=== PATIENT | male | born 1970 | race Caucasian/White ===

== ENCOUNTER 2020-07-10 07:58 | Outpatient (REF) | payer OTHER, SELFPAY ==
--- NOTE | 2020-07-10 08:26 | XR_ITS ---
EXAMINATION: XR CALCANEUS, LEFT CLINICAL INFORMATION: Heel pain COMPARISON: None TECHNIQUE: Lateral and axial views of the left calcaneus were obtained. FINDINGS: No visible acute fracture or dislocation. Subtalar articulation grossly appears maintained. Mild dorsal spurring of the navicular. IMPRESSION: No evidence of acute fracture.
== END 2020-07-10 07:59 | disposition home or self-care (01) ==
LOC: HO.XRAY 07:58
PROVIDERS: PCP Internal Medicine; Visit Provider Internal Medicine
DX: M79.672 Pain in left foot (principal)
CPT/HCPCS: 73650

== ENCOUNTER 2021-06-13 15:04 | Outpatient (REF) | payer OTHER, SELFPAY ==
[2021-06-13 15:30] LABS: Hematocrit 43.4 % (42-52); Hemoglobin 14.9 g/dl (14.0-18.0); Mean Corpuscular HGB Conc 34.3 g/dl (31.0-36.0); Mean Corpuscular Hemoglobin 31.3 pg (27.0-33.0); Mean Corpuscular Volume 91.2 fL (80-98); Mean Platelet Volume 11.3 fL (9.4-12.4); Platelet Count 224 X10*3/uL (160-400); Red Blood Count 4.76 X10*6/uL (4.60-5.80); Red Cell Distribution Width 12.5 % (11.0-16.0); White Blood Count 8.1 X10*3/uL (4.8-10.8)
[2021-06-13 15:56] LABS: Alanine Aminotransferase 41 U/L (0-40); Albumin Level 4.3 g/dL (3.5-5.0); Alkaline Phosphatase 87 U/L (39-117); Anion Gap 12 (12-20); Aspartate Amino Transferase 33 U/L (5-37); Bilirubin Direct 0.2 mg/dL (0.0-0.5); Bilirubin Total 0.6 mg/dL (0.0-1.0); Blood Urea Nitrogen 13 mg/dL (9-16); Calcium 9.6 mg/dL (8.4-10.2); Carbon Dioxide 26 mmol/L (22-29); Chloride 106 mmol/L (96-108); Estimated Glomerular Filt Rate > 60; Glucose Random 125 mg/dL (60-115); Lipase 27 U/L (8-78); Potassium 4.1 mmol/L (3.3-5.1); Sodium 140 mmol/L (135-145); Total Protein 6.9 g/dL (6.5-8.0)
== END 2021-06-13 15:05 | disposition home or self-care (01) ==
LOC: HO.LAB 15:04
PROVIDERS: PCP Internal Medicine; Visit Provider Physician Assistant
DX: I10 Essential (primary) hypertension (principal); K52.9 Noninfective gastroenteritis and colitis, unspecified
CPT/HCPCS: 36415; 80048; 80076; 83690; 85027

== ENCOUNTER 2021-06-25 06:00 | Outpatient (REF) | payer OTHER, SELFPAY ==
--- NOTE | ~2021-06-25 | CT_ITS ---
EXAMINATION: CT ABDOMEN AND PELVIS WITH CONTRAST CLINICAL INFORMATION: None infected gastroenteritis and colitis COMPARISON: Previous CT November 2013 TECHNIQUE: Multidetector volumetric images were obtained from the superior aspect of the liver through the pubic symphysis following administration 85 mL of Omnipaque 350 intravenous contrast. Sagittal and coronal reformatted images were obtained on the technologist's workstation. Oral contrast: Yes This CT examination was performed using dose optimization techniques as appropriate, variously including the following: *Automated exposure control *Adjustment of mA and/or kV according to patient size (this includes techniques or standardized protocols for targeted exams where dose is matched to indication/reason for exam; i.e. extremities or head) *Use of iterative reconstruction technique DLP: 516 mGy-cm FINDINGS: LUNG BASES: The visualized lung bases are unremarkable. LIVER, GALLBLADDER, AND BILIARY TREE: There is mild fatty infiltration of the liver. The liver is otherwise normal. No focal hepatic lesion or biliary ductal dilatation is present. The gallbladder is unremarkable with no evidence of radiopaque gallstones, gallbladder wall thickening, or obvious pericholecystic inflammatory changes. PANCREAS: Unremarkable. SPLEEN: Unremarkable. ADRENAL GLANDS: Unremarkable. KIDNEYS AND URETERS: The kidneys are normal in size, shape, and attenuation. No hydronephrosis, hydroureter, or calculi seen. No perinephric stranding. BLADDER: Unremarkable. GASTROINTESTINAL TRACT: There is question of mild bowel wall thickening of the left colon and sigmoid colon/mild colitis. There is diverticulosis of the colon. No evidence of diverticulitis is seen. Small and large bowel is otherwise unremarkable. The appendix is normal. There is a small gastric diverticulum arising from the posterior proximal stomach. Stomach is otherwise unremarkable. The appendix is unremarkable. ABDOMINAL WALL: There are small inguinal hernias containing fat. LYMPH NODES: Normal. VASCULAR: Unremarkable. PELVIC VISCERA: Unremarkable. OSSEOUS STRUCTURES: There are mild degenerative changes of the spine. There is new increased sclerosis of the left pubic symphysis. There are small millimeter in size of sclerotic densities in the bilateral pelvis that are stable. CT/CT abdomen pelvis w con IMPRESSION: Question mild colitis of the distal colon. Diverticulosis of the colon. No evidence of diverticulitis. Small gastric diverticulum. Normal small bowel. Mild fatty infiltration of the liver. New sclerotic lesion in the left pubic symphysis. Follow-up bone scan recommended. Findings will be communicated by the [facility] work flow rn faculty.
[2021-06-25] MEDS: iohexoL 350 MG/ML 100 ML INFUS..BTL IV (08:47)
[2021-06-25] MEDS: Barium Sulfate Oral (Berry) 450 ML ORAL.SUSP 900 ML PO (08:49)
== END 2021-06-25 06:01 | disposition home or self-care (01) ==
LOC: HO.CT 06:00
PROVIDERS: PCP Internal Medicine; Visit Provider Physician Assistant
DX: K52.9 Noninfective gastroenteritis and colitis, unspecified (principal)
CPT/HCPCS: 74177; Q9967

== ENCOUNTER 2021-07-29 13:00 | Outpatient (REF) | payer OTHER, SELFPAY ==
[2021-07-29 15:40] LABS: Appearance Urine CLEAR; Color Urine YELLOW; Glucose Urine UA NEG (NEG); Leukocyte Esterase Urine NEG (NEG); Nitrite Urine NEG (NEG); Specific Gravity - Urine >= 1.030 (1.005-1.025); Urine Blood NEG (NEG); Urine Ketones NEG (NEG); Urine Protein NEG (NEG-TRACE)
== END 2021-07-29 13:01 | disposition home or self-care (01) ==
LOC: HO.LAB 13:00
PROVIDERS: PCP Internal Medicine; Referring Provider Internal Medicine; Visit Provider Nurse Practitioner
DX: K29.70 Gastritis, unspecified, without bleeding (principal); B96.81 Helicobacter pylori [H. pylori] as the cause of diseases classified elsewhere; R19.7 Diarrhea, unspecified; R22.1 Localized swelling, mass and lump, neck; R39.198 Other difficulties with micturition; Z80.0 Family history of malignant neoplasm of digestive organs
CPT/HCPCS: 36415; 81003; 86003

== ENCOUNTER → 2021-08-14 10:53 | Outpatient (REF) | payer OTHER, SELFPAY ==
--- NOTE | ~2021-08-14 | NM_ITS ---
EXAMINATION: NM BONE SCAN OF THE WHOLE BODY CLINICAL INFORMATION: Disorder of bone, new sclerotic lesion in the left pubic region. Left shoulder pain (rotator cuff), left knee and ankle pain intermittently. COMPARISON: No previous bone scan is available for comparison. No recent radiographs are available for comparison. The diagnostic CT scan of the abdomen and pelvis, dated 06/25/2021, is available for comparison. TECHNIQUE: Multiple gamma scintillation camera images of the whole body were performed 3 hours following the intravenous administration of 33 mCi Tc-99m MDP. FINDINGS: In the head, a small anterior midline maxillary focus of increased activity is present, probably related to dental disease. In the thoracic cage and upper extremities, there is mildly increased activity acromioclavicular and sternoclavicular joints bilaterally and in multiple periarticular foci in both hands and wrists, all likely arthritic. Some residual radiopharmaceutical at the injection site in the right antecubital fossa is noted. In the spine, no significant abnormalities are present. There is a minimal thoracolumbar scoliosis just barely perceptible with lower lumbar convexity to the left. In the pelvis, there is very minimally increased activity in the left side of the symphysis pubis. This corresponds to a sclerotic focus at this site on the 06/25/2021 CT scan. In the lower extremities, there is a mild diffuse increase in activity in the knees, slightly more intense on the left and predominantly in the patellar and medial compartments. There is minimally increased activity in the ankles bilaterally and the proximal feet. No other definite bony abnormalities are noted. The urinary bladder and faint visualization of both kidneys are noted. The CT scan dated 06/25/2021 shows a sclerotic focus in the left side of the symphysis pubis which was not present on a prior 11/17/2013 CT scan. NM/NM bone scan whole body IMPRESSION: Minimal abnormality in the left side of the symphysis pubis is nonspecific. The mild intensity suggests this is not due to metastatic disease, although the latter cannot be entirely ruled out. No other abnormality suspicious for metastatic disease are present at any site. Mild nonspecific abnormalities are noted as described above and these are all likely arthritic or traumatic in etiology. None of these abnormalities is strongly suspicious for metastatic disease.
== END ==
LOC: HO.NUCMED 10:53
PROVIDERS: Visit Provider Physician Assistant
DX: M89.9 Disorder of bone, unspecified (principal); Q78.2 Osteopetrosis
CPT/HCPCS: 78306; A9503

== ENCOUNTER 2022-03-24 08:48 | Outpatient (REF) | payer OTHER, SELFPAY ==
--- NOTE | ~2022-03-24 | XR_ITS ---
EXAMINATION: XR CERVICAL SPINE CLINICAL INFORMATION: Paresthesia of the skin. COMPARISON: None TECHNIQUE: 3 views of the cervical spine were obtained. FINDINGS: There is mild straightening of cervical lordosis. The vertebral heights and alignment are normal. There is loss of C4-C5, C5-C6 disc height with mild ventral and posterior spondylosis. No visible acute fracture, dislocation or subluxation seen. The prevertebral soft tissues are normal. XR/XR cervical spine 3V IMPRESSION: Degenerative disc changes C4-C5 and C5-C6 disc levels with mild ventral spondylosis. No visible acute fracture, dislocation or lytic process seen.
[2022-03-24 09:07] LABS: MANUAL DIFF FLAG NO
[2022-03-24 09:31] LABS: Basophils Absolute Auto 0.1 X10*3/uL (0.0-0.2); Basophils Percent Auto 0.6 % (0-2); Eosinophils Absolute Auto 0.2 X10*3/uL (0.0-0.4); Eosinophils Percent Auto 2.7 % (0-4); Hematocrit 42.3 % (42.0-52.0); Hemoglobin 14.7 g/dl (14.0-18.0); Imm Gran Abs Auto 0.04 X10*3/uL (0.00-0.03); Imm Gran Pct Auto 0.5 % (0.0-0.4); Lymphocytes Absolute Auto 2.3 X10*3/uL (1.2-4.9); Lymphocytes Percent Auto 29.8 % (20-40); Mean Corpuscular HGB Conc 34.8 g/dl (31.0-36.0); Mean Corpuscular Hemoglobin 32.2 pg (27.0-33.0); Mean Corpuscular Volume 92.6 fL (80.0-98.0); Mean Platelet Volume 11.4 fL (9.4-12.4); Monocytes Absolute Auto 0.5 X10*3/uL (0.1-1.2); Monocytes Percent Auto 6.6 % (2-11); Neutrophils Absolute Auto 4.7 x10*3/uL (2.0-8.3); Neutrophils Percent Auto 59.8 % (45-73); Platelet Count 197 X10*3/uL (160-400); Red Blood Count 4.57 X10*6/uL (4.60-5.80); Red Cell Distribution Width 12.2 % (11.0-16.0); White Blood Count 7.8 X10*3/uL (4.8-10.8)
[2022-03-24 10:14] LABS: Alanine Aminotransferase 39 U/L (0-40); Alkaline Phosphatase 82 U/L (39-117); Anion Gap 11 (12-20); Aspartate Amino Transferase 29 U/L (5-37); Blood Urea Nitrogen 14 mg/dL (9-16); Calcium 8.7 mg/dL (8.4-10.2); Carbon Dioxide 26 mmol/L (22-29); Chloride 107 mmol/L (96-108); Cholesterol 159 mg/dL; Estimated Glomerular Filt Rate > 60; Glucose Fasting 98 mg/dL (60-99); HDL Cholesterol 49 mg/dL; LDL Cholesterol Calculated 89 mg/dl; Potassium 4.2 mmol/L (3.3-5.1); Sodium 140 mmol/L (135-145); Total Protein 6.2 g/dL (6.5-8.0); Triglycerides 107 mg/dL
[2022-03-24 10:42] LABS: Prostate Specific Antigen Scr 0.34 ng/mL (<0.05-4.0); TSH reflex Free T4 0.62 uIU/mL (0.32-4.0); Vitamin D 25-OH Total 29.6 ng/mL (>30)
[2022-03-24 11:09] LABS: Appearance Urine CLEAR; Color Urine YELLOW; Glucose Urine UA NEG (NEG); Leukocyte Esterase Urine NEG (NEG); Nitrite Urine NEG (NEG); PH 6.5 (5.0-8.0); Specific Gravity - Urine 1.015 (1.005-1.025); Urine Blood NEG (NEG); Urine Ketones NEG (NEG); Urine Protein NEG (NEG-TRACE)
== END 2022-03-24 08:49 | disposition home or self-care (01) ==
LOC: HO.XRAY 08:48
PROVIDERS: PCP Internal Medicine; Visit Provider Internal Medicine
DX: Z00.00 Encounter for general adult medical examination without abnormal findings (principal); Z12.5 Encounter for screening for malignant neoplasm of prostate; E78.00 Pure hypercholesterolemia, unspecified; E55.9 Vitamin D deficiency, unspecified; R20.2 Paresthesia of skin
CPT/HCPCS: 36415; 72040; 80053; 80061; 81003; 82306; 84153; 84443; 85025

== ENCOUNTER 2022-05-05 11:58 | Outpatient (REF) | payer OTHER, SELFPAY ==
--- NOTE | ~2022-05-05 | XR_ITS ---
EXAMINATION: XR SHOULDER, LEFT CLINICAL INFORMATION: Pain COMPARISON: Previous x-ray October 2012 TECHNIQUE: AP external rotation, Grashey, scapular Y, and axillary views of the left shoulder. FINDINGS: Bone alignment is normal. No fracture or dislocation is seen. The glenohumeral joint is normal. There is arthritis at the acromioclavicular joint. Soft tissues are unremarkable. XR/XR shoulder LT min 2V IMPRESSION: Arthritis at the acromioclavicular joint.
== END 2022-05-05 11:59 | disposition home or self-care (01) ==
LOC: HO.HOSX 11:58
PROVIDERS: Visit Provider Orthopaedic Surgery
DX: M25.512 Pain in left shoulder (principal)
CPT/HCPCS: 73030

== ENCOUNTER 2022-05-26 18:06 | Outpatient (REF) | payer OTHER, SELFPAY ==
--- NOTE | ~2022-05-26 | MR_ITS ---
EXAMINATION: MR CERVICAL SPINE WITHOUT CONTRAST CLINICAL INFORMATION: 52-year-old with self-reported left-sided arm and finger numbness and tingling. COMPARISON: None. TECHNIQUE: MRI of the cervical spine was obtained using routine sequences without contrast. FINDINGS: Alignment: There is mild lordotic reversal centered at the C4-C5 level. Trace retrolisthesis noted at C6-C7. Craniocervical Junction/C1-C2 Articulations: Intact and aligned. Small effusions are noted at both atlantooccipital joints, which are nonspecific. Minor degenerative changes noted at the anterior atlantodental joint. Visualized Intracranial Structures: Within normal limits. Vertebral Bodies: Normal height. Disc Spaces and Endplates: Moderate disc space height loss at C3-C4 and severe disc space height loss at C4-C5 and C5-C6 with moderate to severe disc space height loss at C6-C7 and mild degrees of anterior marginal spondylosis between C4-C5 and C6-C7 inclusive. Schmorl's nodes noted at the C4-C5, C5-C6 and C6-C7. Multilevel intradiscal degenerative signal changes at these levels. Bone Marrow: Type I and type III degenerative marrow signal changes along the endplates at C4-C5. No suspicious marrow replacing process. C2-C3: Small central disc protrusion with a mild flattening of the central dural sac without cord impingement or canal stenosis. Mild uncinate process spurring on the left with minor bilateral facet arthrosis and mild left-sided neural foraminal stenosis. C3-C4: Broad-based central to left paramedian disc osteophyte complex noted with [id number] flattening of the dural sac asymmetric to the left without cord impingement or significant central canal stenosis. There is uncovertebral spurring, left more than right and minor facet arthrosis, with moderate to severe right and severe left-sided neural foraminal stenosis. C4-C5: Broad-based central to left paramedian disc osteophyte complex with moderate flattening of the ventral dural sac asymmetric to the left without spinal cord impingement or significant central canal stenosis. Slight ventral cord deformity noted on the left with a minimal degree of left-sided spinal cord volume loss noted consistent with a mild degree of spondylitic myelomalacia. There is uncovertebral spurring left more than right, with minor facet arthropathy, with severe left-sided and moderate to severe right-sided neural foraminal stenosis and left lateral recess stenosis. C5-C6: Broad-based disc osteophyte complex asymmetric to the left with flattening of the ventral dural sac left more than right without cord impingement or significant central canal stenosis. There is uncovertebral spurring left more than right with severe bilateral neural foraminal stenosis and left lateral recess stenosis. C6-C7: Broad-based disc protrusion asymmetric to the left with [id number] flattening of the ventral dural sac without cord impingement. Mild central canal stenosis is noted, with ligamentum flavum thickening at this level. There is uncovertebral spurring bilaterally and minor facet arthropathy with severe bilateral neural foraminal stenosis, left more than right. C7-T1: No disc herniation or canal stenosis. [id number] facet arthropathy noted bilaterally without significant canal stenosis. Mild left-sided neural foraminal stenosis is noted. Small central disc protrusion noted at T2-T3 without cord impingement. Spinal Cord: The cervical and visualized upper thoracic spinal cord is normal in signal intensity throughout, without focal lesion, edema or syrinx. Extracranial Soft Tissues: There are numerous nonenlarged bilateral upper cervical lymph nodes, which are nonspecific findings. Correlate for any history of infectious or inflammatory etiology. Normal signal voids are seen within the visualized major neck vessels. MR/MR cervical spine wo con IMPRESSION: 1. Mild lordotic reversal centered at C4-C5 with slight retrolisthesis at C6-C7, with multilevel DDD and spondylosis as described above. 2. Multilevel posterior disc osteophyte complex is asymmetric to the left between C3-C4 and C5-C6 inclusive and disc protrusions at C2-C3, C6-C7 and T2-T3 as discussed above with mild canal stenosis at C6-C7. No spinal cord impingement. Mild spondylitic myelomalacia on the left suspected at C5-C6. 3. Multilevel DJD as discussed above with extensive multilevel bilateral bony neural foraminal stenosis, left more than right and left lateral recess stenosis most apparent at C4-C5 and C5-C6 and to a lesser degree at C3-C4 and C6-C7. 4. Numerous nonenlarged upper cervical lymph nodes noted bilaterally. Correlate clinically for any possible infectious or inflammatory etiology.
--- NOTE | ~2022-05-26 | MR_ITS ---
EXAMINATION: MRI SHOULDER WITHOUT CONTRAST, LEFT CLINICAL INFORMATION: Left shoulder pain and weakness. COMPARISON: Left shoulder radiographs dated 05/05/2022 and MRI dated 12/01/2011. TECHNIQUE: Multisequence MR imaging of the left shoulder was obtained without contrast on a high-field strength scanner. FINDINGS: ROTATOR CUFF: Mild supraspinatus tendinosis is redemonstrated. No measurable rotator cuff tendon tear. No muscle atrophy or fatty infiltration. BICEPS: Intact. CORACOACROMIAL ARCH: The undersurface of the acromion is curved with tiny subacromial spurs. Moderate acromioclavicular arthritis, slightly progressed. Fluid and edema within the subacromial subdeltoid bursa, slightly more prominent when compared to the prior examination and consistent with bursitis. LABRUM/CAPSULE: Increasing attenuation and irregularity of the anterior and anteroinferior labrum consistent with irregular fraying. GLENOHUMERAL JOINT/MARROW: Small glenohumeral joint effusion. MR/MR shoulder LT wo con IMPRESSION: 1. Mild supraspinatus tendinosis is unchanged. No measurable rotator cuff tendon tear. 2. Moderate acromioclavicular osteoarthritis, slightly progressed. Tiny subacromial spurs. 3. Subacromial-subdeltoid bursitis, slightly more prominent when compared to the prior MRI. 4. Increasing irregular fraying through the anterior and anteroinferior labrum. Small glenohumeral joint effusion.
== END 2022-05-26 18:07 | disposition home or self-care (01) ==
LOC: HO.MRI 18:06
PROVIDERS: Visit Provider Orthopaedic Surgery
DX: M67.912 Unspecified disorder of synovium and tendon, left shoulder (principal); R94.138 Abnormal results of other function studies of peripheral nervous system
CPT/HCPCS: 72141; 73221

== ENCOUNTER 2022-07-18 10:52 | Outpatient (REF) | payer OTHER, SELFPAY ==
--- NOTE | ~2022-07-18 | XR_ITS ---
EXAMINATION: XR CHEST CLINICAL INFORMATION: Signs and symptoms of Circulatory abnormality COMPARISON: None TECHNIQUE: 2 views of the chest were obtained. FINDINGS: No significant abnormality is noted involving the heart, lungs, mediastinum, bony thorax or soft tissues. XR/XR chest 2V IMPRESSION: Unremarkable chest examination.
== END 2022-07-18 10:53 | disposition home or self-care (01) ==
LOC: HO.XRAY 10:52
PROVIDERS: PCP Internal Medicine; Visit Provider Internal Medicine
DX: R09.89 Other specified symptoms and signs involving the circulatory and respiratory systems (principal)
CPT/HCPCS: 71046

== ENCOUNTER 2023-02-11 07:57 | Outpatient (REF) | payer OTHER, SELFPAY ==
--- NOTE | ~2023-02-11 | XR_ITS ---
EXAMINATION: XR SHOULDER, LEFT CLINICAL INFORMATION: Left shoulder pain COMPARISON: 05/05/2022 TECHNIQUE: AP external rotation, Grashey, scapular Y, and axillary views of the left shoulder. FINDINGS: The bones and soft tissues are normal. No fracture. Glenohumeral and acromioclavicular alignment is anatomic with normal joint space. No abnormal soft tissue calcifications. XR/XR shoulder LT min 2V IMPRESSION: Normal left shoulder.
[2023-02-11 08:20] LABS: MANUAL DIFF FLAG NO
[2023-02-11 08:43] LABS: Basophils Absolute Auto 0.1 X10*3/uL (0.0-0.2); Basophils Percent Auto 0.9 % (0-2); Eosinophils Absolute Auto 0.2 X10*3/uL (0.0-0.4); Eosinophils Percent Auto 2.9 % (0-4); Hematocrit 47.1 % (42.0-52.0); Hemoglobin 16.1 g/dl (14.0-18.0); Imm Gran Abs Auto 0.04 X10*3/uL (0.00-0.03); Imm Gran Pct Auto 0.5 % (0.0-0.4); Lymphocytes Absolute Auto 2.5 X10*3/uL (1.2-4.9); Lymphocytes Percent Auto 30.6 % (20-40); Mean Corpuscular HGB Conc 34.2 g/dl (31.0-36.0); Mean Corpuscular Hemoglobin 31.9 pg (27.0-33.0); Mean Corpuscular Volume 93.5 fL (80.0-98.0); Mean Platelet Volume 11.1 fL (9.4-12.4); Monocytes Absolute Auto 0.6 X10*3/uL (0.1-1.2); Monocytes Percent Auto 7.6 % (2-11); Neutrophils Absolute Auto 4.7 x10*3/uL (2.0-8.3); Neutrophils Percent Auto 57.5 % (45-73); Platelet Count 249 X10*3/uL (160-400); Red Blood Count 5.04 X10*6/uL (4.60-5.80); Red Cell Distribution Width 12.7 % (11.0-16.0); White Blood Count 8.2 X10*3/uL (4.8-10.8)
[2023-02-11 09:45] LABS: Alanine Aminotransferase 44 U/L (0-40); Albumin Level 4.3 g/dL (3.5-5.0); Alkaline Phosphatase 84 U/L (39-117); Anion Gap 11 (12-20); Aspartate Amino Transferase 30 U/L (5-37); Bilirubin Total 1.1 mg/dL (0.0-1.0); Blood Urea Nitrogen 19 mg/dL (9-16); Calcium 9.3 mg/dL (8.4-10.2); Carbon Dioxide 28 mmol/L (22-29); Chloride 107 mmol/L (96-108); Cholesterol 202 mg/dL; Estimated Glomerular Filt Rate > 60; Glucose Fasting 105 mg/dL (60-99); HDL Cholesterol 50 mg/dL; LDL Cholesterol Calculated 130 mg/dl; Sodium 141 mmol/L (135-145); Total Protein 6.6 g/dL (6.5-8.0); Triglycerides 110 mg/dL
[2023-02-11 09:52] LABS: Prostate Specific Antigen Scr 0.35 ng/mL (<0.05-4.0); TSH reflex Free T4 1.36 uIU/mL (0.32-4.0); Vitamin D 25-OH Total 40.7 ng/mL (>30)
[2023-02-11 10:09] LABS: Appearance Urine Clear; Color Urine Yellow; Glucose Urine UA Negative (Negative); Leukocyte Esterase Urine Negative (Negative); Nitrite Urine Negative (Negative); PH 5.5 (5.0-9.0); Specific Gravity - Urine 1.025 (1.005-1.025); Urine Blood Negative (Negative); Urine Ketones Negative (Negative); Urine Protein Negative (Neg-Trace)
== END 2023-02-11 07:58 | disposition home or self-care (01) ==
LOC: HO.XRAY 07:57
PROVIDERS: PCP Internal Medicine; Visit Provider Internal Medicine
DX: Z00.00 Encounter for general adult medical examination without abnormal findings (principal); Z12.5 Encounter for screening for malignant neoplasm of prostate; I10 Essential (primary) hypertension; E55.9 Vitamin D deficiency, unspecified; E78.00 Pure hypercholesterolemia, unspecified; R30.0 Dysuria; M12.812 Other specific arthropathies, not elsewhere classified, left shoulder
CPT/HCPCS: 36415; 73030; 80053; 80061; 81003; 82306; 84153; 84443; 85025

== ENCOUNTER 2023-04-21 10:41 | Emergency (ER) | payer OTHER, SELFPAY ==
[2023-04-21 10:57] VITALS: BP 148/99; PULSE 84; RESP 16; TEMP 36.6; O2SAT 97; BMI 28.9
--- NOTE | 2023-04-21 12:58 | ED_ITS ---
HPI - Neuro Symptoms/Deficit General Chief Complaint: Stroke Stated Complaint: numbness on face Time Seen by Provider: 04/21/23 11:02 Source: patient Mode of arrival: ambulatory Limitations: no limitations History of Present Illness HPI Narrative: 53-year-old female presents with right-sided facial weakness. Symptoms started within the last 24 hours. The symptoms are moderate to severe. There is no clear relieving or exacerbating features. Patient notes discomfort in the right eye. He has no significant difficulty with tearing or discharge. Denies any headache, trauma. Patient reports recent viral respiratory infection. Patient has no history of stroke, TIA, cardiovascular disease. Related Data Previous Rx's Medication Instructions Recorded cyclobenzaprine 5 mg tablet 5 mg PO BID PRN muscle spasm #30 01/20/23 tabs lisinopril 5 mg tablet 5 mg PO DAILY 90 days #90 tabs 01/20/23 ibuprofen 800 mg tablet 800 mg PO TID PRN for fever #90 02/24/23 tabs prednisone 20 mg tablet 60 mg PO DAILY 7 days #21 tabs 04/21/23 valacyclovir 1 gram tablet 1,000 mg PO Q8H 7 days #21 tabs 04/21/23 (Valtrex) Allergies Allergy/AdvReac Type Severity Reaction Status Date / Time hydrocodone AdvReac Intermediate nausea,dizz Verified 01/20/23 09:06 iness Review of Systems Review of Systems: CONSTITUTIONAL: Denies weight loss, fever and chills. HEENT: Denies changes in vision and hearing. RESPIRATORY: Denies SOB and cough. CV: Denies palpitations no CP. GI: Denies abdominal pain, nausea, vomiting and diarrhea. : Denies dysuria and urinary frequency. MSK: Denies myalgia and joint pain. SKIN: Denies rash and pruritus. NEUROLOGICAL: Denies headache and syncope. PSYCHIATRIC: Denies recent changes in mood. Denies anxiety and depression. All other ROS are negative unless in HPI PMFSH Past Medical History Medical History Achilles tendinitis Allergic rhinitis Benign essential hypertension Cervical disc disease Occipital headache Overweight (BMI 25.0-29.9) Rotator cuff arthropathy of left shoulder Surgical History History of colonoscopy Family History Family History Father CVD (cardiovascular disease) Mother Diabetes Brain tumor Social History Social History Housing: House Alcohol intake: current Alcohol intake frequency: holidays/special occasions only Patient Tobacco Use Status: Former Tobacco user e-Cigarette/Vaping Use: Never Used Second Hand Smoke Exposure: Yes Advance Directives: No Advance Directives Information Provided: No service: No Current occupational status: employed Cognitive needs: No Hearing needs: No Vision needs: Yes Physical Exam Vital Signs: Vital Signs: Last Vital Signs Temp 98 F 04/21/23 10:57 Pulse 84 04/21/23 10:57 Resp 16 04/21/23 10:57 BP 148/99 H 04/21/23 10:57 Pulse Ox 97 04/21/23 10:57 O2 Del Method Room Air 04/21/23 10:57 BMI result Body Mass Index 28.9 GEN: Well developed, no acute distress, alert, oriented HEENT: Normocephalic, atraumatic, normal external ears, nose appears normal, no oropharyngeal edema or exudates Eyes: Normal to appearance Neck: Supple, no lymphadenopathy Respiratory: Talks in complete sentences, no respiratory distress, clear to auscultation bilaterally Cardiovascular: Regular rate and rhythm, no murmurs rubs or gallops Abdomen: Soft, nontender, nondistended, no guarding, no rebound Back: No CVA tenderness Extremities: No clubbing cyanosis or edema Neurologic: Right-sided facial droop, involves the forehead with difficulty furrowing his brow, closing eye Skin: No rash Course Course Course Narrative: Patient is being diagnosed with Franklin's palsy. Examination is very consistent with this. Patient will start prednisone and Valtrex. Will follow up with his primary care provider. He will return for any worsening or progression of symptoms. Medical Decision Making Medical Decision Making MDM Narrative: 53-year-old male presents with right-sided facial droop. Symptoms started within the last 24 hours. They are more symptoms are moderate. Examination is consistent with Franklin's palsy including the forehead. At this point, I will treat the patient for Franklin's palsy with Valtrex and prednisone. He will be inst ructed to return for any worsening or concerning symptoms. Differential Diagnosis Differential Diagnoses: The differential diagnosis associated with the presentation includes (Franklin's palsy, stroke, peripheral neuropathy) Tests considered The following testing was considered but not selected: Routine laboratory analysis, CT scan of the head. This not appear to be indicated based on the diagnosis of Franklin's palsy. Prescription Management I considered prescription management with: Antiviral Discharge Plan Discharge Clinical Impression: Franklin's palsy Patient Disposition: Home, Self-Care Instructions: Franklin Palsy (ED) Prescriptions: New valacyclovir [Valtrex] 1 gram tablet 1,000 mg PO Q8H 7 Days Qty: 21 0RF prednisone 20 mg tablet 60 mg PO DAILY 7 Days Qty: 21 0RF No Action ibuprofen 800 mg tablet 800 mg PO TID PRN (Reason: for fever) Qty: 90 0RF lisinopril 5 mg tablet 5 mg PO DAILY 90 Days Qty: 90 1RF cyclobenzaprine 5 mg tablet 5 mg PO BID PRN (Reason: muscle spasm) Qty: 30 2RF Referrals: Valeriy Ayon MD [Primary Care Provider] - 1 week Interventions: ED Discharge Assessment Last Done: 04/21/23 11:22 Discharge Date/Time: 04/21/23 11:22
== END 2023-04-21 11:22 | disposition home or self-care (01) ==
PROVIDERS: Emergency Provider Emergency Medicine; PCP Internal Medicine
DX: G51.0 Bell's palsy (principal)
CPT/HCPCS: 99282; 99283

== ENCOUNTER 2023-04-30 08:36 | Outpatient (AMB) | payer OTHER, SELFPAY ==
[2023-04-30 08:37] VITALS: BP 112/80; PULSE 86; O2SAT 96; BMI 29.9
--- NOTE | 2023-04-30 08:37 | A.OFFPC_ITS ---
Vital Signs 04/30/23 08:37 Height 5 ft 8 in Weight 196 lb 8 oz BMI 29.9 BP 112/80 Blood Pressure Location Lt brachial Position Sitting Pulse 86 Pulse Source Pulse Oximeter Pulse Oximetry (%) 96 Oxygen Delivery Method Room Air Intake Visit Reasons: bells palsy Recreation Therapist Required: No Accompanied by: Self / Same As Patient Allergies hydrocodone Adverse Reaction (Intermediate, Verified 04/30/23 09:01) nausea,dizziness Medication List - Last Reconciled 04/30/23 by Valeriy Ayon MD cyclobenzaprine 5 mg PO BID PRN ibuprofen 800 mg PO TID PRN lisinopril 5 mg PO DAILY 90 days Tobacco use date assessed: 04/30/23 Dental Screening Dental Screen Date: 04/30/23 Did you have a dental visit in the last 12 months?: No Did you have a dental problem in the last 6 months where you did not have access to dental care?: No Was dental information given to patient?: Patient has dentist HPI bells palsy HPI Details Patient comes in today for his F follow up visit He went to the ER last week for sudden onset of right-sided facial weakness and numbness Was on a vacation cruise with his family prior to the onset of his symptoms and recalls that he was not feeling too well at the start of the cruise (headaches, ear pain, hives) 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 and started on Valtrex and Prednisone x 1 week, which he just finished a couple of days ago States that he is still experiencing recurrent headaches and still has not noticed any significant improvement of his right facial numbness and weakness Has noticed that he is not able to close his right eye completely when he is sleeping and in wondering if wearing an eye patch can help He denies any fever or sore throat; still has some mild nasal congestion at times Denies any chest pains, no SOB No nausea/vomiting, no abdominal pain No change in bowel habits noted Adds that he has not been able to sleep at night for the past few weeks now and would like to get something temporarily to help him get some sleep PFSH Medical History Achilles tendinitis Allergic rhinitis Benign essential hypertension Cervical disc disease Occipital headache Overweight (BMI 25.0-29.9) Rotator cuff arthropathy of left shoulder Surgical History History of colonoscopy Family History Father CVD (cardiovascular disease) Mother Diabetes Brain tumor Social History Housing: House Alcohol intake: current Alcohol intake frequency: holidays/special occasions only Patient Tobacco Use Status: Former Tobacco user e-Cigarette/Vaping Use: Never Used Second Hand Smoke Exposure: Yes service: No Current occupational status: employed Cognitive needs: No Hearing needs: No Vision needs: Yes Questionnaire PHQ-9 Over the last 2 weeks, how often have you been bothered by any of the following problems? 1. Little interest or pleasure in doing things: not at all 2. Feeling down, depressed, or hopeless: not at all 3. Trouble falling or staying asleep, or sleeping too much: not at all 4. Feeling tired or having little energy: not at all 5. Poor appetite or overeating: not at all 6. Feeling bad about yourself - or that you are a failure or have let yourself or your family down: not at all 7. Trouble concentrating on things, such as reading the newspaper or watching television: not at all 8. Moving or speaking so slowly that other people could have noticed. Or the opposite - being so fidgety or restless that you have been moving around a lot more than usual: not at all 9. Thoughts that you would be better off or of hurting yourself in some way: not at all Total score: 0 Depression Screening Interpretation: Negative 75213 - PHQ-9 Billing: Yes Source: Developed by Drs. Solo Bach, Payton Lundy, Ryan Vallejo and colleagues, with an educational norris from [employer]. Thrive Questionnaire Date Thrive assessed: 04/30/23 I am a: Patient What is your living situation today?: I have a steady place to live Within the past 12 months, did the food you bought not last and you didn't have the money to get more?: Never true Within the past 12 months, did you worry whether your food would run out before you got money to buy more?: Never true Do you have trouble paying for medicines?: No Do you have trouble getting transportation to medical appointments?: No Do you have trouble paying your heating and electricity bill?: No Do you have trouble taking care of your child, family member or friend?: No Do you have trouble with day-to-day activities such as bathing, preparing meals, shopping, managing finances, etc.?: No Are you currently unemployed and looking for a job?: No Are you interested in more education?: No Please select the resources that you would like help with: None Currently or been in a relationship where the following occur: no concerns reported AUDIT C Alcohol Use Questionnaire (AUDIT-C) 1. How often do you have a drink containing alcohol?: Monthly or less 2. How many drinks containing alcohol do you have on a typical day when you are drinking?: 1 or 2 3. How often do you have six or more drinks on one occasion?: Never Total Score: 1 Score Reviewed/Action Taken: Yes DYLAN-7 AMB Questionnaire DYLAN-7 Date DYLAN - 7 assessed: 04/30/23 Feeling nervous, anxious, or on edge: 0 = Not at all Not being able to stop or control worryin = Not at all Worrying too much about different things: 0 = Not at all Trouble relaxin = Not at all Being so restless that it is hard to sit still: 0 = Not at all Becoming easily annoyed or irritable: 0 = Not at all Feeling afraid as if something awful might happen: 0 = Not at all Total DYLAN-7 score (0-4 normal; 5-9 mild; 10-14 moderate; 15-21 severe): 0 Source: Developed by Drs. Solo Bach, Payton Lundy, Ryan Vallejo and colleagues, with an educational norris from [employer]. Review of Systems Const Denies chills, Reports difficulty sleeping, Reports fatigue, Denies fever(s) and Reports headache(s) (recurrent) Eyes Denies blurry vision ENT Denies dysphagia, Denies dry mouth, Reports otalgia (in the right ear at times, mild), Denies facial pain, Reports headache(s) (recurrent), Reports nasal congestion (mild, on and off), Denies odynophagia, Denies sinus pain and Denies sore throat Card Denies chest pain, Denies palpitations and Denies dyspnea Resp Denies cough and Denies dyspnea GI Denies abdominal pain, Denies constipation, Denies dysphagia, Denies heartburn, Denies diarrhea, Denies nausea, Denies odynophagia and Denies vomiting Denies dysuria, Denies nocturia and Denies urinary frequency Skin/Breast Denies rash Neuro Details: (+) numbness and palsy/weakness over the right side of the face Reports headache(s) (recurrent) Endo Reports fatigue and Denies palpitations Physical exam (Primary Care) Vital Signs: Last Vital Signs Pulse 86 04/30/23 08:37 BP 112/80 04/30/23 08:37 Pulse Ox 96 04/30/23 08:37 Oxygen Delivery Method Room Air 04/30/23 08:37 BMI result Body Mass Index 29.9 Tobacco/Smoking Status: Tobacco use Status Tobacco use date assessed 04/30/23 04/30/23 08:43 Patient Tobacco Use Status Former Tobacco user 04/30/23 08:43 e-Cigarette/Vaping Use Never Used 04/30/23 08:43 PHQ-9: PHQ-9 Score PHQ-9: Total score 0 04/30/23 08:43 Depression Screening Interpretation: Negative Thrive Assessment: Date of Thrive Assessment Date Thrive assessed 04/30/23 04/30/23 08:43 Currently or been in a relationship where the following occur: no concerns reported Const General: no acute distress and alert HENMT Other: (+) right facial palsy, with shallow right nasolabial fold; (+) ptosis of the right upper eyelid Ears: TM's normal bilaterally and EAC's normal Throat: Yes posterior oropharynx normal and Yes tonsils normal (no TP congestion) Neck Neck: Yes no lymphadenopathy and Yes supple Resp Auscultation: clear to auscultation bilaterally, no rales and no wheezes Cardio Rate: regular rate Rhythm: regular rhythm Heart sounds: no murmurs GI Palpation (GI): Soft to palpation, nontender and No hepatosplenomegaly present Skin General skin exam: no rashes or lesions noted Extrem General: Yes no clubbing, cyanosis or edema Assessment and Plan Assessment & Plan (1) 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 - Franklin's palsy Plan: Will send patient for some labs HELEN for further evaluation, including test for Lyme disease - advised that if his Lyme disease titer comes back positive, then we will need to treat him for Lyme's S/P 7 days of oral Valtrex and Prednisone but will extend his Valacyclovir 1 gm Q 8 hours for another 5 days Advised that he can take OTC NSAIDs PRN for his headaches and pain Reassurance provided regarding the benign nature of Franklin's Palsy; patient handout regarding Franklin's Palsy also provided to patient Patient is also advised to keep his right eye covered as often as he can, including when he is sleeping, to keep his eye from drying out as Franklin's Palsy disrupts the facial nerve and he will not be able to close his eye completely or blink it as often as he should until his symptoms clear up completely, which may take weeks to sometimes months (2) Insomnia: Code(s): G47.00 - Insomnia, unspecified Qualifiers: Insomnia type: unspecified Qualified Code(s): G47.00 - Insomnia, unspecified Plan: Sleep hygiene discussed Will start him for now on Trazodone 50 mg Q HS PRN Plan Follow up as scheduled next month Orders: Orders Comprehensive Met. Panel Today G51.0 - Franklin's palsy Complete Blood Count Auto Diff Today G51.0 - Franklin's palsy Erythrocyte Sedimentation Rate Today G51.0 - Franklin's palsy, R51.9 - Headache, unspecified Lyme IgG/IgM w/reflex to WB Today G51.0 - Franklin's palsy Medications: New trazodone 50 mg PO BEDTIME PRN 30 tabs 0RF sleep Changed From valacyclovir (Valtrex) 1,000 mg PO Q8H 7 days 21 tabs 0RF G51.0 - Franklin's palsy To valacyclovir (Valtrex) to extend antiviral Tx x 5 more days 1,000 mg PO Q8H 5 days 15 tabs 0RF G51.0 - Franklin's palsy Coding Level of Care Code Est Pt Level 3 (60991) Diagnoses Right-sided Franklin's palsy G51.0 Insomnia G47.00 Insomnia type: unspecified
== END 2023-04-30 09:25 | disposition home or self-care (01) ==
PROVIDERS: PCP Internal Medicine; Visit Provider Internal Medicine
DX: G51.0 Bell's palsy (principal); G47.00 Insomnia, unspecified
CPT/HCPCS: 99213

== ENCOUNTER 2023-05-01 08:23 | Outpatient (REF) | payer OTHER, SELFPAY ==
[2023-05-01 08:39] LABS: MANUAL DIFF FLAG NO
[2023-05-01 08:57] LABS: Basophils Absolute Auto 0.1 X10*3/uL (0.0-0.2); Basophils Percent Auto 0.6 % (0-2); Eosinophils Absolute Auto 0.3 X10*3/uL (0.0-0.4); Eosinophils Percent Auto 2.4 % (0-4); Hematocrit 47.3 % (42.0-52.0); Hemoglobin 15.9 g/dl (14.0-18.0); Imm Gran Abs Auto 0.35 X10*3/uL (0.00-0.03); Imm Gran Pct Auto 2.8 % (0.0-0.4); Lymphocytes Absolute Auto 3.1 X10*3/uL (1.2-4.9); Lymphocytes Percent Auto 24.7 % (20-40); Mean Corpuscular HGB Conc 33.6 g/dl (31.0-36.0); Mean Corpuscular Hemoglobin 32.1 pg (27.0-33.0); Mean Corpuscular Volume 95.6 fL (80.0-98.0); Mean Platelet Volume 10.6 fL (9.4-12.4); Monocytes Percent Auto 7.7 % (2-11); Neutrophils Absolute Auto 7.6 x10*3/uL (2.0-8.3); Neutrophils Percent Auto 61.8 % (45-73); Platelet Count 259 X10*3/uL (160-400); Red Blood Count 4.95 X10*6/uL (4.60-5.80); Red Cell Distribution Width 13.9 % (11.0-16.0); White Blood Count 12.3 X10*3/uL (4.8-10.8)
[2023-05-01 09:37] LABS: Alanine Aminotransferase 83 U/L (0-40); Albumin Level 3.9 g/dL (3.5-5.0); Alkaline Phosphatase 107 U/L (39-117); Anion Gap 19 (12-20); Aspartate Amino Transferase 23 U/L (5-37); Bilirubin Total 0.8 mg/dL (0.0-1.0); Blood Urea Nitrogen 20 mg/dL (9-16); Calcium 9.6 mg/dL (8.4-10.2); Carbon Dioxide 20 mmol/L (22-29); Chloride 103 mmol/L (96-108); Estimated Glomerular Filt Rate > 60; Glucose Random 185 mg/dL (60-115); Potassium 3.9 mmol/L (3.3-5.1); Sodium 138 mmol/L (135-145); Total Protein 7.5 g/dL (6.5-8.0)
[2023-05-01 09:38] LABS: Erythrocyte Sedimentation Rate 21 MM/HR (0-15)
[2023-05-05 02:40] LABS: Lyme Blot 8.53 index
[2023-05-06 15:59] LABS: Lyme Abs Screen POSITIVE
[2023-05-06 16:00] LABS: 18 KD (IgG) Band REACTIVE; 23 KD (IgG) Band REACTIVE; 23 KD (IgM) Band REACTIVE; 28 KD (IgG) Band NON-REACTIVE; 30 KD (IgG) Band NON-REACTIVE; 39 KD (IgM) Band REACTIVE; 39KD (IgG) Band REACTIVE; 41 KD (IgM) Band REACTIVE; 41KD (IgG) Band REACTIVE; 45 KD (IgG) Band NON-REACTIVE; 58 KD (IgG) Band REACTIVE; 66 KD (IgG) Band NON-REACTIVE; 93 KD (IgG) Band REACTIVE; Lyme IgG Blot Interp POSITIVE (NEGATIVE); Lyme IgM Blot Interp POSITIVE (NEGATIVE)
== END 2023-05-01 08:24 | disposition home or self-care (01) ==
LOC: HO.LAB 08:23
PROVIDERS: PCP Internal Medicine; Visit Provider Internal Medicine
DX: G51.0 Bell's palsy (principal); R15.9 Full incontinence of feces
CPT/HCPCS: 36415; 80053; 85025; 85652; 86617; 86618

== ENCOUNTER 2023-05-25 10:00 | Outpatient (AMB) | payer OTHER, SELFPAY ==
[2023-05-25 10:01] VITALS: BP 128/80; PULSE 87; O2SAT 96; BMI 30.5
--- NOTE | 2023-05-25 10:01 | A.OFFPC_ITS ---
Vital Signs 05/25/23 10:01 Height 5 ft 8 in Weight 200 lb 8 oz BMI 30.5 BP 128/80 Blood Pressure Location Lt brachial Position Sitting Pulse 87 Pulse Source Pulse Oximeter Pulse Oximetry (%) 96 Oxygen Delivery Method Room Air Intake Visit Reasons: HTN, left shoulder pain/arm weakness, S/P fall Seismology Technical Officer Required: No Accompanied by: Self / Same As Patient Allergies hydrocodone Adverse Reaction (Intermediate, Verified 05/25/23 10:24) nausea,dizziness Medication List - Last Reconciled 05/25/23 by Valeriy Ayon MD cyclobenzaprine 5 mg PO BID PRN ibuprofen 800 mg PO TID PRN lisinopril 5 mg PO DAILY 90 days trazodone 50 mg PO BEDTIME PRN valacyclovir (Valtrex) 1,000 mg PO Q8H 5 days Tobacco use date assessed: 05/25/23 Dental Screening Dental Screen Date: 05/25/23 Did you have a dental visit in the last 12 months?: Yes Did you have a dental problem in the last 6 months where you did not have access to dental care?: No Was dental information given to patient?: Patient has dentist HPI HTN, left shoulder pain/arm weakness, S/P fall HPI Details Patient comes in today for his follow up visit States that he is feeling better overall and that his right-sided facial weakness from last month has improved significantly since Still has on and off left shoulder pain and neck pain but states that these have been manageable lately He denies any headaches or dizziness Denies any chest pains, no SOB No nausea/vomiting, no abdominal pain No change in bowel habits noted Would like to know how he did on his follow up labs done a few weeks ago [facility] Medical History (Updated 05/25/23 @ 10:53 by Valeriy Ayon MD) Achilles tendinitis Allergic rhinitis Benign essential hypertension Cervical disc disease Occipital headache Overweight (BMI 25.0-29.9) Pure hypercholesterolemia Rotator cuff arthropathy of left shoulder Surgical History History of colonoscopy Family History Father CVD (cardiovascular disease) Mother Diabetes Brain tumor Social History Housing: House Alcohol intake: current Alcohol intake frequency: holidays/special occasions only Patient Tobacco Use Status: Former Tobacco user e-Cigarette/Vaping Use: Never Used Second Hand Smoke Exposure: Yes service: No Current occupational status: employed Cognitive needs: No Hearing needs: No Vision needs: Yes Questionnaire PHQ-9 Over the last 2 weeks, how often have you been bothered by any of the following problems? 1. Little interest or pleasure in doing things: not at all 2. Feeling down, depressed, or hopeless: not at all 3. Trouble falling or staying asleep, or sleeping too much: not at all 4. Feeling tired or having little energy: not at all 5. Poor appetite or overeating: not at all 6. Feeling bad about yourself - or that you are a failure or have let yourself or your family down: not at all 7. Trouble concentrating on things, such as reading the newspaper or watching television: not at all 8. Moving or speaking so slowly that other people could have noticed. Or the opposite - being so fidgety or restless that you have been moving around a lot more than usual: not at all 9. Thoughts that you would be better off or of hurting yourself in some way: not at all Total score: 0 Depression Screening Interpretation: Negative 45188 - PHQ-9 Billing: Yes Source: Developed by Drs. Solo Bach, Payton Lundy, Ryan Vallejo and colleagues, with an educational norris from [employer]. Thrive Questionnaire Date Thrive assessed: 05/25/23 I am a: Patient What is your living situation today?: I have a steady place to live Within the past 12 months, did the food you bought not last and you didn't have the money to get more?: Never true Within the past 12 months, did you worry whether your food would run out before you got money to buy more?: Never true Do you have trouble paying for medicines?: No Do you have trouble getting transportation to medical appointments?: No Do you have trouble paying your heating and electricity bill?: No Do you have trouble taking care of your child, family member or friend?: No Do you have trouble with day-to-day activities such as bathing, preparing meals, shopping, managing finances, etc.?: No Are you currently unemployed and looking for a job?: No Are you interested in more education?: No Please select the resources that you would like help with: None Currently or been in a relationship where the following occur: no concerns reported AUDIT C Alcohol Use Questionnaire (AUDIT-C) 1. How often do you have a drink containing alcohol?: Monthly or less 2. How many drinks containing alcohol do you have on a typical day when you are drinking?: 1 or 2 3. How often do you have six or more drinks on one occasion?: Never Total Score: 1 Score Reviewed/Action Taken: Yes DYLAN-7 AMB Questionnaire DYLAN-7 Date DYLAN - 7 assessed: 05/25/23 Feeling nervous, anxious, or on edge: 0 = Not at all Not being able to stop or control worryin = Not at all Worrying too much about different things: 0 = Not at all Trouble relaxin = Not at all Being so restless that it is hard to sit still: 0 = Not at all Becoming easily annoyed or irritable: 0 = Not at all Feeling afraid as if something awful might happen: 0 = Not at all Total DYLAN-7 score (0-4 normal; 5-9 mild; 10-14 moderate; 15-21 severe): 0 Source: Developed by Drs. Solo Bach, Payton Lundy, Ryan Vallejo and colleagues, with an educational norris from [employer]. Review of Systems Const Denies chills, Reports difficulty sleeping (improving), Denies fatigue and Denies fever(s) Eyes Denies change in vision ENT Denies dysphagia, Denies dizziness, Denies otalgia, Reports neck pain (on and off), Denies odynophagia and Denies sore throat Card Denies chest pain, Denies palpitations and Denies dyspnea Resp Denies cough and Denies dyspnea GI Denies abdominal pain, Denies constipation, Denies dysphagia, Denies heartburn, Denies diarrhea, Denies nausea, Denies odynophagia and Denies vomiting Denies dysuria, Denies nocturia and Denies urinary frequency Musc Reports neck pain (on and off) Skin/Breast Denies rash Neuro Details: (+) residual mild numbness and palsy/weakness over the right side of the face - states that this has improved a lot from last month Denies dizziness Endo Denies fatigue and Denies palpitations Physical exam (Primary Care) Vital Signs: Last Vital Signs Pulse 87 05/25/23 10:01 BP 128/80 05/25/23 10:01 Pulse Ox 96 05/25/23 10:01 Oxygen Delivery Method Room Air 05/25/23 10:01 BMI result Body Mass Index 30.5 Tobacco/Smoking Status: Tobacco use Status Tobacco use date assessed 05/25/23 05/25/23 10:10 Patient Tobacco Use Status Former Tobacco user 05/25/23 10:10 e-Cigarette/Vaping Use Never Used 05/25/23 10:10 PHQ-9: PHQ-9 Score PHQ-9: Total score 0 05/25/23 10:10 Depression Screening Interpretation: Negative Thrive Assessment: Date of Thrive Assessment Date Thrive assessed 05/25/23 05/25/23 10:10 Currently or been in a relationship where the following occur: no concerns reported Const General: no acute distress and alert HENMT Other: (+) minimal right facial palsy - improved from last month Ears: TM's normal bilaterally and EAC's normal Throat: Yes posterior oropharynx normal and Yes tonsils normal (no TP congestion) Neck Neck: Yes no lymphadenopathy and Yes supple Resp Auscultation: clear to auscultation bilaterally, no rales and no wheezes Cardio Rate: regular rate Rhythm: regular rhythm Heart sounds: no murmurs GI Palpation (GI): Soft to palpation and nontender Auscultation: normal bowel sounds Skin Rashes: no rashes Extrem General: Yes no clubbing, cyanosis or edema Left upper extremity: shoulder/upper arm Details: tenderness and normal ROM Results Reviewed Results Reviewed: Laboratory Tests 03/24/22 02/11/23 05/01/23 09:04 08:17 08:38 WBC 12.3 H Hgb 15.9 Hct 47.3 Plt Count 259 ESR Sodium Potassium Creatinine Estimated GFR Random Glucose Calcium AST ALT Triglycerides 110 Cholesterol 159 202 LDL Cholesterol, Calc 89 130 HDL Cholesterol 50 05/01/23 05/01/23 08:38 08:38 WBC Hgb Hct Plt Count ESR 21 H Sodium 138 Potassium 3.9 D Creatinine 1.06 Estimated GFR > 60 Random Glucose 185 H Calcium 9.6 AST 23 ALT 83 H Triglycerides Cholesterol LDL Cholesterol, Calc HDL Cholesterol Assessment and Plan Assessment & Plan (1) Pure hypercholesterolemia: Code(s): E78.00 - Pure hypercholesterolemia, unspecified Plan: Results of his labs done a few weeks ago reviewed and discussed with patient - cautioned that his cholesterol levels have increased significantly from last year and his LDL cholesterol is now at 130 mg/dl, which is the highest it has been for him Reinforced low cholesterol diet Will recheck his labs and fasting lipids in 4 months for follow up and cautioned that we may need to start him on cholesterol-lowering medications if he cannot get his cholesterol back under control with diet modification alone (2) Benign essential hypertension: Code(s): I10 - Essential (primary) hypertension Plan: Advised that his blood pressure is currently much better controlled Reinforced low sodium diet - goal is systolic BP of 120 mm or less Continue Lisinopril 5 mg QD Patient is reminded to continue monitoring his blood pressure regularly (3) Impaired fasting glucose: Code(s): R73.01 - Impaired fasting glucose Plan: Advised that his blood sugar has been elevated the last couple of times they were checked Reinforced low calorie/low carb diet Patient admits that he has not been doing any exercise at all lately and has decided to start going back on a routine exercise regimen so he can try to improve on his numbers Will recheck his FBS and also check his HgbA1c in 4 months for follow up / further evaluation (4) Elevated LFTs: Code(s): R79.89 - Other specified abnormal findings of blood chemistry Plan: Cautioned also that his LFTs (ALT) have increased and are elevated on his recent labs - is most likely due to a combination of his weight, cholesterol and recent alcohol intake Advised that exercising and losing weight should help get these back to normal Have also cautioned to avoid drinking too much alcohol in the meantime Will recheck his LFTs in 4 months for follow up (5) 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 - Franklin's palsy Plan: Reassured that his right facial palsy has improved a lot and should continue to gradually and completely resolve over time S/P 7 days of oral Valtrex and Prednisone States that his previous headaches have also improved significantly and he hardly has to take anything for headaches lately (6) Rotator cuff arthropathy of left shoulder: Code(s): M12.812 - Other specific arthropathies, not elsewhere classified, left shoulder Plan: Left shoulder MRI done back in May 2022 revealed mild supraspinatus tendinosis that is unchanged from previous. No measurable rotator cuff tendon tear. There is also moderate acromioclavicular osteoarthritis, slightly progressed from previous, with tiny subacromial spurs. (+) subacromial- subdeltoid bursitis, slightly more prominent when compared to the prior MRI. There is also increasing irregular fraying through the anterior and anteroinferior labrum. (+) small glenohumeral joint effusion noted as well Was referred to physical therapy but he did not complete his sessions as he felt they were too expensive and he is just continuing with the exercise he learned from PT Continue Ibuprofen 800 mg TID PRN and Cyclobenzaprine 5 mg TID PRN (Rx refilled) for now and follow up with orthopedics as scheduled A recently requested repeat left shoulder MRI was denied by his insurance (7) Cervical disc disease: Code(s): M50.90 - Cervical disc disorder, unspecified, unspecified cervical region Plan: Still has on and off numbness and tingling sensation of the right arm related to his cervical disc disease Cervical MRI done in May 2022 revealed (+) mild lordotic reversal centered at C4-C5 with slight retrolisthesis at C6-C7, with multilevel DDD and spondylosis. There are multilevel posterior disc osteophyte complex is asymmetric to the left between C3-C4 and C5-C6 inclusive and disc protrusions at C2-C3, C6-C7 and T2-T3 as discussed above with mild canal stenosis at C6-C7. No spinal cord impingement. Mild spondylitic myelomalacia on the left suspected at C5-C6. (+) multilevel DJD as discussed above with extensive multilevel bilateral bony neural foraminal stenosis, left more than right and left lateral recess stenosis most apparent at C4-C5 and C5-C6 and to a lesser degree at C3-C4 and C6-C7 Recommend physical therapy as well for his neck, especially when his symptoms flare up; patient would like to hold off for now due to concerns about cost and will call for referral as needed for now (8) Allergic rhinitis: Code(s): J30.9 - Allergic rhinitis, unspecified Qualifiers: Allergic rhinitis trigger: unspecified Allergic rhinitis seasonality: unspecified Qualified Code(s): J30.9 - Allergic rhinitis, unspecified Plan: Continue OTC Loratadine 10 mg QD PRN and/or Fluticasone 50 mcg nasal spray QD PRN (9) Insomnia: Code(s): G47.00 - Insomnia, unspecified Qualifiers: Insomnia type: unspecified Qualified Code(s): G47.00 - Insomnia, unspecified Plan: Sleep hygiene reinforced Continue Trazodone 50 mg Q HS PRN (10) Obesity (BMI 30-39.9): Code(s): E66.9 - Obesity, unspecified Plan: Reinforced diet/exercise as tolerated/lose weight - patient has gained some weight over the past few months Plan Follow up in 4 months Orders: Orders Comprehensive [place]. Panel Fast 4 Months E78.00 - Pure hypercholesterolemia, unspecified Hemoglobin A1c 4 Months R73.01 - Impaired fasting glucose Lipid Panel 4 Months E78.00 - Pure hypercholesterolemia, unspecified TSH reflex Free T4 4 Months E78.00 - Pure hypercholesterolemia, unspecified Vitamin D 25-OH Total 4 Months E55.9 - Vitamin D deficiency, unspecified Complete Blood Count Auto Diff 4 Months I10 - Essential (primary) hypertension UA CC w/rflx Micro + Cult 4 Months R30.0 - Dysuria Coding Level of Care Code Est Pt Level 4 (95596) Diagnoses Pure hypercholesterolemia E78.00 Benign essential hypertension I10 Impaired fasting glucose R73.01 Elevated LFTs R79.89 Right-sided Franklin's palsy G51.0 Rotator cuff arthropathy of left shoulder M12.812 Cervical disc disease M50.90 Allergic rhinitis J30.9 Allergic rhinitis trigger: unspecified Allergic rhinitis seasonality: unspecified Insomnia G47.00 Insomnia type: unspecified Obesity (BMI 30-39.9) E66.9
== END 2023-05-25 10:58 | disposition home or self-care (01) ==
PROVIDERS: Visit Provider Internal Medicine
DX: E78.00 Pure hypercholesterolemia, unspecified (principal); I10 Essential (primary) hypertension; R73.01 Impaired fasting glucose; R79.89 Other specified abnormal findings of blood chemistry; G51.0 Bell's palsy; M12.812 Other specific arthropathies, not elsewhere classified, left shoulder; M50.90 Cervical disc disorder, unspecified, unspecified cervical region; J30.9 Allergic rhinitis, unspecified; G47.00 Insomnia, unspecified; E66.9 Obesity, unspecified
CPT/HCPCS: 99214

== ENCOUNTER 2023-09-03 10:01 | Outpatient (AMB) | payer OTHER, SELFPAY ==
--- NOTE | 2023-09-03 10:05 | AM.OFFVISNUR ---
Intake Intake Visit Reasons: Flu Vaccine Allergies hydrocodone Adverse Reaction (Intermediate, Verified 05/25/23 10:24) nausea,dizziness Office Procedures Flu Questionnaire Does the patient have a severe egg allergy?: No Does the patient have severe life threatening allergies?: No Does the patient have a fever or illness today?: No Has the patient ever had Guillain-Clayton Syndrome?: No Has the patient ever had any past reaction to a flu shot?: No Immunizations flu vacc [id number] 6mos up(PF) 60 mcg(15 mcgx4)/0.5 mL IM syringe Performing Provider: Valeriy Ayon MD [facility] Administered by: Shawnee Negro RN on 09/03/23 10:12 Dose Route Admin Location Dispensed Lot Number Expiration Date [employer] 0.5 mL IM Right Deltoid 0.5 mL [id number] 04/03/24 65935-728-13 [employer] VIS Given Date VIS Provided VIS Publication Date 09/03/23 Single Vaccine 21 Eligibility Eligibility Date Funding Source [place] [facility] [place] 09/03/23 Private Coding Assessment & Plan Assessment & Plan Orders: Orders Influenza [id number] Immunization Today Z23 - Encounter for immunization
== END 2023-09-03 10:13 | disposition home or self-care (01) ==
PROVIDERS: PCP Internal Medicine; Visit Provider Internal Medicine
DX: Z23 Encounter for immunization (principal)
CPT/HCPCS: 90471; 90686

== ENCOUNTER 2023-11-20 06:06 | Outpatient (REF) | payer OTHER, SELFPAY ==
[2023-11-20 06:22] LABS: MANUAL DIFF FLAG NO
[2023-11-20 07:30] LABS: Basophils Absolute Auto 0.1 X10*3/uL (0.0-0.2); Eosinophils Absolute Auto 0.2 X10*3/uL (0.0-0.4); Eosinophils Percent Auto 1.8 % (0-4); Hematocrit 44.4 % (42.0-52.0); Hemoglobin 15.4 g/dl (14.0-18.0); Imm Gran Abs Auto 0.17 X10*3/uL (0.00-0.03); Imm Gran Pct Auto 1.7 % (0.0-0.4); Lymphocytes Absolute Auto 2.5 X10*3/uL (1.2-4.9); Lymphocytes Percent Auto 24.9 % (20-40); Mean Corpuscular HGB Conc 34.7 g/dl (31.0-36.0); Mean Corpuscular Hemoglobin 31.8 pg (27.0-33.0); Mean Corpuscular Volume 91.5 fL (80.0-98.0); Mean Platelet Volume 10.5 fL (9.4-12.4); Monocytes Absolute Auto 0.8 X10*3/uL (0.1-1.2); Monocytes Percent Auto 7.8 % (2-11); Neutrophils Absolute Auto 6.4 x10*3/uL (2.0-8.3); Neutrophils Percent Auto 62.8 % (45-73); Platelet Count 339 X10*3/uL (160-400); Red Blood Count 4.85 X10*6/uL (4.60-5.80); Red Cell Distribution Width 11.8 % (11.0-16.0); White Blood Count 10.1 X10*3/uL (4.8-10.8)
[2023-11-20 07:31] LABS: Appearance Urine Clear; Color Urine Yellow; Glucose Urine UA Negative (Negative); Leukocyte Esterase Urine Negative (Negative); Nitrite Urine Negative (Negative); PH 5.5 (5.0-9.0); Urine Blood Negative (Negative); Urine Ketones Negative (Negative); Urine Protein Negative (Neg-Trace)
[2023-11-20 07:40] LABS: Estimated Average Glucose 111 mg/dL; Hemoglobin A1c % 5.5 % (<6.0)
[2023-11-20 08:06] LABS: Alanine Aminotransferase 32 U/L (0-40); Albumin Level 4.1 g/dL (3.5-5.0); Alkaline Phosphatase 78 U/L (39-117); Anion Gap 13 (12-20); Aspartate Amino Transferase 20 U/L (5-37); Bilirubin Total 0.4 mg/dL (0.0-1.0); Blood Urea Nitrogen 19 mg/dL (9-16); Carbon Dioxide 27 mmol/L (22-29); Chloride 104 mmol/L (96-108); Cholesterol 126 mg/dL (<200); Estimated Glomerular Filt Rate > 60; Glucose Fasting 114 mg/dL (60-99); HDL Cholesterol 34 mg/dL (>40); LDL Cholesterol Calculated 75 mg/dL (<100); Sodium 140 mmol/L (135-145); Total Protein 7.2 g/dL (6.5-8.0); Triglycerides 88 mg/dL (<150)
[2023-11-20 08:12] LABS: Prostate Specific Antigen 0.63 ng/mL (<0.05-4.0)
[2023-11-20 08:14] LABS: TSH reflex Free T4 2.32 uIU/mL (0.32-4.0); Vitamin D 25-OH Total 39.9 ng/mL (>30)
== END 2023-11-20 06:07 | disposition home or self-care (01) ==
LOC: HO.LAB 06:06
PROVIDERS: PCP Internal Medicine; Visit Provider Internal Medicine
DX: Z12.5 Encounter for screening for malignant neoplasm of prostate (principal); I10 Essential (primary) hypertension; R73.01 Impaired fasting glucose; E78.00 Pure hypercholesterolemia, unspecified; R30.0 Dysuria; N40.0 Benign prostatic hyperplasia without lower urinary tract symptoms; E55.9 Vitamin D deficiency, unspecified
CPT/HCPCS: 36415; 80053; 80061; 81003; 82306; 83036; 84153; 84443; 85025

== ENCOUNTER 2023-11-26 09:39 | Outpatient (AMB) | payer OTHER, SELFPAY ==
[2023-11-26 09:41] VITALS: BP 126/82; PULSE 94; O2SAT 97; BMI 29.9
--- NOTE | 2023-11-26 09:41 | MHC.PC.OV ---
Vital Signs 11/26/23 09:41 Height 5 ft 8 in Weight 196 lb 8 oz BMI 29.9 BP 126/82 Blood Pressure Location Lt brachial Position Sitting Pulse 94 Pulse Source Pulse Oximeter Pulse Oximetry (%) 97 Oxygen Delivery Method Room Air Intake Visit Reasons: hyperlipidemia, IFG, elevated LFTs Retail [employer] Required: No Accompanied by: Self / Same As Patient Allergies hydrocodone Adverse Reaction (Intermediate, Verified 11/26/23 10:12) nausea,dizziness Medication List - Last Reconciled 11/26/23 by Valeriy Ayon MD cyclobenzaprine 5 mg PO BID PRN ibuprofen 800 mg PO TID PRN lisinopril 5 mg PO DAILY 90 days trazodone 50 mg PO BEDTIME PRN Tobacco use date assessed: 11/26/23 Dental Screening Dental Screen Date: 11/26/23 Did you have a dental visit in the last 12 months?: No Did you have a dental problem in the last 6 months where you did not have access to dental care?: No Was dental information given to patient?: No HPI hyperlipidemia, IFG, elevated LFTs HPI Details Patient comes in today for his follow up visit States that he has not been feeling good lately Relates that his daughter came home one day just over a week ago with a cold and everyone in the house got sick over the next few days - states that they are just now starting to recover from their bouts of respiratory illness States that they all tested negative for COVID States that he's had some sore throat and recurrent cough with some mild chest congestion, and has also been experiencing some myalgias lately but notes that he's had increasing pain over his lower back for the past few days States that the pain is mostly over both sides of his lower back and he does not recall doing anything lately that could have made him hurt or strain his lower back He denies any headaches or dizziness ans denies any fever but his throat still feels slightly sore at present He has also noticed some blood occasionally when he blows his nose lately; coughs up dark to occasionally black mucus at times States that he has been feeling stressed out lately due to his not feeling good overall Denies any chest pains, no increased SOB No nausea/vomiting, no abdominal pain No change in bowel habits noted Had his follow up labs done last week - to discuss his results [facility] Medical History Pure hypercholesterolemia Benign essential hypertension Cervical disc disease Overweight (BMI 25.0-29.9) Allergic rhinitis Occipital headache Achilles tendinitis Rotator cuff arthropathy of left shoulder Surgical History History of colonoscopy Family History Father CVD (cardiovascular disease) Mother Diabetes Brain tumor Social History Housing: House Alcohol intake: current Alcohol intake frequency: holidays/special occasions only Patient Tobacco Use Status: Former Tobacco user e-Cigarette/Vaping Use: Never Used Second Hand Smoke Exposure: Yes service: No Current occupational status: employed Cognitive needs: No Hearing needs: No Vision needs: Yes Questionnaire PHQ-9 Over the last 2 weeks, how often have you been bothered by any of the following problems? 1. Little interest or pleasure in doing things: not at all 2. Feeling down, depressed, or hopeless: not at all 3. Trouble falling or staying asleep, or sleeping too much: not at all 4. Feeling tired or having little energy: not at all 5. Poor appetite or overeating: not at all 6. Feeling bad about yourself - or that you are a failure or have let yourself or your family down: not at all 7. Trouble concentrating on things, such as reading the newspaper or watching television: not at all 8. Moving or speaking so slowly that other people could have noticed. Or the opposite - being so fidgety or restless that you have been moving around a lot more than usual: not at all 9. Thoughts that you would be better off or of hurting yourself in some way: not at all Total score: 0 Depression Screening Interpretation: Negative Depression Screening Done: Yes 69763 - PHQ-9 Billing: Yes Source: Developed by Drs. Solo Bach, Payton Lundy, Ryan Vallejo and colleagues, with an educational norris from [employer]. Thrive Questionnaire Date Thrive assessed: 11/26/23 I am a: Patient What is your living situation today?: I have a steady place to live Within the past 12 months, did the food you bought not last and you didn't have the money to get more?: Never true Within the past 12 months, did you worry whether your food would run out before you got money to buy more?: Never true Do you have trouble paying for medicines?: No Do you have trouble getting transportation to medical appointments?: No Do you have trouble paying your heating and electricity bill?: No Do you have trouble taking care of your child, family member or friend?: No Do you have trouble with day-to-day activities such as bathing, preparing meals, shopping, managing finances, etc.?: No Are you currently unemployed and looking for a job?: No Are you interested in more education?: No Please select the resources that you would like help with: None Currently or been in a relationship where the following occur: no concerns reported THRIVE Score: 0 AUDIT C Alcohol Use Questionnaire (AUDIT-C) 1. How often do you have a drink containing alcohol?: Monthly or less 2. How many drinks containing alcohol do you have on a typical day when you are drinking?: 1 or 2 3. How often do you have six or more drinks on one occasion?: Never Total Score: 1 Score Reviewed/Action Taken: Yes DYLAN-7 AMB Questionnaire DYLAN-7 Date DYLAN - 7 assessed: 11/26/23 Feeling nervous, anxious, or on edge: 0 = Not at all Not being able to stop or control worryin = Not at all Worrying too much about different things: 0 = Not at all Trouble relaxin = Not at all Being so restless that it is hard to sit still: 0 = Not at all Becoming easily annoyed or irritable: 0 = Not at all Feeling afraid as if something awful might happen: 0 = Not at all Total DYLAN-7 score (0-4 normal; 5-9 mild; 10-14 moderate; 15-21 severe): 0 Source: Developed by Drs. Solo Bach, Payton Lundy, Ryan Vallejo and colleagues, with an educational norris from [employer]. Review of Systems Const Reports body aches, Denies chills, Reports fatigue, Denies fever(s) and Denies headache(s) ENT Denies dysphagia, Denies dizziness, Denies otalgia, Denies headache(s), Reports nasal congestion (mild), Reports neck pain (chronic), Denies odynophagia, Denies sinus pain and Reports sore throat (mild) Card Denies chest pain, Denies palpitations and Denies dyspnea Resp Denies chest congestion, Reports cough (recurrent; coughs up minimal phlegm), Denies dyspnea and Denies wheezing GI Denies abdominal pain, Denies constipation, Denies dysphagia, Denies heartburn, Denies diarrhea, Denies nausea, Denies odynophagia and Denies vomiting Denies dysuria, Denies nocturia and Denies urinary frequency Musc Reports back pain (increased lately over the lower lumbar areas bilaterally), Reports myalgias (mild), Reports arthralgias (left shoulder (chronic) but pain has been manageable) and Reports neck pain (chronic) Skin/Breast Denies rash Neuro Denies dizziness and Denies headache(s) Psych Reports anxiety (lately) Endo Reports fatigue and Denies palpitations Aller/Immun Denies wheezing Physical exam (Primary Care) Vital Signs: Last Vital Signs Pulse 94 11/26/23 09:41 BP 126/82 11/26/23 09:41 Pulse Ox 97 11/26/23 09:41 Oxygen Delivery Method Room Air 11/26/23 09:41 BMI result Body Mass Index 29.9 Tobacco/Smoking Status: Tobacco use Status Tobacco use date assessed 11/26/23 11/26/23 09:42 Patient Tobacco Use Status Former Tobacco user 11/26/23 09:42 e-Cigarette/Vaping Use Never Used 11/26/23 09:42 PHQ-9: PHQ-9 Score PHQ-9: Total score 0 11/26/23 09:48 Depression Screening Interpretation: Negative Thrive Assessment: Date of Thrive Assessment Date Thrive assessed 11/26/23 11/26/23 09:42 Currently or been in a relationship where the following occur: no concerns reported Const General: no acute distress, alert and anxious HENMT Ears: TM's normal bilaterally and EAC's normal Face and sinus: No sinus tenderness Throat: Yes abnormal tonsil ((+) mild tonsillar hypertrophy/congestion bilaterally) and Yes posterior oropharynx abnormal (increased erythema of the posterior pharynx) Neck Neck: Yes lymphadenopathy (over the posterior cervical areas bilaterally) Thyroid: Thyroid normal Resp Auscultation: clear to auscultation bilaterally, no rales and no wheezes Cardio Rate: regular rate Rhythm: regular rhythm Heart sounds: no murmurs GI Palpation (GI): Soft to palpation and nontender Auscultation: normal bowel sounds General: Yes no CVA tenderness Back/Spine/Pelvis Back: no CVA tenderness Thoracic/Lumbar Spine: paraspinal muscle tenderness bilaterally in the mid lumbar and in the lower lumbar and No lumbar spinal tenderness Skin Rashes: no rashes Extrem General: Yes no clubbing, cyanosis or edema Results Reviewed Results Reviewed: Laboratory Tests 11/20/23 11/20/23 11/20/23 06:20 06:20 06:20 WBC 10.1 Hgb 15.4 Hct 44.4 Plt Count 339 D Sodium 140 Potassium 4.0 Creatinine 0.97 Estimated GFR > 60 Fasting Glucose 114 H Hemoglobin A1c % 5.5 Calcium 9.0 D AST 20 ALT 32 Triglycerides 88 Cholesterol 126 LDL Cholesterol, Calc 75 HDL Cholesterol 34 L Prostate Specific Ag 0.63 25-OH Vitamin D Total 39.9 TSH 2.32 Urine pH Ur Specific [place] Urine Protein Urine Glucose (UA) Urine Blood Urine Nitrite Ur Leukocyte Esterase 11/20/23 11/20/23 06:25 06:25 WBC Hgb Hct Plt Count Sodium Potassium Creatinine Estimated GFR Fasting Glucose Hemoglobin A1c % Calcium AST ALT Triglycerides Cholesterol LDL Cholesterol, Calc HDL Cholesterol Prostate Specific Ag 25-OH Vitamin D Total TSH Urine pH 5.5 Ur Specific [place] 1.020 Urine Protein Negative Urine Glucose (UA) Negative Urine Blood Negative Urine Nitrite Negative Ur Leukocyte Esterase Negative Assessment and Plan Assessment & Plan (1) Pure hypercholesterolemia: Code(s): E78.00 - Pure hypercholesterolemia, unspecified Plan: Results of his labs done last week reviewed and discussed with patient - advised that his cholesterol levels have improved significantly from previous and that some of his numbers have been cut almost in half from before Reinforced low cholesterol diet Will recheck his labs and fasting lipids in 4 months for follow up (2) Benign essential hypertension: Code(s): I10 - Essential (primary) hypertension Plan: His blood pressure appears much better controlled lately Reinforced low sodium diet - goal is systolic BP of 120 mm or less Continue Lisinopril 5 mg QD Patient is reminded to continue monitoring his blood pressure regularly (3) Impaired fasting glucose: Code(s): R73.01 - Impaired fasting glucose Plan: Advised that his fasting blood sugar is still elevated at 114 mg/dl on his recent labs but his HgbA1c was normal at 5.5% His blood sugar has been elevated over the past few months when they were checked so we ordered a HgbA1c level for further evaluation - advised that this came out normal so there is no concern for diabetes at this time Reinforced low calorie/low carb diet Will recheck his FBS and his HgbA1c in 4 months for follow up (4) Elevated LFTs: Code(s): R79.89 - Other specified abnormal findings of blood chemistry Plan: Advised that his LFTs (ALT) have improved on his recent labs - were most likely due to a combination of his weight, cholesterol and alcohol intake Have again cautioned patient to avoid drinking too much alcohol and also avoid taking a lot of Tylenol-containing medications Will recheck his LFTs in 4 months for follow up (5) Rotator cuff arthropathy of left shoulder: Code(s): M12.812 - Other specific arthropathies, not elsewhere classified, left shoulder Plan: Left shoulder MRI done back in May 2022 revealed mild supraspinatus tendinosis that is unchanged from previous. No measurable rotator cuff tendon tear. There is also moderate acromioclavicular osteoarthritis, slightly progressed from previous, with tiny subacromial spurs. (+) subacromial-subdeltoid bursitis, slightly more prominent when compared to the prior MRI. There is also increasing irregular fraying through the anterior and anteroinferior labrum. (+) small glenohumeral joint effusion noted as well Was referred to physical therapy but he did not complete his sessions as he felt they were too expensive and he is just continuing with the exercise he learned from PT Continue Ibuprofen 800 mg TID PRN and Cyclobenzaprine 5 mg TID PRN (Rx refilled) for now and follow up with orthopedics as scheduled A recently requested repeat left shoulder MRI was denied by his insurance (6) Cervical disc disease: Code(s): M50.90 - Cervical disc disorder, unspecified, unspecified cervical region Plan: Still has on and off numbness and tingling sensation of the right arm related to his cervical disc disease Cervical MRI done in May 2022 revealed (+) mild lordotic reversal centered at C4-C5 with slight retrolisthesis at C6-C7, with multilevel DDD and spondylosis. There are multilevel posterior disc osteophyte complex is asymmetric to the left between C3-C4 and C5-C6 inclusive and disc protrusions at C2-C3, C6-C7 and T2-T3 as discussed above with mild canal stenosis at C6-C7. No spinal cord impingement. Mild spondylitic myelomalacia on the left suspected at C5-C6. (+) multilevel DJD as discussed above with extensive multilevel bilateral bony neural foraminal stenosis, left more than right and left lateral recess stenosis most apparent at C4-C5 and C5-C6 and to a lesser degree at C3-C4 and C6-C7 Recommend physical therapy as well for his neck, especially when his symptoms flare up; patient would like to hold off for now due to concerns about cost and will call for referral as needed for now (7) Allergic rhinitis: Code(s): J30.9 - Allergic rhinitis, unspecified Qualifiers: Allergic rhinitis trigger: unspecified Allergic rhinitis seasonality: unspecified Qualified Code(s): J30.9 - Allergic rhinitis, unspecified Plan: Continue OTC Loratadine 10 mg QD PRN and/or Fluticasone 50 mcg nasal spray QD PRN (8) Respiratory tract congestion with cough: Code(s): R05.8 - Other specified cough Plan: Patient is advised that majority of his recent symptoms that he finds concerning are likely due to some respiratory tract infection He does have some congestion /hypertrophy of his tonsils as well but his lungs sound mostly clear other than occasional faint rhonchi Will send him for some additional labs as well as chest x-rays HELEN for further evaluation (9) Low back pain: Code(s): M54.50 - Low back pain, unspecified Qualifiers: Chronicity: acute Back pain laterality: bilateral Sciatica presence: without sciatica Qualified Code(s): M54.50 - Low back pain, unspecified Plan: Advised that his recent increased lower back pain appear to be more due to muscular strain over the lumbar muscles bilaterally based on his exam but patient relates that he's had problems with recurrent low back pain over the years and has never really had any imaging studies done on his lower back He's had lumbar spine x-rays ordered back in 2011 but he never went and got them done Will send him for lumbar spine x-rays for further evaluation (10) Insomnia: Code(s): G47.00 - Insomnia, unspecified Qualifiers: Insomnia type: unspecified Qualified Code(s): G47.00 - Insomnia, unspecified Plan: Sleep hygiene reinforced Continue Trazodone 50 mg Q HS PRN (11) Overweight (BMI 25.0-29.9): Code(s): E66.3 - Overweight Plan: Reinforced diet/exercise as tolerated/lose weight - he has been able to lose some weight since his last visit Plan Follow up in 4 months Orders: Orders XR lumbar spine 2-3V Today M54.50 - Low back pain, unspecified Monotest Today J35.1 - Hypertrophy of tonsils, R05.8 - Other specified cough, R53.81 - Other malaise, R53.83 - Other fatigue XR chest 2V Today R05.9 - Cough, unspecified SARS-CoV2/FLU/RSV Today J35.1 - Hypertrophy of tonsils, J98.8 - Other specified respiratory disorders, R05.8 - Other specified cough, R53.81 - Other malaise, R53.83 - Other fatigue Erythrocyte Sedimentation Rate Today J35.1 - Hypertrophy of tonsils, R05.8 - Other specified cough, R53.81 - Other malaise, R53.83 - Other fatigue C Reactive Protein Today J35.1 - Hypertrophy of tonsils, R05.8 - Other specified cough, R53.81 - Other malaise, R53.83 - Other fatigue Lipid Panel 4 Months E78.00 - Pure hypercholesterolemia, unspecified Comprehensive [place]. Panel Fast 4 Months E78.00 - Pure hypercholesterolemia, unspecified Hemoglobin A1c 4 Months R73.01 - Impaired fasting glucose Coding Level of Care Code Est Pt Level 4 (11968) Diagnoses Pure hypercholesterolemia E78.00 Benign essential hypertension I10 Impaired fasting glucose R73.01 Elevated LFTs R79.89 Rotator cuff arthropathy of left shoulder M12.812 Cervical disc disease M50.90 Allergic rhinitis, unspecified seasonality, unspecified trigger J30.9 Allergic rhinitis trigger: unspecified Allergic rhinitis seasonality: unspecified Respiratory tract congestion with cough R05.8 Acute bilateral low back pain without sciatica M54.50 Chronicity: acute Back pain laterality: bilateral Sciatica presence: without sciatica Insomnia, unspecified type G47.00 Insomnia type: unspecified Overweight (BMI 25.0-29.9) E66.3
== END 2023-11-26 10:29 | disposition home or self-care (01) ==
PROVIDERS: PCP Internal Medicine; Visit Provider Internal Medicine
DX: E78.00 Pure hypercholesterolemia, unspecified (principal); I10 Essential (primary) hypertension; R73.01 Impaired fasting glucose; R79.89 Other specified abnormal findings of blood chemistry; M12.812 Other specific arthropathies, not elsewhere classified, left shoulder; M50.90 Cervical disc disorder, unspecified, unspecified cervical region; J30.9 Allergic rhinitis, unspecified; R05.8 Other specified cough; M54.50 Low back pain, unspecified; G47.00 Insomnia, unspecified; E66.3 Overweight
CPT/HCPCS: 99214

== ENCOUNTER 2023-11-26 10:35 | Outpatient (REF) | payer OTHER, SELFPAY ==
--- NOTE | ~2023-11-26 | XR_ITS ---
EXAMINATION: XR LUMBOSACRAL SPINE CLINICAL INFORMATION: Low back pain unspecified. Lingering productive cough and chest and lumbar pain. COMPARISON: Chest at 11/27/2023. TECHNIQUE: Three views of the lumbosacral spine. FINDINGS: Moderate degenerative changes in the bilateral sacroiliac joints. Degenerative changes in the imaged lower thoracic spine. Moderate multilevel lumbar spondylosis with loss of disc space height and hypertrophic change. Advanced facet arthritis in the [id number] lumbar spine. XR/XR lumbar spine 2-3V IMPRESSION: 1. Moderate multilevel lumbar spondylosis. 2. Advanced facet arthritis in the [id number] lumbar spine.
--- NOTE | ~2023-11-26 | XR_ITS ---
EXAMINATION: XR chest 2V CLINICAL INFORMATION: Reason for Exam R05.9 - Cough, unspecified COMPARISON: Chest radiograph 07/18/2022 TECHNIQUE: 2 views of the chest FINDINGS: Right lung base hazy opacity concerning for aspiration, atelectasis, or infection. No pneumothorax or pleural effusion. Unchanged cardiomediastinal silhouette. XR/XR chest 2V Impression: Right lung base hazy opacity concerning for aspiration, atelectasis, or infection.
[2023-11-26 11:44] LABS: Influenza A PCR NEGATIVE (Negative); Influenza B PCR NEGATIVE (Negative); Resp Syncy Virus RNA Qual PCR NEGATIVE (Negative); SARS COV2 PCR INHOUSE NEGATIVE (Negative)
[2023-11-26 12:14] LABS: C Reactive Protein 0.13 mg/dL (< or = 0.50)
[2023-11-26 12:18] LABS: Monotest Negative (Negative)
[2023-11-26 12:29] LABS: Erythrocyte Sedimentation Rate 9 MM/HR (0-15)
== END 2023-11-26 10:36 | disposition home or self-care (01) ==
LOC: HO.LAB 10:35
PROVIDERS: PCP Internal Medicine; Visit Provider Internal Medicine
DX: J98.8 Other specified respiratory disorders (principal); R53.81 Other malaise; R53.83 Other fatigue; J35.1 Hypertrophy of tonsils; R05.8 Other specified cough; M54.50 Low back pain, unspecified
CPT/HCPCS: 0241U; 71046; 72100; 85652; 86140; 86308

== ENCOUNTER 2024-03-30 09:47 | Outpatient (AMB) | payer OTHER, SELFPAY ==
--- NOTE | 2024-03-30 09:48 | A.OFFPC_ITS ---
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: No Accompanied by: Self / Same As Patient Allergies hydrocodone Adverse Reaction (Intermediate, Verified 03/30/24 10:16) nausea,dizziness Medication List - Last Reconciled 03/30/24 by Valeriy Ayon MD cyclobenzaprine 5 mg PO BID PRN ibuprofen 800 mg PO TID PRN lisinopril 5 mg PO DAILY 90 days trazodone 50 mg PO BEDTIME PRN Tobacco use date assessed: 11/26/23 Dental Screening Dental Screen Date: 11/26/23 HPI hyperlipidemia, low back pain HPI Details Patient comes in today for his follow up visit He has gained a lot of weight (over 10 pounds) since his last visit; states that he just came back from vacation in [place], which included a trip to [place] with his family States that he feels okay He denies any headaches or dizziness Denies any chest pains, no SOB No nausea/vomiting, no abdominal pain No change in bowel habits noted Feels that his libido has declined a lot over the past year and he would like to know if there is anything he needs to get this checked out States that his shoulder is still bothering him a lot but he has been able to manage his shoulder pain so far He was not able to get his follow up labs done yet - states that he will try to go and get them done tomorrow morning [facility] Medical History (Updated 03/30/24 @ 11:15 by Valeriy Ayon MD) Lumbar degenerative disc disease Pure hypercholesterolemia Benign essential hypertension Cervical disc disease Overweight (BMI 25.0-29.9) Allergic rhinitis Occipital headache Achilles tendinitis Rotator cuff arthropathy of left shoulder Surgical History History of colonoscopy Family History Father CVD (cardiovascular disease) Mother Diabetes Brain tumor Social History Housing: House Alcohol intake: current Alcohol intake frequency: holidays/special occasions only Patient Tobacco Use Status: Former Tobacco user e-Cigarette/Vaping Use: Never Used Second Hand Smoke Exposure: Yes service: No Current occupational status: employed Current occupational exposures/hazards: No Cognitive needs: No Hearing needs: No Vision needs: Yes Questionnaire Thrive Questionnaire Date Thrive assessed: 11/26/23 DYLAN-7 AMB Questionnaire DYLAN-7 Date DYLAN - 7 assessed: 03/30/24 Feeling nervous, anxious, or on edge: 0 = Not at all Not being able to stop or control worryin = Not at all Worrying too much about different things: 0 = Not at all Trouble relaxin = Not at all Being so restless that it is hard to sit still: 0 = Not at all Becoming easily annoyed or irritable: 0 = Not at all Feeling afraid as if something awful might happen: 0 = Not at all Total DYLAN-7 score (0-4 normal; 5-9 mild; 10-14 moderate; 15-21 severe): 0 Source: Developed by Drs. Solo Bach, Payton Lundy, Ryan Vallejo and colleagues, with an educational norris from [employer]. Review of Systems Const Denies chills, Reports fatigue, Denies fever(s) and Denies headache(s) ENT Denies dysphagia, Denies dizziness, Denies otalgia, Denies headache(s), Reports neck pain (chronic), Denies odynophagia and Denies sore throat Card Denies chest pain, Denies palpitations and Denies dyspnea Resp Denies chest congestion, Denies dyspnea and Denies wheezing GI Denies abdominal pain, Denies constipation, Denies dysphagia, Denies heartburn, Denies diarrhea, Denies nausea, Denies odynophagia and Denies vomiting Reports change in libido (feels that this has decreased for him lately), Denies dysuria, Denies nocturia and Denies urinary frequency Musc Reports back pain (increased lately over the lower lumbar areas bilaterally), Reports arthralgias (left shoulder (chronic) but pain has been manageable), Denies muscle weakness and Reports neck pain (chronic) Skin/Breast Denies rash Neuro Denies dizziness and Denies headache(s) Psych Reports anxiety and Reports change in libido (feels that this has decreased for him lately) Endo Reports change in libido (feels that this has decreased for him lately), Reports fatigue and Denies palpitations Aller/Immun Denies wheezing Physical exam (Primary Care) Vital Signs: Last Vital Signs Pulse 81 03/30/24 09:49 BP 146/92 H 03/30/24 09:49 Pulse Ox 96 03/30/24 09:49 Oxygen Delivery Method Room Air 03/30/24 09:49 BMI result Body Mass Index 31.9 Tobacco/Smoking Status: Tobacco use Status Tobacco use date assessed 11/26/23 03/30/24 09:54 Patient Tobacco Use Status Former Tobacco user 03/30/24 09:54 e-Cigarette/Vaping Use Never Used 03/30/24 09:54 Thrive Assessment: Date of Thrive Assessment Date Thrive assessed 11/26/23 03/30/24 09:54 Const General: no acute distress and alert HENMT Ears: TM's normal bilaterally and EAC's normal Throat: Yes posterior oropharynx normal and Yes tonsils normal Neck Neck: Yes no lymphadenopathy Thyroid: Thyroid normal Resp Auscultation: clear to auscultation bilaterally, no rales and no wheezes Cardio Rate: regular rate Rhythm: regular rhythm Heart sounds: no murmurs GI Palpation (GI): Soft to palpation and nontender Auscultation: normal bowel sounds General: Yes no CVA tenderness Back/Spine/Pelvis Back: no CVA tenderness Cervical Spine: Cervical spine tenderness Thoracic/Lumbar Spine: paraspinal muscle tenderness bilaterally in the mid lumbar and in the lower lumbar and No lumbar spinal tenderness Skin Rashes: no rashes Extrem General: Yes no clubbing, cyanosis or edema Assessment and Plan Assessment & Plan (1) Pure hypercholesterolemia: Code(s): E78.00 - Pure hypercholesterolemia, unspecified Plan: He was not able to get his previously ordered labs done prior to his visit today - states that he will try to get these done tomorrow morning Reinforced low cholesterol diet (2) Benign essential hypertension: Code(s): I10 - Essential (primary) hypertension Plan: His blood pressure appears high again today, likely because he has gained a lot of weight since his last visit Reinforced low sodium diet - goal is systolic BP of 120 mm or less Continue Lisinopril 5 mg QD for now - advised that his BP should improve if he can lose at least some of the weight that he gained recently Patient is reminded to continue monitoring his blood pressure regularly (3) Impaired fasting glucose: Code(s): R73.01 - Impaired fasting glucose Plan: He is reminded that his fasting blood sugar was still elevated at 114 mg/dl on his previous labs but his HgbA1c was normal at 5.5% Reinforced low calorie/low carb diet Will recheck his FBS and his HgbA1c HELEN for follow up (4) Elevated LFTs: Code(s): R79.89 - Other specified abnormal findings of blood chemistry Plan: His LFTs (ALT) have improved and were back to normal on his previous labs - were most likely due to a combination of his weight, cholesterol and alcohol intake Have again cautioned patient to avoid drinking too much alcohol and also avoid taking a lot of Tylenol-containing medications Will recheck his LFTs HELEN for follow up (5) Allergic rhinitis: Code(s): J30.9 - Allergic rhinitis, unspecified Qualifiers: Allergic rhinitis trigger: unspecified Allergic rhinitis seasonality: unspecified Qualified Code(s): J30.9 - Allergic rhinitis, unspecified Plan: Continue OTC Loratadine 10 mg QD PRN and/or Fluticasone 50 mcg nasal spray QD PRN (6) Rotator cuff arthropathy of left shoulder: Code(s): M12.812 - Other specific arthropathies, not elsewhere classified, left shoulder Plan: Left shoulder MRI done back in May 2022 revealed mild supraspinatus tendinosis that is unchanged from previous with no measurable rotator cuff tendon tear. There is also moderate acromioclavicular osteoarthritis, slightly progressed from previous, with tiny subacromial spurs and (+) subacromial- subdeltoid bursitis, slightly more prominent when compared to the prior MRI. There is also increasing irregular fraying through the anterior and anteroinferior labrum, with (+) small glenohumeral joint effusion noted as well He was referred to physical therapy but he did not complete his sessions as he felt they were too expensive and he is just continuing with the exercise he learned from PT Repeat left shoulder MRI was denied by his insurance Continue Ibuprofen 800 mg TID PRN and Cyclobenzaprine 5 mg TID PRN Follow up with orthopedics as scheduled (7) Cervical disc disease: Code(s): M50.90 - Cervical disc disorder, unspecified, unspecified cervical region Plan: Patient still has on and off numbness and tingling sensation of the right arm related to his cervical disc disease Cervical MRI done in May 2022 revealed (+) mild lordotic reversal centered at C4-C5 with slight retrolisthesis at C6-C7, with multilevel DDD and spondylosis. There are multilevel posterior disc osteophyte complex is asymmetric to the left between C3-C4 and C5-C6 inclusive and disc protrusions at C2-C3, C6-C7 and T2-T3 as discussed above with mild canal stenosis at C6-C7. No spinal cord impingement. Mild spondylitic myelomalacia on the left suspected at C5-C6. (+) multilevel DJD as discussed above with extensive multilevel bilateral bony neural foraminal stenosis, left more than right and left lateral recess stenosis most apparent at C4-C5 and C5-C6 and to a lesser degree at C3-C4 and C6-C7 Have recommend physical therapy for his neck, especially when his symptoms flare up; patient would like to hold off for now due to concerns about cost and will call for referral as needed (8) Lumbar degenerative disc disease: Code(s): M51.36 - Other intervertebral disc degeneration, lumbar region Plan: Reinforced activity and weight-lifting restrictions Lumbar spine x-rays done in November 2023 revealed (+) moderate multilevel lumbar spondylosis with advanced facet arthritis in the [id number] lumbar spine (9) Low libido: Code(s): R68.82 - Decreased libido Plan: Patient is advised that this is likely multifactorial and factors may include his weight and his recent weight gain, inconsistent work out and physical acti vity/exercise, as well as his high blood pressure and medication(s) as well as high cholesterol Advised that his anxiety may also be contributing to this Will include a serum testosterone level as well as repeat CBC and TSH with his labs for further evaluation (10) Insomnia: Code(s): G47.00 - Insomnia, unspecified Qualifiers: Insomnia type: unspecified Qualified Code(s): G47.00 - Insomnia, unspecified Plan: Sleep hygiene reinforced Continue Trazodone 50 mg Q HS PRN (11) Obesity (BMI 30-39.9): Code(s): E66.9 - Obesity, unspecified Plan: Reinforced diet/exercise as tolerated/lose weight - he has gained over 10 to 12 pounds since his last visit Plan Follow up in 4 months Orders: Orders Testosterone, Free/Total Today R79.89 - Other specified abnormal findings of blood chemistry UA CC w/rflx Micro + Cult Today R30.0 - Dysuria Vitamin D 25-OH Total Today E55.9 - Vitamin D deficiency, unspecified TSH reflex Free T4 Today E78.00 - Pure hypercholesterolemia, unspecified Complete Blood Count Auto Diff Today D64.9 - Anemia, unspecified Coding Level of Care Code Est Pt Level 4 (15616) Diagnoses Pure hypercholesterolemia E78.00 Benign essential hypertension I10 Impaired fasting glucose R73.01 Elevated LFTs R79.89 Allergic rhinitis, unspecified seasonality, unspecified trigger J30.9 Allergic rhinitis trigger: unspecified Allergic rhinitis seasonality: unspecified Rotator cuff arthropathy of left shoulder M12.812 Cervical disc disease M50.90 Lumbar degenerative disc disease M51.36 Low libido R68.82 Insomnia, unspecified type G47.00 Insomnia type: unspecified Obesity (BMI 30-39.9) E66.9
[2024-03-30 09:49] VITALS: BP 146/92; PULSE 81; O2SAT 96; BMI 31.9
== END 2024-03-30 10:50 | disposition home or self-care (01) ==
PROVIDERS: PCP Internal Medicine; Visit Provider Internal Medicine
DX: E78.00 Pure hypercholesterolemia, unspecified (principal); I10 Essential (primary) hypertension; R73.01 Impaired fasting glucose; R79.89 Other specified abnormal findings of blood chemistry; J30.9 Allergic rhinitis, unspecified; M12.812 Other specific arthropathies, not elsewhere classified, left shoulder; M50.90 Cervical disc disorder, unspecified, unspecified cervical region; E66.9 Obesity, unspecified; Z68.31 Body mass index [BMI] 31.0-31.9, adult; M51.36 Other intervertebral disc degeneration, lumbar region; R68.82 Decreased libido; G47.00 Insomnia, unspecified
CPT/HCPCS: 99214

== ENCOUNTER 2024-03-31 07:44 | Outpatient (REF) | payer OTHER, SELFPAY ==
[2024-03-31 08:07] LABS: MANUAL DIFF FLAG NO
[2024-03-31 08:19] LABS: Basophils Absolute Auto 0.1 X10*3/uL (0.0-0.2); Basophils Percent Auto 0.8 % (0-2); Eosinophils Absolute Auto 0.2 X10*3/uL (0.0-0.4); Hematocrit 46.3 % (42.0-52.0); Hemoglobin 16.2 g/dl (14.0-18.0); Imm Gran Abs Auto 0.04 X10*3/uL (0.00-0.03); Imm Gran Pct Auto 0.5 % (0.0-0.4); Lymphocytes Absolute Auto 2.3 X10*3/uL (1.2-4.9); Lymphocytes Percent Auto 30.2 % (20-40); Mean Corpuscular Hemoglobin 31.9 pg (27.0-33.0); Mean Corpuscular Volume 91.1 fL (80.0-98.0); Mean Platelet Volume 10.8 fL (9.4-12.4); Monocytes Absolute Auto 0.6 X10*3/uL (0.1-1.2); Neutrophils Absolute Auto 4.4 x10*3/uL (2.0-8.3); Neutrophils Percent Auto 57.5 % (45-73); Platelet Count 213 X10*3/uL (160-400); Red Blood Count 5.08 X10*6/uL (4.60-5.80); Red Cell Distribution Width 12.4 % (11.0-16.0); White Blood Count 7.7 X10*3/uL (4.8-10.8)
[2024-03-31 08:40] LABS: Estimated Average Glucose 123 mg/dL; Hemoglobin A1c % 5.9 % (<6.0)
[2024-03-31 08:58] LABS: Alanine Aminotransferase 63 U/L (0-40); Albumin Level 4.3 g/dL (3.5-5.0); Alkaline Phosphatase 75 U/L (39-117); Anion Gap 13 (12-20); Aspartate Amino Transferase 40 U/L (5-37); Bilirubin Total 1.4 mg/dL (0.0-1.0); Blood Urea Nitrogen 18 mg/dL (9-16); Calcium 8.9 mg/dL (8.4-10.2); Carbon Dioxide 26 mmol/L (22-29); Chloride 105 mmol/L (96-108); Cholesterol 189 mg/dL (<200); Estimated Glomerular Filt Rate > 60; Glucose Fasting 120 mg/dL (60-99); HDL Cholesterol 42 mg/dL (>40); LDL Cholesterol Calculated 106 mg/dL (<100); Sodium 140 mmol/L (135-145); Triglycerides 209 mg/dL (<150)
[2024-03-31 09:20] LABS: TSH reflex Free T4 2.17 uIU/mL (0.32-4.0); Vitamin D 25-OH Total 43.2 ng/mL (>30)
[2024-03-31 10:01] LABS: Appearance Urine Clear; Color Urine Yellow; Glucose Urine UA Negative (Negative); Leukocyte Esterase Urine Negative (Negative); Nitrite Urine Negative (Negative); PH 5.5 (5.0-9.0); Specific Gravity - Urine >= 1.030 (1.005-1.025); Urine Blood Negative (Negative); Urine Ketones Negative (Negative); Urine Protein Trace mg/dL (Neg-Trace)
[2024-04-05 12:48] LABS: Testosterone, Free 35.1 pg/mL (35.0-155.0); Testosterone, Total 203 ng/dL (250-1100)
== END 2024-03-31 07:45 | disposition home or self-care (01) ==
LOC: HO.LAB 07:44
PROVIDERS: PCP Internal Medicine; Visit Provider Internal Medicine
DX: E55.9 Vitamin D deficiency, unspecified (principal); E78.00 Pure hypercholesterolemia, unspecified; R79.89 Other specified abnormal findings of blood chemistry; R30.0 Dysuria; R73.01 Impaired fasting glucose; D64.9 Anemia, unspecified
CPT/HCPCS: 36415; 80053; 80061; 81003; 82306; 83036; 84402; 84403; 84443; 85025

== ENCOUNTER 2024-05-02 13:21 | Outpatient (REF) | payer OTHER, SELFPAY ==
--- NOTE | ~2024-05-02 | XR_ITS ---
EXAMINATION: XR CERVICAL SPINE CLINICAL INFORMATION: Neck and left shoulder pain. COMPARISON: MRI cervical spine dated 05/24/2022; cervical spine radiographs dated 03/24/2022. TECHNIQUE: Frontal, odontoid, bilateral oblique and lateral views of the cervical spine were obtained. FINDINGS: Vertebral body heights and alignment are normal. At C3-C4, there is mild disc space narrowing. At C4-C5 through C6-C7, there is moderately severe disc space narrowing, with endplate arthropathy. No acute fracture or spondylolisthesis is seen. The posterior elements are intact. There is left neural foraminal narrowing at C3-C4, and bilateral neural foraminal narrowing is seen at C4-C5 through C6-C7. The dens is intact. No prevertebral soft tissue swelling is seen. XR/XR cervical spine 5V IMPRESSION: 1. There is mild degenerative disc disease at C3-C4, and moderately severe degenerative disc disease extends from C4-C5 through C6-C7. 2. There is left neural foraminal narrowing at C3-C4, and bilateral neural foraminal narrowing is seen at C4-C5 through C6-C7.
--- NOTE | ~2024-05-02 | XR_ITS ---
EXAMINATION: XR SHOULDER, LEFT CLINICAL INFORMATION: Pain left shoulder COMPARISON: X-ray left shoulder February 2023 TECHNIQUE: AP external rotation, Grashey, scapular Y, and axillary views of the left shoulder. FINDINGS: The bones and soft tissues are normal. No fracture. Glenohumeral and acromioclavicular alignment is anatomic with normal joint space. No abnormal soft tissue calcifications. XR/XR shoulder LT min 2V IMPRESSION: Normal left shoulder.
== END 2024-05-02 13:22 | disposition home or self-care (01) ==
LOC: HO.HMGCX 13:21
PROVIDERS: PCP Internal Medicine; Visit Provider Internal Medicine
DX: M25.512 Pain in left shoulder (principal)
CPT/HCPCS: 72050; 73030

== ENCOUNTER 2024-08-03 09:53 | Outpatient (AMB) | payer OTHER, SELFPAY ==
[2024-08-03 09:55] VITALS: BP 130/86; PULSE 100; O2SAT 98; BMI 32.9
--- NOTE | 2024-08-03 09:55 | MHC.PC.OV ---
Vital Signs 08/03/24 09:55 Height 5 ft 8 in Weight 216 lb 6 oz BMI 32.9 BP 130/86 Blood Pressure Location Lt brachial Position Sitting Pulse 100 Pulse Source Pulse Oximeter Pulse Oximetry (%) 98 Oxygen Delivery Method Room Air Intake Visit Reasons: HTN, OA, dyslipidemia Store Operations Specialist Required: No Accompanied by: Self / Same As Patient Allergies hydrocodone Adverse Reaction (Intermediate, Verified 08/03/24 10:26) nausea,dizziness Medication List - Last Reconciled 08/03/24 by Valeriy Ayon MD cyclobenzaprine 5 mg PO BID PRN ibuprofen 800 mg PO TID PRN lisinopril 5 mg PO DAILY 90 days trazodone 50 mg PO BEDTIME PRN Tobacco use date assessed: 08/03/24 Dental Screening Dental Screen Date: 08/03/24 Did you have a dental visit in the last 12 months?: No Did you have a dental problem in the last 6 months where you did not have access to dental care?: No Was dental information given to patient?: Patient has dentist HPI HTN, OA, dyslipidemia HPI Details Patient comes in today for his follow up visit States that his left shoulder is starting to bother him again, with increasing pain and stiffness lately States that he feels okay otherwise He denies any headaches or dizziness Denies any chest pains, no SOB No nausea/vomiting, no abdominal pain No change in bowel habits noted He would like to know how he did on his labs done a few months ago Would also like to get his flu shot today [facility] Medical History Lumbar degenerative disc disease Pure hypercholesterolemia Benign essential hypertension Cervical disc disease Overweight (BMI 25.0-29.9) Allergic rhinitis Occipital headache Achilles tendinitis Rotator cuff arthropathy of left shoulder Surgical History History of colonoscopy Family History Father CVD (cardiovascular disease) Mother Diabetes Brain tumor Social History Housing: House Alcohol intake: current Alcohol intake frequency: holidays/special occasions only Patient Tobacco Use Status: Former Tobacco user e-Cigarette/Vaping Use: Never Used Second Hand Smoke Exposure: Yes service: No Current occupational status: employed Current occupational exposures/hazards: No Cognitive needs: No Hearing needs: No Vision needs: Yes Questionnaire PHQ-9 Over the last 2 weeks, how often have you been bothered by any of the following problems? 1. Little interest or pleasure in doing things: not at all 2. Feeling down, depressed, or hopeless: not at all 3. Trouble falling or staying asleep, or sleeping too much: not at all 4. Feeling tired or having little energy: not at all 5. Poor appetite or overeating: not at all 6. Feeling bad about yourself - or that you are a failure or have let yourself or your family down: not at all 7. Trouble concentrating on things, such as reading the newspaper or watching television: not at all 8. Moving or speaking so slowly that other people could have noticed. Or the opposite - being so fidgety or restless that you have been moving around a lot more than usual: not at all 9. Thoughts that you would be better off or of hurting yourself in some way: not at all Total score: 0 Depression Screening Interpretation: Negative Depression Screening Done: Yes [id number] - PHQ-9 Billing: Yes Source: Developed by Drs. Solo Bach, Payton Lundy, Ryan Vallejo and colleagues, with an educational norris from [employer]. Thrive Questionnaire Date Thrive assessed: 08/03/24 I am a: Patient What is your living situation today?: I have a steady place to live Within the past 12 months, did the food you bought not last and you didn't have the money to get more?: Never true Within the past 12 months, did you worry whether your food would run out before you got money to buy more?: Never true Do you have trouble paying for medicines?: No Do you have trouble getting transportation to medical appointments?: No Do you have trouble paying your heating and electricity bill?: No Do you have trouble taking care of your child, family member or friend?: No Do you have trouble with day-to-day activities such as bathing, preparing meals, shopping, managing finances, etc.?: No Are you currently unemployed and looking for a job?: No Are you interested in more education?: No Please select the resources that you would like help with: None Currently or been in a relationship where the following occur: No concerns reported THRIVE Score: 0 AUDIT C Alcohol Use Questionnaire (AUDIT-C) 1. How often do you have a drink containing alcohol?: Monthly or less 2. How many drinks containing alcohol do you have on a typical day when you are drinking?: 1 or 2 3. How often do you have six or more drinks on one occasion?: Never Total Score: 1 Score Reviewed/Action Taken: Yes DYLAN-7 AMB Questionnaire DYLAN-7 Date DYLAN - 7 assessed: 08/03/24 Feeling nervous, anxious, or on edge: 0 = Not at all Not being able to stop or control worryin = Not at all Worrying too much about different things: 0 = Not at all Trouble relaxin = Not at all Being so restless that it is hard to sit still: 0 = Not at all Becoming easily annoyed or irritable: 0 = Not at all Feeling afraid as if something awful might happen: 0 = Not at all Total DYLAN-7 score (0-4 normal; 5-9 mild; 10-14 moderate; 15-21 severe): 0 Source: Developed by Drs. Solo Bach, Payton Lundy, Ryan Vallejo and colleagues, with an educational norris from [employer]. Review of Systems Const Denies chills, Denies fatigue, Denies fever(s) and Denies headache(s) ENT Denies dysphagia, Denies dizziness, Denies otalgia, Denies headache(s), Reports neck pain (chronic), Denies odynophagia and Denies sore throat Card Denies chest pain, Denies palpitations and Denies dyspnea Resp Denies chest congestion, Denies cough and Denies dyspnea GI Denies abdominal pain, Denies constipation, Denies dysphagia, Denies heartburn, Denies diarrhea, Denies nausea, Denies odynophagia and Denies vomiting Denies dysuria, Denies nocturia and Denies urinary frequency Musc Reports back pain (increased lately over the lower lumbar areas bilaterally), Reports arthralgias (left shoulder (chronic) but pain has been increasing lately), Denies muscle weakness, Reports neck pain (chronic) and Reports stiffness (in the left shoulder) Skin/Breast Denies rash Neuro Denies dizziness and Denies headache(s) Psych Reports anxiety Endo Denies fatigue and Denies palpitations Physical exam (Primary Care) Vital Signs: Last Vital Signs Pulse 100 08/03/24 09:55 BP 130/86 08/03/24 09:55 Pulse Ox 98 08/03/24 09:55 Oxygen Delivery Method Room Air 08/03/24 09:55 BMI result Body Mass Index 32.9 Tobacco/Smoking Status: Tobacco use Status Tobacco use date assessed 08/03/24 08/03/24 09:56 Patient Tobacco Use Status Former Tobacco user 08/03/24 09:56 e-Cigarette/Vaping Use Never Used 08/03/24 09:56 PHQ-9: PHQ-9 Score PHQ-9: Total score 0 08/03/24 10:37 Depression Screening Interpretation: Negative Thrive Assessment: Date of Thrive Assessment Date Thrive assessed 08/03/24 08/03/24 09:56 Currently or been in a relationship where the following occur: No concerns reported Const General: no acute distress and alert HENMT Ears: TM's normal bilaterally and EAC's normal Throat: Yes posterior oropharynx normal and Yes tonsils normal Neck Neck: Yes no lymphadenopathy Thyroid: Thyroid normal Resp Auscultation: clear to auscultation bilaterally, no rales and no wheezes Cardio Rate: regular rate Rhythm: regular rhythm Heart sounds: no murmurs GI Palpation (GI): Soft to palpation and nontender Auscultation: normal bowel sounds General: Yes no CVA tenderness Back/Spine/Pelvis Back: no CVA tenderness Cervical Spine: Cervical spine tenderness Thoracic/Lumbar Spine: paraspinal muscle tenderness bilaterally in the mid lumbar and in the lower lumbar and No lumbar spinal tenderness Skin Rashes: no rashes Extrem General: Yes no clubbing, cyanosis or edema Left upper extremity: shoulder/upper arm Details: tenderness Location: of the A-C joint Office Procedures Flu Questionnaire Does the patient have a severe egg allergy?: No Does the patient have severe life threatening allergies?: No Does the patient have a fever or illness today?: No Has the patient ever had Guillain-Steedman Syndrome?: No Has the patient ever had any past reaction to a flu shot?: No Immunizations Fluarix Triv [id number] (PF) 45 mcg (15 mcg x 3)/0.5 mL IM syringe Performing Provider: Valeriy Ayon MD [facility] Administered by: NELLIE Stark on 08/03/24 10:08 Dose Route Admin Location Dispensed Lot Number Expiration Date NDC Infectious Waste Technician 0.5 mL IM Right Deltoid 0.5 mL [id number] 04/03/25 [id number] Quigo VIS Given Date VIS Provided VIS Publication Date 08/03/24 Single Vaccine 21 Eligibility Eligibility Date Funding Source Not [facility] Eligible 08/03/24 Private Results Reviewed Results Reviewed: Laboratory Tests 11/20/23 03/31/24 03/31/24 06:20 08:05 08:06 WBC 7.7 Hgb 16.2 Hct 46.3 Plt Count 213 D Sodium 140 Potassium 4.0 Creatinine 0.94 Estimated GFR > 60 Fasting Glucose 120 H Hemoglobin A1c % 5.9 Calcium 8.9 AST 40 H ALT 63 H Triglycerides 88 209 H Cholesterol 126 189 LDL Cholesterol, Calc 75 106 H HDL Cholesterol 42 25-OH Vitamin D Total 43.2 TSH 2.17 Total Testosterone 203 L Fr Testosterone Dialys 35.1 Ur Specific Beaman >= 1.030 H Urine Protein Trace Urine Glucose (UA) Negative Urine Blood Negative Urine Nitrite Negative Ur Leukocyte Esterase Negative \ Coding Level of Care Code Est Pt Level 4 (51515) Diagnoses Pure hypercholesterolemia E78.00 Benign essential hypertension I10 Impaired fasting glucose R73.01 Elevated LFTs R79.89 Allergic rhinitis, unspecified seasonality, unspecified trigger J30.9 Allergic rhinitis seasonality: unspecified Allergic rhinitis trigger: unspecified Rotator cuff arthropathy of left shoulder M12.812 Cervical disc disease M50.90 Degeneration of intervertebral disc of lumbar region with discogenic back pain M51.360 Disc-related pain type: discogenic back pain only Insomnia, unspecified type G47.00 Insomnia type: unspecified Obesity (BMI 30-39.9) E66.9 Assessment & Plan Assessment & Plan (1) Pure hypercholesterolemia: Code(s): E78.00 - Pure hypercholesterolemia, unspecified Category: Medical Plan: Results of his labs done a few months ago reviewed and discussed with patient - he is cautioned that his cholesterol levels have all increased from earlier this year, especially his TG level which is now at 209 mg/dl Reinforced low cholesterol diet Will recheck his fasting lipids and labs in 4 months for follow up (2) Benign essential hypertension: Code(s): I10 - Essential (primary) hypertension Category: Medical Plan: Reinforced low sodium diet - goal is systolic BP of 120 mm or less Continue Lisinopril 5 mg QD for now - he is advised that his BP should improve if he can lose at least some of the weight that he gained over the past few months Patient is reminded to continue monitoring his blood pressure regularly (3) Impaired fasting glucose: Code(s): R73.01 - Impaired fasting glucose Category: Medical Plan: His FBS was at 120 mg/dl and his HgbA1c was at 5.9% (HgbA1c was previously at 5.5%) Reinforced low calorie/low carb diet Will recheck his FBS and his HgbA1c in 4 months for follow up (4) Elevated LFTs: Code(s): R79.89 - Other specified abnormal findings of blood chemistry Category: Medical Plan: Patient is cautioned that his HgbA1c has increased significantly from earlier this year, likely because of his weight gain Have also again cautioned patient to avoid drinking too much alcohol and also avoid taking a lot of Tylenol-containing medications; advised also that losing weight should help get his LFTs back to normal Will recheck his LFTs in 4 months for follow up (5) Allergic rhinitis: Code(s): J30.9 - Allergic rhinitis, unspecified Category: Medical Qualifiers: Allergic rhinitis seasonality: unspecified Allergic rhinitis trigger: unspecified Qualified Code(s): J30.9 - Allergic rhinitis, unspecified Plan: Continue OTC Loratadine 10 mg QD PRN and/or Fluticasone 50 mcg nasal spray QD PRN (6) Rotator cuff arthropathy of left shoulder: Code(s): M12.812 - Other specific arthropathies, not elsewhere classified, left shoulder Category: Medical Plan: Left shoulder MRI done back in May 2022 revealed (+) mild supraspinatus tendinosis that is unchanged from previous with no measurable rotator cuff tendon tear. There is also moderate acromioclavicular osteoarthritis, slightly progressed from previous, with tiny subacromial spurs and (+) subacromial-subdeltoid bursitis, slightly more prominent when compared to the prior MRI. There is also increasing irregular fraying through the anterior and anteroinferior labrum, with (+) small glenohumeral joint effusion noted as well He was referred to physical therapy but he did not complete his sessions as he felt they were too expensive and he is just continuing with the exercise he learned from PT on his own whenever he can Repeat left shoulder MRI was denied by his insurance Continue Ibuprofen 800 mg TID PRN and Cyclobenzaprine 5 mg TID PRN Due to his increasing shoulder symptoms lately, will refer him back to orthopedics for further recommendations and management (7) Cervical disc disease: Code(s): M50.90 - Cervical disc disorder, unspecified, unspecified cervical region Category: Medical Plan: Patient still has on and off numbness and tingling sensation of the right arm related to his cervical disc disease Cervical MRI done in May 2022 revealed (+) mild lordotic reversal centered at C4-C5 with slight retrolisthesis at C6-C7, with multilevel DDD and spondylosis. There are multilevel posterior disc osteophyte complex is asymmetric to the left between C3-C4 and C5-C6 inclusive and disc protrusions at C2-C3, C6-C7 and T2-T3 as discussed above with mild canal stenosis at C6-C7. No spinal cord impingement. Mild spondylitic myelomalacia on the left suspected at C5-C6. (+) multilevel DJD as discussed above with extensive multilevel bilateral bony neural foraminal stenosis, left more than right and left lateral recess stenosis most apparent at C4-C5 and C5-C6 and to a lesser degree at C3-C4 and C6-C7 Have recommend physical therapy for his neck, especially when his symptoms flare up; patient would like to hold off for now due to concerns about cost and will call for referral as needed (8) Lumbar degenerative disc disease: Code(s): M51.36 - Other intervertebral disc degeneration, lumbar region Category: Medical Qualifiers: Disc-related pain type: discogenic back pain only Qualified Code(s): M51.360 - Other intervertebral disc degeneration, lumbar region with discogenic back pain only Plan: Reinforced activity and weight-lifting restrictions Lumbar spine x-rays done in November 2023 revealed (+) moderate multilevel lumbar spondylosis with advanced facet arthritis in the [id number] lumbar spine Continue Ibuprofen 800 mg TID PRN and Cyclobenzaprine 5 mg TID PRN (9) Insomnia: Code(s): G47.00 - Insomnia, unspecified Category: Medical Qualifiers: Insomnia type: unspecified Qualified Code(s): G47.00 - Insomnia, unspecified Plan: Sleep hygiene reinforced Continue Trazodone 50 mg Q HS PRN (10) Obesity (BMI 30-39.9): Code(s): E66.9 - Obesity, unspecified Category: Medical Plan: Reinforced diet/exercise as tolerated/lose weight - he has gained some more weight since his last visit Plan As requested. flu vaccine given to patient today Follow up in 4 months Orders: Orders Influenza [id number] Immunization 08/03/24 Z23 - Encounter for immunization Complete Blood Count Auto Diff 4 Months D64.9 - Anemia, unspecified Comprehensive [place]. Panel Fast 4 Months E78.00 - Pure hypercholesterolemia, unspecified UA CC w/rflx Micro + Cult 4 Months R30.0 - Dysuria TSH reflex Free T4 4 Months E78.00 - Pure hypercholesterolemia, unspecified Hemoglobin A1c 4 Months R73.01 - Impaired fasting glucose Vitamin D 25-OH Total 4 Months E55.9 - Vitamin D deficiency, unspecified Lipid Panel 4 Months E78.00 - Pure hypercholesterolemia, unspecified Referrals Orthopedics Referral M12.812 - Other specific arthropathies, not elsewhere classified, left shoulder
== END 2024-08-03 10:52 | disposition home or self-care (01) ==
LOC: HO.HMCH 09:54
PROVIDERS: PCP Internal Medicine; Visit Provider Internal Medicine
DX: E78.00 Pure hypercholesterolemia, unspecified (principal); I10 Essential (primary) hypertension; R73.01 Impaired fasting glucose; R79.89 Other specified abnormal findings of blood chemistry; J30.9 Allergic rhinitis, unspecified; M12.812 Other specific arthropathies, not elsewhere classified, left shoulder; M50.90 Cervical disc disorder, unspecified, unspecified cervical region; M51.360 Other intervertebral disc degeneration, lumbar region with discogenic back pain only; G47.00 Insomnia, unspecified; E66.9 Obesity, unspecified

== ENCOUNTER → 2024-08-03 09:53 | Outpatient (BNVA) | payer OTHER, SELFPAY | PROVIDERS: PCP Internal Medicine; Visit Provider Internal Medicine | DX: E78.00 Pure hypercholesterolemia, unspecified (principal); I10 Essential (primary) hypertension; R73.01 Impaired fasting glucose; R79.89 Other specified abnormal findings of blood chemistry; Z23 Encounter for immunization; J30.9 Allergic rhinitis, unspecified; M12.812 Other specific arthropathies, not elsewhere classified, left shoulder; M50.90 Cervical disc disorder, unspecified, unspecified cervical region; M51.360 Other intervertebral disc degeneration, lumbar region with discogenic back pain only; G47.00 Insomnia, unspecified; E66.9 Obesity, unspecified; Z68.32 Body mass index [BMI] 32.0-32.9, adult; Z79.899 Other long term (current) drug therapy | CPT/HCPCS: 90471; 90656; 96127 ==

== ENCOUNTER 2024-09-12 08:24 | Outpatient (AMB) | payer OTHER, SELFPAY ==
[2024-09-12 08:28] VITALS: BMI 32.8
--- NOTE | 2024-09-12 08:28 | A.OFFVIS_ITS ---
Vital Signs 09/12/24 08:28 Height 5 ft 8 in Weight 216 lb BMI 32.8 Intake Visit Reasons: OV- Left shoulder pain Intake Note: Larry is a 54 year old right hand dominant male who presents today for a follow up of his left shoulder pain. At his last visit (2021) we discussed Left RTC Dysfunction vs a nerve disorder. It was recommended that he attend physical therapy and complete MRI of the C spine and Shoulder as well as an EMG of left upper extremity. No showed EMG. Patient reports that the shoulder is feeling about the same. IMPRESSION Left Shoulder: 1. Mild supraspinatus tendinosis is unchanged. No measurable rotator cuff tendon tear. 2. Moderate acromioclavicular osteoarthritis, slightly progressed. Tiny subacromial spurs. 3. Subacromial-subdeltoid bursitis, slightly more prominent when compared to the prior MRI. 4. Increasing irregular fraying through the anterior and anteroinferior labrum. Small glenohumeral joint effusion. IMPRESSION C-Spine: 1. Mild lordotic reversal centered at C4-C5 with slight retrolisthesis at C6-C7, with multilevel DDD and spondylosis as described above. 2. Multilevel posterior disc osteophyte complex is asymmetric to the left between C3-C4 and C5-C6 inclusive and disc protrusions at C2-C3, C6-C7 and T2-T3 as discussed above with mild canal stenosis at C6-C7. No spinal cord impingement. Mild spondylitic myelomalacia on the left suspected at C5-C6. 3. Multilevel DJD as discussed above with extensive multilevel bilateral bony neural foraminal stenosis, left more than right and left lateral recess stenosis most apparent at C4-C5 and C5-C6 and to a lesser degree at C3-C4 and C6-C7. 4. Numerous nonenlarged upper cervical lymph nodes noted bilaterally. Correlate clinically for any possible infectious or inflammatory etiology. Allergies hydrocodone Adverse Reaction (Intermediate, Verified 08/03/24 10:26) nausea,dizziness HPI HPI OV- Left shoulder pain: Details: Larry is a 54 year old right hand dominant male who presents today for a follow up of his left shoulder pain. At his last visit (2021) we discussed Left RTC Dysfunction vs a nerve disorder. It was recommended that he attend physical therapy and complete MRI of the C spine and Shoulder as well as an EMG of left upper extremity. No showed EMG. Patient reports that the shoulder is feeling about the same. He has done physical therapy and an EMG was ordered but not obtained. He returns today continuing to have similar symptoms with persistent numbness and tingling in his radial 2 digits of his left hand. His pain is posterior and involves the entirety of the shoulder joint. He has to sit in a particular position at night otherwise he can not sleep because of pain. [facility] Medical History Lumbar degenerative disc disease Pure hypercholesterolemia Benign essential hypertension Cervical disc disease Overweight (BMI 25.0-29.9) Allergic rhinitis Occipital headache Achilles tendinitis Rotator cuff arthropathy of left shoulder Surgical History History of colonoscopy Family History Father CVD (cardiovascular disease) Mother Diabetes Brain tumor Social History Housing: House Alcohol intake: current Alcohol intake frequency: holidays/special occasions only Patient Tobacco Use Status: Former Tobacco user e-Cigarette/Vaping Use: Never Used Second Hand Smoke Exposure: Yes service: No Current occupational status: employed Current occupational exposures/hazards: No Cognitive needs: No Hearing needs: No Vision needs: Yes Physical Exam Vital Signs: BMI result Body Mass Index 32.8 Extrem Other: Tenderness to palpation over the medial scapular spine. Full range of motion left shoulder with discomfort on terminal combined glenohumeral abduction. Negative empty can. Negative Ford and Neer. Diminished sensation over the radial 2 digits with no thenar or intrinsic atrophy. He has 5/5 strength in finger ab/abduction, wrist flexion, wrist extension, elbow extension 4+/5 biceps and deltoid Results Reviewed Results Reviewed: IMPRESSION Left Shoulder: 1. Mild supraspinatus tendinosis is unchanged. No measurable rotator cuff tendon tear. 2. Moderate acromioclavicular osteoarthritis, slightly progressed. Tiny subacromial spurs. 3. Subacromial-subdeltoid bursitis, slightly more prominent when compared to the prior MRI. 4. Increasing irregular fraying through the anterior and anteroinferior labrum. Small glenohumeral joint effusion. IMPRESSION C-Spine: 1. Mild lordotic reversal centered at C4-C5 with slight retrolisthesis at C6-C7, with multilevel DDD and spondylosis as described above. 2. Multilevel posterior disc osteophyte complex is asymmetric to the left between C3-C4 and C5-C6 inclusive and disc protrusions at C2-C3, C6-C7 and T2-T3 as discussed above with mild canal stenosis at C6-C7. No spinal cord impingement. Mild spondylitic myelomalacia on the left suspected at C5-C6. 3. Multilevel DJD as discussed above with extensive multilevel bilateral bony neural foraminal stenosis, left more than right and left lateral recess stenosis most apparent at C4-C5 and C5-C6 and to a lesser degree at C3-C4 and C6-C7. 4. Numerous nonenlarged upper cervical lymph nodes noted bilaterally. Correlate clinically for any possible infectious or inflammatory etiology. Assessment & Plan Assessment & Plan (1) Weakness of left upper extremity: Code(s): R29.898 - Other symptoms and signs involving the musculoskeletal system Category: Medical Plan: Persistent left upper extremity weakness. MRI ordered. 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 His shoulder exam is benign and more concerning for the persistent weakness . The atypical presentation is more consistent with cervical pathology than shoulder pathology. Given this I would like to repeat the MRI from 2 years ago. Orders: Orders MR cervical spine wo con Today M50.90 - Cervical disc disorder, unspecified, unspecified cervical region, R20.0 - Anesthesia of skin, R20.2 - Paresthesia of skin, R29.898 - Other symptoms and signs involving the musculoskeletal system Coding Level of Care Code Est Pt Level 4 (76176) Diagnoses Weakness of left upper extremity R29.898 Numbness and tingling of left upper extremity R20.0; R20.2 Cervical disc disease M50.90
== END 2024-09-12 08:48 | disposition home or self-care (01) ==
PROVIDERS: PCP Internal Medicine; Visit Provider Orthopaedic Surgery
DX: R29.898 Other symptoms and signs involving the musculoskeletal system (principal); R20.0 Anesthesia of skin; R20.2 Paresthesia of skin; M50.90 Cervical disc disorder, unspecified, unspecified cervical region
CPT/HCPCS: 99214

== ENCOUNTER → 2024-09-12 08:24 | Outpatient (BNVA) | payer OTHER, SELFPAY | PROVIDERS: PCP Internal Medicine; Visit Provider Orthopaedic Surgery ==

== ENCOUNTER → 2024-10-03 07:21 | Outpatient (BNV) | payer OTHER, SELFPAY | PROVIDERS: PCP Internal Medicine; Visit Provider Radiology Diagnostic Radiology | DX: M50.90 Cervical disc disorder, unspecified, unspecified cervical region (principal) | CPT/HCPCS: 72141 ==

== ENCOUNTER 2024-10-03 07:27 | Outpatient (REF) | payer OTHER, SELFPAY ==
--- NOTE | ~2024-10-03 | MR_ITS ---
CLINICAL HISTORY: R29.898 - Other symptoms and signs involving the musculoskeletal system MRI cervical spine without contrast Comparison: 05/26/2022 Findings: C2-3 central disc bulge without canal stenosis. C3-4 left osteophyte with left neural foraminal narrowing. No significant canal stenosis. C4-5 transverse osteophyte, more prominent on the left. Left neural foraminal narrowing without canal stenosis. C5-6 transverse osteophyte without canal stenosis. Bilateral neural foraminal narrowing. C6-7 transverse osteophyte without canal stenosis. No neural foraminal narrowing. There is loss of lordosis of the cervical spine. Posterior alignment remains normal. No acute bony signal abnormalities noted. Cervical cord normal in course and caliber. Impression: Multilevel mild degenerative change as above Findings are unchanged from previous study This document has been electronically signed by: Rodger Fraser MD on 10/04/2024 19:05:53
== END 2024-10-03 07:28 | disposition home or self-care (01) ==
LOC: HO.MRI 07:27
PROVIDERS: PCP Internal Medicine; Visit Provider Orthopaedic Surgery
DX: M50.90 Cervical disc disorder, unspecified, unspecified cervical region (principal); R20.0 Anesthesia of skin; R20.2 Paresthesia of skin; R29.898 Other symptoms and signs involving the musculoskeletal system
CPT/HCPCS: 72141

== ENCOUNTER 2024-11-07 08:35 | Outpatient (AMB) | payer OTHER, SELFPAY ==
--- NOTE | 2024-11-07 08:40 | MHC.OFFVIS ---
Intake Visit Reasons: OV - Left Shoulder Weakness Intake Note: Larry is a 54 year old right hand dominant male who presents today for a follow up of his left shoulder. He has persistent dysfunction of the left shoulder girdle with benign exam, more concerning for weakness. C Spine MRI: Impression: Multilevel mild degenerative change as above Findings are unchanged from previous study Allergies hydrocodone Adverse Reaction (Intermediate, Verified 11/07/24 08:41) nausea,dizziness HPI HPI OV - Left Shoulder Weakness: Details: Larry is a 54 year old right hand dominant male who presents today for a follow up of his left shoulder. He has persistent dysfunction of the left shoulder girdle with benign exam, more concerning for weakness. Larry has been dealing with this shoulder pain for years. He has had injections which have been briefly helpful in the past. He has had MRI of his neck and his shoulder. His cervical MRI showed mild degenerative changes with see forward a 6 foraminal narrowing more prominently on the left. His shoulder MRI showed tendinosis of the superior cuff with mild to moderate AC arthritis and bursitis of the subacromial region with some fraying of the labrum. He continues to describe frustration at times with sleeping and some occasional burning and trembling in the left arm while he also has subdeltoid pain at night. He describes having had injections in the past although I have no record of giving him them within the last 10 years. He states these were briefly helpful. He has done physical therapy in the past. He is frustrated that this is not resolved and he feels like he is going around in circles. [facility] Medical History Lumbar degenerative disc disease Pure hypercholesterolemia Benign essential hypertension Cervical disc disease Overweight (BMI 25.0-29.9) Allergic rhinitis Occipital headache Achilles tendinitis Rotator cuff arthropathy of left shoulder Surgical History History of colonoscopy Family History Father CVD (cardiovascular disease) Mother Diabetes Brain tumor Social History Housing: House Alcohol intake: current Alcohol intake frequency: holidays/special occasions only Patient Tobacco Use Status: Former Tobacco user e-Cigarette/Vaping Use: Never Used Second Hand Smoke Exposure: Yes service: No Current occupational status: employed Current occupational exposures/hazards: No Cognitive needs: No Hearing needs: No Vision needs: Yes Physical Exam Extrem Other: On exam he has positive Ford and Neer with a negative empty can. Positive Schriever's with a negative lift-off. Full range of motion. Ford and Neer testing reproduces pain in the posterior aspect of the deltoid. He has 5/5 strength with deltoid, biceps, triceps, wrist flexion and extension. Office Procedures Joint Inj/Aspir; Non-Pain Clin Joint Injection/Drain Details: Injected 1 mL of Decadron and 3 mL 1% lidocaine and 3 mL of 0.25% Marcaine. Site was prepped using aseptic technique. Patient tolerated the procedure well. Shoulders, Hips, Knees, Shoulder Injection Large joint 58096: Left Shoulder Coding Procedure code (CPT) selection complete Results Reviewed Results Reviewed: I personally reviewed the MR images. Left shoulder: 1. Mild supraspinatus tendinosis is unchanged. No measurable rotator cuff tendon tear. 2. Moderate acromioclavicular osteoarthritis, slightly progressed. Tiny subacromial spurs. 3. Subacromial-subdeltoid bursitis, slightly more prominent when compared to the prior MRI. 4. Increasing irregular fraying through the anterior and anteroinferior labrum. Small glenohumeral joint effusion. Cervical MRI: ession: Multilevel mild degenerative change as above Findings are unchanged from previous study Assessment & Plan Assessment & Plan (1) Cervical disc disease: Code(s): M50.90 - Cervical disc disorder, unspecified, unspecified cervical region Category: Medical Plan: I referred him to pain management and Dr. Ann. If injection of his cervical spine is helpful it will help the laciniate between is to presenting problems. (2) Painful arc syndrome of left shoulder: Code(s): M75.102 - Unspecified rotator cuff tear or rupture of left shoulder, not specified as traumatic Category: Medical Plan: I injected Larry's left shoulder today. He will let me know if this is helpful. The problem we are having is that he has moderate symptoms in the left shoulder and back with mildly positive findings on imaging and exam. We have been not moving forward because it has been challenging to delineate between these 2 etiologies. Therefore hopefully sending him to pain management and having them inject his neck and me injecting his shoulder will help us do that. We will see him back in 6 weeks' time. Orders: Referrals Pain Management Referral M50.90 - Cervical disc disorder, unspecified, unspecified cervical region, R29.898 - Other symptoms and signs involving the musculoskeletal system Coding Level of Care Code Est Pt Level 4 (48589) Diagnoses Cervical disc disease M50.90 Painful arc syndrome of left shoulder M75.102 CPT Codes Shoulders, Hips, Knees, - Shoulder Injection Large joint 67662: Left Shoulder ([id number])
== END 2024-11-07 09:20 | disposition home or self-care (01) ==
PROVIDERS: PCP Internal Medicine; Visit Provider Orthopaedic Surgery
DX: M75.102 Unspecified rotator cuff tear or rupture of left shoulder, not specified as traumatic (principal); M50.90 Cervical disc disorder, unspecified, unspecified cervical region
CPT/HCPCS: 20610; 99214

== ENCOUNTER → 2024-11-07 08:35 | Outpatient (BNVA) | payer OTHER, SELFPAY | PROVIDERS: PCP Internal Medicine; Visit Provider Orthopaedic Surgery | DX: M75.102 Unspecified rotator cuff tear or rupture of left shoulder, not specified as traumatic (principal); M50.90 Cervical disc disorder, unspecified, unspecified cervical region; R29.898 Other symptoms and signs involving the musculoskeletal system | CPT/HCPCS: 20610; J0665; J1100; J2003 ==

== ENCOUNTER 2024-11-17 11:18 | Outpatient (AMB) | payer OTHER, SELFPAY ==
--- NOTE | 2024-11-17 11:22 | MHC.OFFVIS ---
Vital Signs 11/17/24 11:29 11/17/24 11:30 Height 5 ft 8 in Weight 221 lb 2 oz BMI 33.6 BP 187/121 H 174/122 H Blood Pressure Location Rt brachial Lt brachial Position Sitting Pulse 101 H Pulse Source Pulse Oximeter Pulse Oximetry (%) 99 Oxygen Delivery Method Room Air Comment bp recheck Intake Visit Reasons: Cervical disc disorder, Allergies hydrocodone Adverse Reaction (Intermediate, Verified 11/17/24 11:31) nausea,dizziness HPI Comments Details: Larry is a very pleasant 54-year-old male who presented to the office today for evaluation and management of his chronic cervical neck pain He has been suffering with this pain for approximately 2 years. He denies inciting injury, fall, trauma Initially he thought his pain was related to his left shoulder. He is under the treatment of Orthopedics for left shoulder pain. Less than 2 weeks ago he received a steroid injection to the left shoulder by Dr. David, he reports 75% improvement in left shoulder pain, function and mobility since the injection. He is now able to lift his arm over his head and reach behind his back, he could not do this prior to the steroid injection. Despite steroid injection continues with discomfort to the left side of his neck. Patient has attempted physical therapy without improvement. He has tried heat, icy hot and massage all without improvement. Taking 100 mg of ibuprofen daily as needed but pain persists Also taking cyclobenzaprine as needed but reports it makes him very sleepy so he is only using it at bedtime. Reports numbness of the left thumb and index finger. Denies history of EMG. Pain today is rated as a 2/10. Worse with palpation, cervical range of motion. In terms of muscle damage condition is described as aching, spasming, hot, burning, stabbing, sharp, tingling, numb, throbbing Pain is negatively impacting patient's enjoyment of life, general activity, normal work, recreational activities, sleep Denies implantable devices, pacemaker or defibrillator Denies current use of nicotine, tobacco, alcohol or illicit substances Denies current use of anticoagulants [facility] Medical History Lumbar degenerative disc disease Pure hypercholesterolemia Benign essential hypertension Cervical disc disease Overweight (BMI 25.0-29.9) Allergic rhinitis Occipital headache Achilles tendinitis Rotator cuff arthropathy of left shoulder Surgical History History of colonoscopy Family History Father CVD (cardiovascular disease) Mother Diabetes Brain tumor Social History Housing: House Alcohol intake: current Alcohol intake frequency: holidays/special occasions only Patient Tobacco Use Status: Former Tobacco user e-Cigarette/Vaping Use: Never Used Second Hand Smoke Exposure: Yes service: No Current occupational status: employed Current occupational exposures/hazards: No Cognitive needs: No Hearing needs: No Vision needs: Yes Review of Systems Const All systems reviewed & are unremarkable except as noted in HPI and below Physical Exam Vital Signs: Last Vital Signs Pulse 101 H 11/17/24 11:29 BP 174/122 H 11/17/24 11:30 Pulse Ox 99 11/17/24 11:29 Oxygen Delivery Method Room Air 11/17/24 11:29 BMI result Body Mass Index 33.6 General: awake, alert, oriented. Answers questions appropriately. Fully engaged in examination. Skin: warm, dry, intact HEENT: Normocephalic. Hearing intact. Cardiac: External chest normal in appearance. Respiratory: No cough, audible wheezing or stridor. Abdomen: without gross distension. MS: No obvious swelling or deformities. Able to transition from sit to stand unassisted. Cervical Spine: Visible inspection without gross abnormality Moderate tenderness throughout left upper and middle trapezius muscle with palpable trigger points and taut bands Nontender to palpation midline cervical vertebrae decreased cervical ROM in all planes Spurling compression test negative Neurological: Oriented to person, place, time and situation. Thought process intact. No gait abnormalities appreciated. Psychiatric: Appropriate mood and affect. Good judgment and insight. Results Reviewed Results Reviewed: 10/04/24 MRI cervical spine without contrast Findings: C2-3 central disc bulge without canal stenosis. C3-4 left osteophyte with left neural foraminal narrowing. No significant canal stenosis. C4-5 transverse osteophyte, more prominent on the left. Left neural foraminal narrowing without canal stenosis. C5-6 transverse osteophyte without canal stenosis. Bilateral neural foraminal narrowing. C6-7 transverse osteophyte without canal stenosis. No neural foraminal narrowing. There is loss of lordosis of the cervical spine. Posterior alignment remains normal. No acute bony signal abnormalities noted. Cervical cord normal in course and caliber. Impression: Multilevel mild degenerative change as above Findings are unchanged from previous study 05/02/24 XR/XR cervical spine 5V FINDINGS: Vertebral body heights and alignment are normal. At C3-C4, there is mild disc space narrowing. At C4-C5 through C6-C7, there is moderately severe disc space narrowing, with endplate arthropathy. No acute fracture or spondylolisthesis is seen. The posterior elements are intact. There is left neural foraminal narrowing at C3-C4, and bilateral neural foraminal narrowing is seen at C4-C5 through C6-C7. The dens is intact. No prevertebral soft tissue swelling is seen. IMPRESSION: 1. There is mild degenerative disc disease at C3-C4, and moderately severe degenerative disc disease extends from C4-C5 through C6-C7. 2. There is left neural foraminal narrowing at C3-C4, and bilateral neural foraminal narrowing is seen at C4-C5 through C6-C7. 05/02/24 XR/XR shoulder LT min 2V FINDINGS: The bones and soft tissues are normal. No fracture. Glenohumeral and acromioclavicular alignment is anatomic with normal joint space. No abnormal soft tissue calcifications. IMPRESSION: Normal left shoulder. Assessment & Plan Assessment & Plan (1) Trapezius muscle spasm: Code(s): M62.838 - Other muscle spasm Category: Medical (2) Painful arc syndrome of left shoulder: Code(s): M75.102 - Unspecified rotator cuff tear or rupture of left shoulder, not specified as traumatic Category: Medical (3) Numbness and tingling of left upper extremity: Code(s): R20.0 - Anesthesia of skin; R20.2 - Paresthesia of skin Category: Medical (4) Cervical disc disease: Code(s): M50.90 - Cervical disc disorder, unspecified, unspecified cervical region Category: Medical Plan Larry patel is a very pleasant 54-year-old male who presented to the office today for evaluation and management of his chronic neck pain History, physical exam and provocative testing consistent with trapezius muscle strain/spasm Order placed for PT eval and treat EMG ordered to evaluate for left thumb/index finger paresthesia Will schedule patient for an office left trapezius trigger point injections with Dr. Faith All questions and concerns were answered, patient agrees with the plan. Follow up after injections, sooner if needed. Orders: Orders PT Evaluation and Treatment Today M62.838 - Other muscle spasm NE electromyogram (EMG) Today R20.0 - Anesthesia of skin, R20.2 - Paresthesia of skin Coding Level of Care Code New Pt Level 4 (96679) Complex EM visit Add On G2211 Diagnoses Trapezius muscle spasm M62.838 Painful arc syndrome of left shoulder M75.102 Numbness and tingling of left upper extremity R20.0; R20.2 Cervical disc disease M50.90
[2024-11-17 11:29] VITALS: BP 187/121; PULSE 101; O2SAT 99; BMI 33.6
[2024-11-17 11:30] VITALS: BP 174/122
== END 2024-11-17 12:10 | disposition home or self-care (01) ==
PROVIDERS: PCP Internal Medicine; Referring Provider Orthopaedic Surgery; Visit Provider Registered Nurse Emergency
DX: M62.838 Other muscle spasm (principal); M75.102 Unspecified rotator cuff tear or rupture of left shoulder, not specified as traumatic; R20.0 Anesthesia of skin; R20.2 Paresthesia of skin; M50.90 Cervical disc disorder, unspecified, unspecified cervical region
CPT/HCPCS: 99204

== ENCOUNTER → 2024-11-17 11:18 | Outpatient (BNVA) | payer OTHER, SELFPAY | PROVIDERS: PCP Internal Medicine; Referring Provider Orthopaedic Surgery; Visit Provider Registered Nurse Emergency ==

== ENCOUNTER 2024-11-18 11:44 | Outpatient (AMB) | payer OTHER, SELFPAY ==
[2024-11-18 11:48] VITALS: BP 160/90; PULSE 99; O2SAT 97; BMI 33.6
--- NOTE | 2024-11-18 11:48 | MHC.PC.OV ---
Vital Signs 11/18/24 11:48 Height 5 ft 8 in Weight 221 lb BMI 33.6 BP 160/90 H Blood Pressure Location Lt brachial Position Sitting Pulse 99 Pulse Source Pulse Oximeter Pulse Oximetry (%) 97 Oxygen Delivery Method Room Air Intake Visit Reasons: Chest paint , Allergies hydrocodone Adverse Reaction (Intermediate, Verified 11/18/24 12:29) nausea,dizziness Medication List - Last Reconciled 11/18/24 by Sophia Abarca PA-C cyclobenzaprine 5 mg PO BID PRN ibuprofen 800 mg PO TID PRN lisinopril 5 mg PO DAILY 90 days Tobacco use date assessed: 11/18/24 Dental Screening Dental Screen Date: 08/03/24 [facility] Medical History (Updated 11/18/24 @ 12:30 by Sophia Abarca PA-C) RBBB Chest pain Lumbar degenerative disc disease Pure hypercholesterolemia Benign essential hypertension Cervical disc disease Overweight (BMI 25.0-29.9) Allergic rhinitis Occipital headache Achilles tendinitis Rotator cuff arthropathy of left shoulder Surgical History History of colonoscopy Family History Father CVD (cardiovascular disease) Mother Diabetes Brain tumor Social History Housing: House Alcohol intake: current Alcohol intake frequency: holidays/special occasions only Patient Tobacco Use Status: Former Tobacco user e-Cigarette/Vaping Use: Never Used Second Hand Smoke Exposure: Yes service: No Current occupational status: employed Current occupational exposures/hazards: No Cognitive needs: No Hearing needs: No Vision needs: Yes Questionnaire PHQ-9 Over the last 2 weeks, how often have you been bothered by any of the following problems? 1. Little interest or pleasure in doing things: not at all 2. Feeling down, depressed, or hopeless: not at all 3. Trouble falling or staying asleep, or sleeping too much: not at all 4. Feeling tired or having little energy: not at all 5. Poor appetite or overeating: not at all 6. Feeling bad about yourself - or that you are a failure or have let yourself or your family down: not at all 7. Trouble concentrating on things, such as reading the newspaper or watching television: not at all 8. Moving or speaking so slowly that other people could have noticed. Or the opposite - being so fidgety or restless that you have been moving around a lot more than usual: not at all 9. Thoughts that you would be better off or of hurting yourself in some way: not at all Total score: 0 Depression Screening Interpretation: Negative Depression Screening Done: Yes 89551 - PHQ-9 Billing: Yes Source: Developed by Drs. Solo Bach, Payton Lundy, Ryan Vallejo and colleagues, with an educational norris from [employer]. Thrive Questionnaire Date Thrive assessed: 11/18/24 I am a: Patient What is your living situation today?: I have a steady place to live Within the past 12 months, did the food you bought not last and you didn't have the money to get more?: Never true Within the past 12 months, did you worry whether your food would run out before you got money to buy more?: Never true Do you have trouble paying for medicines?: No Do you have trouble getting transportation to medical appointments?: No Do you have trouble paying your heating and electricity bill?: No Do you have trouble taking care of your child, family member or friend?: No Do you have trouble with day-to-day activities such as bathing, preparing meals, shopping, managing finances, etc.?: No Are you currently unemployed and looking for a job?: No Are you interested in more education?: No Please select the resources that you would like help with: None Currently or been in a relationship where the following occur: No concerns reported THRIVE Score: 0 AUDIT C Alcohol Use Questionnaire (AUDIT-C) 1. How often do you have a drink containing alcohol?: Monthly or less 2. How many drinks containing alcohol do you have on a typical day when you are drinking?: 1 or 2 3. How often do you have six or more drinks on one occasion?: Never Total Score: 1 Score Reviewed/Action Taken: Yes DYLAN-7 AMB Questionnaire DYLAN-7 Date DYLAN - 7 assessed: 11/18/24 Feeling nervous, anxious, or on edge: 0 = Not at all Not being able to stop or control worryin = Not at all Worrying too much about different things: 0 = Not at all Trouble relaxin = Not at all Being so restless that it is hard to sit still: 0 = Not at all Becoming easily annoyed or irritable: 0 = Not at all Feeling afraid as if something awful might happen: 0 = Not at all Total DYLAN-7 score (0-4 normal; 5-9 mild; 10-14 moderate; 15-21 severe): 0 Source: Developed by Drs. Solo Bach, Payton Lundy, Ryan Vallejo and colleagues, with an educational norris from [employer]. DYLAN-7 Assessment Billing DYLAN-7 Assessment Tool: DYLAN-7 Assessment 51393 Physical exam (Primary Care) Vital Signs: Last Vital Signs Pulse 99 11/18/24 11:48 BP 160/90 H 11/18/24 11:48 Pulse Ox 97 11/18/24 11:48 Oxygen Delivery Method Room Air 11/18/24 11:48 BMI result Body Mass Index 33.6 Tobacco/Smoking Status: Tobacco use Status Tobacco use date assessed 11/18/24 11/18/24 11:54 Patient Tobacco Use Status Former Tobacco user 11/18/24 11:54 e-Cigarette/Vaping Use Never Used 11/18/24 11:54 PHQ-9: PHQ-9 Score PHQ-9: Total score 0 11/18/24 12:10 Depression Screening Interpretation: Negative Thrive Assessment: Date of Thrive Assessment Date Thrive assessed 11/18/24 11/18/24 11:54 Currently or been in a relationship where the following occur: No concerns reported Office Procedures EKG Details: EKG SINUS RHYTHM WITH A VENTRICULAR RATE OF 106 WITH RIGHT AXIS DEVIATION RIGHT BUNDLE-BRANCH BLOCK WITH NONSPECIFIC CHANGES IN V2, V3, V4, V5. DR. BAZZI REVIEWED THIS EKG 64463-[id number], Complete Coding Level of Care Code Est Pt Level 4 (69791) Complex EM visit Add On G2211 Diagnoses Chest pain R07.9 RBBB I45.10 CPT Codes EKG - CPT: 46378-[id number], Complete ([id number]) Additional Codes DYLAN-7 Assessment Billing - DYLAN-7 Assessment Tool: DYLAN-7 Assessment 31582 ([id number]) PHQ-9 - 17130 - PHQ-9 Billing: Yes ([id number]) Assessment & Plan Assessment & Plan (1) Chest pain: Code(s): R07.9 - Chest pain, unspecified Category: Medical Plan: Patient sent to the emergency department for further evaluation of this left-sided chest pain and right bundle-branch block. Patient refused an ambulance was very adamant about this. He would like to walk over drive his car over. I discussed risks with him and he understands. Although patient continue to refused an ambulance. I called the emergency department and spoke to PAULY Alvarado in triage. (2) RBBB: Code(s): I45.10 - Unspecified right bundle-branch block Category: Medical Plan: Patient sent to the emergency department for further evaluation of this left-sided chest pain and right bundle-branch block. Patient refused an ambulance was very adamant about this. He would like to walk over drive his car over. I discussed risks with him and he understands. Although patient continue to refused an ambulance. I called the emergency department and spoke to PAULY Alvarado in triage. Plan Plan - Evaluate chest pain and respiratory symptoms to rule out serious conditions such as pneumonia or the flu or ACS. - Advise the patient to proceed directly to the Emergency Room for further evaluation and management. - Monitor right bundle branch block to ascertain if it is acute or chronic. - Continue current management with lisinopril for hypertension and monitor cholesterol levels. Patient Instructions: Patient Instructions - Proceed immediately to the Emergency Room at [facility] for further evaluation of chest pain and respiratory symptoms. - Do not wait; go directly for assessment without delay. - Keep your car parked as stated to avoid any potential parking issues. - Update your spouse on your medical evaluation and necessary next steps. Scribe Plan - Not visible on output: History of Present Illness The patient is a 54-year-old male presenting with chest pain and shortness of breath. The chest pain, primarily on the left side and also noted in the middle of the chest and back, began this morning. The patient reports difficulty breathing through his nose for approximately a week, potentially linked to a cold contracted from his son. Symptoms intensified from nasal congestion to a chest affliction, and he experienced morning expectoration of mucus. The patient denies fever but confirms significant sinus involvement prior to the chest symptoms. He has previously tested negative for COVID-19 twice. Past medical history is significant for elevated blood pressure managed with lisinopril and high cholesterol. He received a cortisone injection recently. There is no history of myocardial infarction or cerebrovascular accidents. An EKG indicates a right bundle branch block; however, its newness is uncertain. Social History - The patient is . - He experienced exposure to a common cold via his son. - No substance use or other family planning details were discussed. Review of Systems - Respiratory: Reports coughing and spitting out mucus; denies fever. - ENT: Reports nasal congestion. Physical Exam Appearance: Alert. Oriented X3. No acute distress. Head: Normal external exam. Normocephalic. Atraumatic. Eyes: Pupils are equal, round, and reactive to light. Extraocular movements intact. Conjunctiva and sclera normal. Eyelids normal. Ears: External auditory canal normal. Tympanic membranes normal. Throat: Pharynx normal. Uvula midline. Moist mucous membranes. Neck: Normal inspection. Neck supple. Full range of motion. No adenopathy. Thyroid Normal. No meningeal signs. No neck mass noted. Cardiovascular: Normal heart rate and rhythm. Heart sound normal. No murmurs noted. Pulses normal throughout. Respiratory: Shortness of breath noted. Breath sounds abnormal, with decreased sounds in the right lower lobe. No wheezes/rales/rhonchi noted. Chest nontender. No accessory muscle usage noted or decreased air movement noted. Abdomen: Soft and nontender. Bowel sounds normal in all 4 quadrants. No distention noted. No organomegaly noted. No visible injury noted. Back: No costovertebral angle tenderness. Full range of motion noted. Skin: Skin warm and dry. Normal skin color. Normal skin turgor. No rashes/lesions/lacerations noted. Extremities: No lower extremity edema. Extremities exhibit normal range of motion. Extremities nontender. Neuro: Oriented X 3. No motor deficit. No sensory deficit. Reflexes normal. Results - Tests and Imaging: EKG shows a right bundle branch block with unknown chronicity. Plan - Evaluate chest pain and respiratory symptoms to rule out serious conditions such as pneumonia or the flu or ACS. - Advise the patient to proceed directly to the Emergency Room for further evaluation and management. - Monitor right bundle branch block to ascertain if it is acute or chronic. - Continue current management with lisinopril for hypertension and monitor cholesterol levels. Patient was informed and verbally consented to the use of an ambient scribe for clinic note documentation during this visit. Discussion Notes I discussed with the patient that the combination of flu-like symptoms, sinus congestion, and potential right bundle branch block on EKG necessitates further evaluation in the Emergency Room. Though heart attacks were ruled out given the current evidence, the risk of potential pneumonia requires precautionary measures. The patient was informed of the potential impact of flu or pneumonia on the cardiovascular system and the need for precise diagnosis to guide treatment. I advised direct transfer to [facility] for detailed assessment and reinforced the need for vigilance due to his symptoms without causing undue alarm. The patient's decision to drive himself rather than use ambulance services was noted, given the need to inform his spouse. Patient Instructions - Proceed immediately to the Emergency Room at [facility] for further evaluation of chest pain and respiratory symptoms. - Do not wait; go directly for assessment without delay. - Keep your car parked as stated to avoid any potential parking issues. - Update your spouse on your medical evaluation and necessary next steps.
== END 2024-11-18 12:37 | disposition home or self-care (01) ==
PROVIDERS: PCP Internal Medicine; Visit Provider Physician Assistant Medical
DX: R07.9 Chest pain, unspecified (principal); I45.10 Unspecified right bundle-branch block

== ENCOUNTER 2024-11-18 12:12 | Emergency (ER) | payer OTHER, SELFPAY ==
--- NOTE | ~2024-11-18 | XR_ITS ---
EXAMINATION: XR CHEST 2 VIEWS HISTORY: pain COMPARISON: Comparison is made with the prior examination dated 11/24/2023. FINDINGS: PA and lateral views of the chest are submitted. The lungs are expanded and clear. There is no pleural effusion, pneumothorax, or pulmonary vascular congestion. The heart is normal in size. The bones are intact. XR/XR chest 2V IMPRESSION: No acute cardiopulmonary abnormality. Electronically signed by: Solo Bell MD 11/18/2024 01:23 PM [facility]
--- NOTE | 2024-11-18 12:15 | ECG_ITS ---
Test Reason : chest pain Blood Pressure : */* mmHG Vent. Rate : 98 BPM Atrial Rate : 98 BPM P-R Int : 140 ms QRS Dur : 148 ms QT Int : 394 ms P-R-T Axes : 34 86 3 degrees QTcB Int : 503 ms Normal sinus rhythm Right bundle branch block Abnormal ECG No previous ECGs available Referred By: Malachi Foster Electronically Signed By: RODRIGUE THOMAS MD
[2024-11-18 12:38] LABS: MANUAL DIFF FLAG NO
[2024-11-18 12:39] LABS: Basophils Absolute Auto 0.1 X10*3/uL (0.0-0.2); Basophils Percent Auto 0.7 % (0-2); Eosinophils Absolute Auto 0.2 X10*3/uL (0.0-0.4); Eosinophils Percent Auto 2.2 % (0-4); Hematocrit 43.7 % (42.0-52.0); Hemoglobin 15.7 g/dl (14.0-18.0); Imm Gran Abs Auto 0.03 X10*3/uL (0.00-0.03); Imm Gran Pct Auto 0.4 % (0.0-0.4); Lymphocytes Absolute Auto 1.9 X10*3/uL (1.2-4.9); Lymphocytes Percent Auto 25.8 % (20-40); Mean Corpuscular HGB Conc 35.9 g/dl (31.0-36.0); Mean Corpuscular Hemoglobin 32.2 pg (27.0-33.0); Mean Corpuscular Volume 89.7 fL (80.0-98.0); Mean Platelet Volume 10.3 fL (9.4-12.4); Monocytes Absolute Auto 0.8 X10*3/uL (0.1-1.2); Monocytes Percent Auto 10.3 % (2-11); Neutrophils Absolute Auto 4.4 x10*3/uL (2.0-8.3); Neutrophils Percent Auto 60.6 % (45-73); Platelet Count 193 X10*3/uL (160-400); Red Blood Count 4.87 X10*6/uL (4.60-5.80); Red Cell Distribution Width 12.1 % (11.0-16.0); White Blood Count 7.3 X10*3/uL (4.8-10.8)
[2024-11-18 12:40] VITALS: BP 181/118; PULSE 99; RESP 18; TEMP 36.9; O2SAT 97; BMI 32.4
--- NOTE | 2024-11-18 12:44 | ED.CHESTPAIN ---
HPI - Chest Pain General Chief Complaint: Chest Pain Stated Complaint: Abnormal EKG - sent by Dr Rincon Seen by Provider: 11/18/24 19:53 Source: patient Limitations: no limitations History of Present Illness ED Provider: Luisa Romero PA-C HPI narrative: 54-year-old male with a history of hypertension, hyperlipidemia who presents from his primary care's office with an abnormal EKG. Patient was seen by primary care for left-sided chest discomfort, he had an EKG performed, it was abnormal, he was sent to the emergency department for further assessment. The pain is reproducible with palpation of chest wall. Patient states he feels as if he is developing a ?cold?, associated nasal congestion. The patient denies trauma, or overuse injury. Denies diaphoresis, shortness of breath, nausea or vomiting. Related Data Previous Rx's ?Medication ?Instructions ?Recorded ibuprofen 800 mg tablet 800 mg PO TID PRN for fever #90 09/03/24 tabs cyclobenzaprine 5 mg tablet 5 mg PO BID PRN muscle spasm #30 09/04/24 tabs amlodipine 10 mg tablet 10 mg PO DAILY #30 tabs 11/22/24 fluticasone propionate 50 1 spray intranasal BID #16 grams 11/22/24 mcg/actuation nasal spray,suspension loratadine 10 mg tablet (Allergy 10 mg PO DAILY PRN allergy 11/22/24 Relief (loratadine)) symptoms #30 tabs Allergies Allergy/AdvReac Type Severity Reaction Status Date / Time hydrocodone AdvReac Intermediate nausea,dizz Verified 11/22/24 08:48 iness Review of Systems Review of Systems: Yes all other systems are reviewed and are negative Constitutional: Constitutional: Denies fatigue and Denies fever(s) Cardiovascular: Cardiovascular: Reports chest pain and Denies dyspnea Respiratory: Respiratory: Denies cough, Denies dyspnea and Denies wheezing Gastrointestinal: Gastrointestinal: Denies abdominal pain, Denies nausea and Denies vomiting Endocrine: Endocrine: Denies fatigue Allergic/Immunologic: Allergic/Immunologic: Denies wheezing [facility] Past Medical History Attestation statement: The following information was validated with the patient. Medical History (Updated 11/22/24 @ 09:38 by LONNY Zurita) RBBB Chest pain Lumbar degenerative disc disease Pure hypercholesterolemia Benign essential hypertension Cervical disc disease Overweight (BMI 25.0-29.9) Allergic rhinitis Occipital headache Achilles tendinitis Rotator cuff arthropathy of left shoulder Surgical History History of colonoscopy Family History Family History Father CVD (cardiovascular disease) Mother Diabetes Brain tumor Social History Social History Housing: House Alcohol intake: current Alcohol intake frequency: holidays/special occasions only Patient Tobacco Use Status: Former Tobacco user e-Cigarette/Vaping Use: Never Used Second Hand Smoke Exposure: Yes service: No Current occupational status: employed Current occupational exposures/hazards: No Cognitive needs: No Hearing needs: No Vision needs: Yes Physical Exam Vital Signs: Vital Signs: Last Vital Signs Temp 97.7 F 11/18/24 21:10 Pulse 77 11/18/24 21:10 Resp 18 11/18/24 21:10 BP 151/107 H 11/18/24 21:10 Pulse Ox 97 11/18/24 21:10 O2 Del Method Room Air 11/18/24 21:10 BMI result Body Mass Index 32.4 Const: Other: Alert, well-appearing Orientation/consciousness: patient oriented x3 Chest: Other: Pain elicited left anterior chest wall with palpation, no deformity noted Resp: Effort & Inspection: normal respiratory effort Cardio: Other: Normal peripheral perfusion Skin: Other: Warm dry no rash Neuro: General: patient oriented x3, gait normal, no focal motor deficits and CN's II-XI intact bilaterally Psych: Other: Calm cooperative Course Course Course Narrative: RME, this is a rapid medical exam performed by Christiano Foster please refer to primary provider for complete H&P- 54-year-old male presents for evaluation of chest pain. He was sent here from primary care where he was being seen for chest pain. He was found to have a right bundle branch block on his EKG. Plan for labs including a troponin. Medical Decision Making Medical Decision Making [facility] Narrative: 54-year-old male with a history of hypertension, hyperlipidemia who presents from his primary care's office with an abnormal EKG. Patient was seen by primary care for left-sided chest discomfort, he had an EKG performed, it was abnormal, he was sent to the emergency department for further assessment. The pain is reproducible with palpation of chest wall. Patient states he feels as if he is developing a ?cold?, associated nasal congestion. The patient denies trauma, or overuse injury. Denies diaphoresis, shortness of breath, nausea or vomiting. Problem: Hypertension, hyperlipidemia, age History: Per patient I have considered the following differential diagnoses: ACS, chest wall strain, costochondritis, viral syndrome Plan: ACS was considered, screening labs including a chest x-ray troponin and EKG were obtained. The patient's exam is consistent with chest wall strain, given the reproducible nature of the discomfort. Thought about costochondritis as cause for his symptoms, the patient seems as if he may be developing viral syndrome, we will add a viral panel. I have independently reviewed the following tests: Labs: No leukocytosis, not anemic, no electrolyte abnormality, troponin flat, 5.6 and 6.1 respectively, viral panel negative Chest x-ray: RDER #: [id number] XR/XR chest 2V IMPRESSION: No acute cardiopulmonary abnormality. Electronically signed by: Solo Bell MD 11/18/2024 01:23 PM [facility] EKG: Normal sinus rhythm, RBBB, no ischemic changes no ectopy rate 98, QTC 503 Lab Data 11/18/24 12:34 11/18/24 12:34 Labs: Lab Results 11/18/24 11/18/24 11/18/24 Range/Units 12:34 18:32 21:03 WBC 7.3 (4.8-10.8) X10*3/uL RBC 4.87 (4.60-5.80) X10*6/uL Hgb 15.7 (14.0-18.0) g/dl Hct 43.7 (42.0-52.0) % MCV 89.7 (80.0-98.0) fL MCH 32.2 (27.0-33.0) pg MCHC 35.9 (31.0-36.0) g/dl RDW 12.1 (11.0-16.0) % Plt Count 193 (160-400) X10*3/uL MPV 10.3 (9.4-12.4) fL Immature Gran % (Auto) 0.4 (0.0-0.4) % Neut % (Auto) 60.6 (45-73) % Lymph % (Auto) 25.8 (20-40) % [place] % (Auto) 10.3 (2-11) % Eos % (Auto) 2.2 (0-4) % Baso % (Auto) 0.7 (0-2) % Lymph # (Auto) 1.9 (1.2-4.9) X10*3/uL [place] # (Auto) 0.8 (0.1-1.2) X10*3/uL Eos # (Auto) 0.2 (0.0-0.4) X10*3/uL Baso # (Auto) 0.1 (0.0-0.2) X10*3/uL Abs Immat Gran (auto) 0.03 (0.00-0.03) X10*3/uL Absolute Neuts (auto) 4.4 (2.0-8.3) x10*3/uL Absolute Nucleated RBC 0.000 (0.0-0.012) X10*3/uL Nucleated RBC % (auto) 0.0 (0.0-0.2) /100WBC PT 12.0 (10.9-12.4) SEC INR 1.0 (0.9-1.1) Sodium 138 (135-145) mmol/L Potassium 3.7 (3.3-5.1) mmol/L Chloride 107 (96-108) mmol/L Carbon Dioxide 22 (22-29) mmol/L Anion Gap 13 (12-20) BUN 15 (9-16) mg/dL Creatinine 0.91 (0.5-1.4) mg/dL Estim Creat Clear Calc 104.5 Estimated GFR > 60 Random Glucose 127 H (60-115) mg/dL Calcium 9.1 (8.4-10.2) mg/dL Total Bilirubin 0.8 (0.0-1.0) mg/dL AST 56 H (5-37) U/L ALT 102 H (0-40) U/L Alkaline Phosphatase 89 (39-117) U/L Troponin I High Sens 5.6 6.1 (<3.5-35.0) ng/L Total Protein 7.1 (6.5-8.0) g/dL Albumin 4.1 (3.5-5.0) g/dL Lipase 23 (8-78) U/L Influenza Type A (PCR) NEGATIVE (Negative) Influenza Type B (PCR) NEGATIVE (Negative) RSV RNA Qual (PCR) NEGATIVE (Negative) SARS-CoV-2 RNA (RT-PCR) NEGATIVE (Negative) Discharge Plan Discharge Clinical Impression: Chest wall pain, Acute viral syndrome Patient Disposition: Home, Self-Care Instructions: Viral Syndrome (ED), Noncardiac Chest Pain (ED) Additional Instructions: All of your screening labs including 2 cardiac enzymes were normal. There were no concerning changes on your EKG in the way of ischemic changes, you do have a new right bundle branch block per our records. The chest x-ray is clear. Your symptoms are most consistent with chest wall pain, given the discomfort is very focal and reproducible with palpation of the chest wall. In addition, it sounds as if you are developing viral illness. You have a viral swab pending, we are screening you for influenza a and B, RSV and COVID, you can check your patient portal for results. Continue to follow up with your primary care provider, they will likely implement additional outpatient cardiac workup. Prescriptions: No Action ibuprofen 800 mg tablet 800 mg PO TID PRN (Reason: for fever) Qty: 90 0RF cyclobenzaprine 5 mg tablet 5 mg PO BID PRN (Reason: muscle spasm) Qty: 30 2RF amlodipine 10 mg tablet 10 mg PO DAILY Qty: 30 0RF fluticasone propionate 50 mcg/actuation spray,suspension 1 spray intranasal BID Qty: 16 0RF Rx Instructions: administer into each nostril loratadine [Allergy Relief (loratadine)] 10 mg tablet 10 mg PO DAILY PRN (Reason: allergy symptoms) Qty: 30 0RF Interventions: ED Discharge Assessment Last Done: 11/18/24 21:10 Discharge Date/Time: 11/18/24 21:11 Print Language: Yoruba
[2024-11-18 12:54] LABS: Alanine Aminotransferase 102 U/L (0-40); Albumin Level 4.1 g/dL (3.5-5.0); Alkaline Phosphatase 89 U/L (39-117); Anion Gap 13 (12-20); Aspartate Amino Transferase 56 U/L (5-37); Bilirubin Total 0.8 mg/dL (0.0-1.0); Blood Urea Nitrogen 15 mg/dL (9-16); Calcium 9.1 mg/dL (8.4-10.2); Carbon Dioxide 22 mmol/L (22-29); Chloride 107 mmol/L (96-108); Creatinine Clr Calc Pharmacy 104.5; Estimated Glomerular Filt Rate > 60; Glucose Random 127 mg/dL (60-115); Lipase 23 U/L (8-78); Potassium 3.7 mmol/L (3.3-5.1); Sodium 138 mmol/L (135-145); Total Protein 7.1 g/dL (6.5-8.0)
[2024-11-18 13:02] LABS: Troponin-I High Sensitivity 5.6 ng/L (<3.5-35.0)
[2024-11-18 18:10] VITALS: BP 209/120; PULSE 79; RESP 20; TEMP 36.2; O2SAT 97
[2024-11-18 18:56] LABS: Troponin-I High Sensitivity 6.1 ng/L (<3.5-35.0)
[2024-11-18 20:33] VITALS: BP 151/107; PULSE 77; RESP 18; TEMP 36.5; O2SAT 97
[2024-11-18 21:10] VITALS: BP 151/107; PULSE 77; RESP 18; TEMP 36.5; O2SAT 97
[2024-11-18 22:10] LABS: Influenza A PCR NEGATIVE (Negative); Influenza B PCR NEGATIVE (Negative); Resp Syncy Virus RNA Qual PCR NEGATIVE (Negative); SARS COV2 PCR INHOUSE NEGATIVE (Negative)
== END 2024-11-18 21:11 | disposition home or self-care (01) ==
PROVIDERS: Physician Assistant; Physician Assistant Medical; Emergency Provider Emergency Medicine; PCP Internal Medicine
DX: B34.9 Viral infection, unspecified (principal); R07.89 Other chest pain; R94.31 Abnormal electrocardiogram [ECG] [EKG]; I45.10 Unspecified right bundle-branch block; Z03.818 Encounter for observation for suspected exposure to other biological agents ruled out; Z79.899 Other long term (current) drug therapy
CPT/HCPCS: 0241U; 36415; 71046; 80053; 83690; 84484; 85025; 85610; 93005; 96127; 99284

== ENCOUNTER → 2024-11-18 12:15 | Outpatient (BNV) | payer OTHER, SELFPAY | PROVIDERS: PCP Internal Medicine; Visit Provider Internal Medicine Cardiovascular Disease | DX: I45.10 Unspecified right bundle-branch block (principal) | CPT/HCPCS: 93010 ==

== ENCOUNTER → 2024-11-18 12:15 | Outpatient (BNV) | payer OTHER, SELFPAY | PROVIDERS: PCP Internal Medicine; Visit Provider Radiology Diagnostic Radiology | DX: R07.9 Chest pain, unspecified (principal) | CPT/HCPCS: 71046 ==

== ENCOUNTER 2024-11-22 08:33 | Outpatient (AMB) | payer OTHER, SELFPAY ==
[2024-11-22 08:47] VITALS: BP 136/94; PULSE 85; TEMP 36.3; O2SAT 94; BMI 34.4
--- NOTE | 2024-11-22 08:47 | A.OFFPC_ITS ---
Vital Signs 11/22/24 08:47 Height 5 ft 8 in Weight 226 lb 4 oz BMI 34.4 BP 136/94 H Blood Pressure Location Lt brachial Position Sitting Pulse 85 Pulse Source Pulse Oximeter Temp 97.3 F Temp Source Skin Pulse Oximetry (%) 94 Oxygen Delivery Method Room Air Intake Visit Reasons: ER follow up [facility] [place] Allergies hydrocodone Adverse Reaction (Intermediate, Verified 11/22/24 08:48) nausea,dizziness Tobacco use date assessed: 11/18/24 Dental Screening Dental Screen Date: 08/03/24 HPI ER follow up [facility] [place] HPI Details The patient is a 54-year-old male past medical history of right-sided Franklin's palsy, benign essential hypertension, cervical disc disease, H pylori gastritis Patient was last seen in office on 11/18/24 on that visit he was sent to the emergency room for complaints of left-sided chest pain and was noted to have a new right bundle branch block. The patient was evaluated in the ER: All of your screening labs including 2 cardiac enzymes were normal. There were no concerning changes on your EKG in the way of ischemic changes, you do have a new right bundle branch block per our records. The chest x-ray is clear. Your symptoms are most consistent with chest wall pain, given the discomfort is very focal and reproducible with palpation of the chest wall. In addition, it sounds as if you are developing viral illness. You have a viral swab pending, we are screening you for influenza a and B, RSV and COVID, you can check your patient portal for results. Continue to follow up with your primary care provider, they will likely implement additional outpatient cardiac workup Patient is presenting today for follow up ER visit [facility] Medical History (Updated 11/22/24 @ 09:38 by LONNY Zurita) RBBB Chest pain Lumbar degenerative disc disease Pure hypercholesterolemia Benign essential hypertension Cervical disc disease Overweight (BMI 25.0-29.9) Allergic rhinitis Occipital headache Achilles tendinitis Rotator cuff arthropathy of left shoulder Surgical History History of colonoscopy Family History Father CVD (cardiovascular disease) Mother Diabetes Brain tumor Social History Housing: House Alcohol intake: current Alcohol intake frequency: holidays/special occasions o nly Patient Tobacco Use Status: Former Tobacco user e-Cigarette/Vaping Use: Never Used Second Hand Smoke Exposure: Yes service: No Current occupational status: employed Current occupational exposures/hazards: No Cognitive needs: No Hearing needs: No Vision needs: Yes Questionnaire Thrive Questionnaire Date Thrive assessed: 11/18/24 AUDIT C Alcohol Use Questionnaire (AUDIT-C) 2. How many drinks containing alcohol do you have on a typical day when you are drinking?: 1 or 2 3. How often do you have six or more drinks on one occasion?: Never Total Score: 0 DYLAN-7 AMB Questionnaire DYLAN-7 Date DYLAN - 7 assessed: 11/18/24 Source: Developed by Drs. Solo Bach, Payton Lundy, Ryan Vallejo and colleagues, with an educational norris from [employer]. Physical exam (Primary Care) Vital Signs: Last Vital Signs Temp 97.3 F 11/22/24 08:47 Pulse 85 11/22/24 08:47 BP 136/94 H 11/22/24 08:47 Pulse Ox 94 11/22/24 08:47 Oxygen Delivery Method Room Air 11/22/24 08:47 BMI result Body Mass Index 34.4 Tobacco/Smoking Status: Tobacco use Status Tobacco use date assessed 11/22/24 11/22/24 08:52 Patient Tobacco Use Status Former Tobacco user 11/22/24 08:52 e-Cigarette/Vaping Use Never Used 11/22/24 08:52 PHQ-9: PHQ-9 Score PHQ-9: Total score 0 11/22/24 23:20 Thrive Assessment: Date of Thrive Assessment Date Thrive assessed 11/22/24 11/22/24 08:52 Coding Assessment & Plan Assessment & Plan Medications: New amlodipine 10 mg PO DAILY 30 tabs 0RF I10 - Essential (primary) hypertension loratadine (Allergy Relief (loratadine)) 10 mg PO DAILY PRN 30 tabs 0RF allergy symptoms J30.9 - Allergic rhinitis, unspecified fluticasone propionate 50 mcg/actuation administer into each nostril 1 spray intranasal BID 16 grams 0RF R09.81 - Nasal congestion Discontinued lisinopril Discontinued Reason: Doctor's Order 5 mg PO DAILY 90 days 90 tabs 1RF I10 - Essential (primary) hypertension
--- NOTE | 2024-11-22 08:47 | MHC.PC.OV ---
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 Required: No Accompanied by: Self / Same As Patient Allergies hydrocodone Adverse Reaction (Intermediate, Verified 11/22/24 08:48) nausea,dizziness Tobacco use date assessed: 11/22/24 Dental Screening Dental Screen Date: 11/22/24 Did you have a dental visit in the last 12 months?: No Did you have a dental problem in the last 6 months where you did not have access to dental care?: No Was dental information given to patient?: No HPI [place] [facility] [place] HPI Details The patient is a 54-year-old male past medical history of right-sided Franklin's palsy, benign essential hypertension, cervical disc disease, H pylori gastritis Patient was last seen in office on 11/18/24 on that visit he was sent to the emergency room for complaints of left-sided chest pain and new right bundle branch block. The patient was evaluated in the ER: All of your screening labs including 2 cardiac enzymes were normal. There were no concerning changes on your EKG in the way of ischemic changes, you do have a new right bundle branch block per our records. The chest x-ray is clear. Your symptoms are most consistent with chest wall pain, given the discomfort is very focal and reproducible with palpation of the chest wall. In addition, it sounds as if you are developing viral illness. You have a viral swab pending, we are screening you for influenza a and B, RSV and COVID, you can check your patient portal for results. Continue to follow up with your primary care provider, they will likely implement additional outpatient cardiac workup Patient is presenting today for follow up ER visit Patient reports that he has been having a cough for probably over a year Reports that he was told by his sister that she had the same issue while on lisinopril and had to be switched to a different medication The patient is currently on lisinopril 5mg and his blood pressure has been elevated The patient called in to the office yesterday and I told the patient to take an extra 5mg of lisinopril Patient is following up today, BP continues to be above goal Reports taking the lisinopril 5 mg this morning prior to visit Patient reports that he is not having chest pain right now but if he squeezes the left side of his chest he could reproduce a slight soreness Patient denies heart palpitation, denies dizziness, he endorsed mild shortness of breath with exertion that he think is partly due to his congestion Patient reports that the only thing he could think of that might have triggered this pain is shoveling the snow The patient is also complaining of nasal congestion reports that he has not been able to breathe out of his nose since last week Reports that he thought that was part of the reason for his cough but he also recall that he always has a cough Bilateral nares with erythema and boggy turbinates we will order Flonase nose spray and send the patient some Claritin We will refer the patient to Cardiology to get evaluation [facility] Medical History (Updated 11/22/24 @ 09:38 by LONNY Zurita) RBBB Chest pain Lumbar degenerative disc disease Pure hypercholesterolemia Benign essential hypertension Cervical disc disease Overweight (BMI 25.0-29.9) Allergic rhinitis Occipital headache Achilles tendinitis Rotator cuff arthropathy of left shoulder Surgical History History of colonoscopy Family History Father CVD (cardiovascular disease) Mother Diabetes Brain tumor Social History Housing: House Alcohol intake: current Alcohol intake frequency: holidays/special occasions only Patient Tobacco Use Status: Former Tobacco user e-Cigarette/Vaping Use: Never Used Second Hand Smoke Exposure: Yes service: No Current occupational status: employed Current occupational exposures/hazards: No Cognitive needs: No Hearing needs: No Vision needs: Yes Questionnaire PHQ-9 Over the last 2 weeks, how often have you been bothered by any of the following problems? 1. Little interest or pleasure in doing things: not at all 2. Feeling down, depressed, or hopeless: not at all 3. Trouble falling or staying asleep, or sleeping too much: not at all 4. Feeling tired or having little energy: not at all 5. Poor appetite or overeating: not at all 6. Feeling bad about yourself - or that you are a failure or have let yourself or your family down: not at all 7. Trouble concentrating on things, such as reading the newspaper or watching television: not at all 8. Moving or speaking so slowly that other people could have noticed. Or the opposite - being so fidgety or restless that you have been moving around a lot more than usual: not at all 9. Thoughts that you would be better off or of hurting yourself in some way: not at all Total score: 0 Depression Screening Interpretation: Negative Depression Screening Done: Yes 61087 - PHQ-9 Billing: Yes Source: Developed by Drs. Solo Bach, Payton Lundy, Ryan Vallejo and colleagues, with an educational norris from [employer]. Thrive Questionnaire Date Thrive assessed: 11/22/24 I am a: Patient What is your living situation today?: I have a steady place to live Within the past 12 months, did the food you bought not last and you didn't have the money to get more?: Never true Within the past 12 months, did you worry whether your food would run out before you got money to buy more?: Never true Do you have trouble paying for medicines?: No Do you have trouble getting transportation to medical appointments?: No Do you have trouble paying your heating and electricity bill?: No Do you have trouble taking care of your child, family member or friend?: No Do you have trouble with day-to-day activities such as bathing, preparing meals, shopping, managing finances, etc.?: No Are you currently unemployed and looking for a job?: No Are you interested in more education?: No Please select the resources that you would like help with: None Currently or been in a relationship where the following occur: No concerns reported THRIVE Score: 0 AUDIT C Alcohol Use Questionnaire (AUDIT-C) 1. How often do you have a drink containing alcohol?: Monthly or less 2. How many drinks containing alcohol do you have on a typical day when you are drinking?: 1 or 2 3. How often do you have six or more drinks on one occasion?: Never Total Score: 1 DYLAN-7 AMB Questionnaire DYLAN-7 Date DYLAN - 7 assessed: 02/18/25 Feeling nervous, anxious, or on edge: 0 = Not at all Not being able to stop or control worryin = Not at all Worrying too much about different things: 0 = Not at all Trouble relaxin = Not at all Being so restless that it is hard to sit still: 0 = Not at all Becoming easily annoyed or irritable: 0 = Not at all Feeling afraid as if something awful might happen: 0 = Not at all Total DYLAN-7 score (0-4 normal; 5-9 mild; 10-14 moderate; 15-21 severe): 0 Source: Developed by Drs. Solo Bach, Payton Lundy, Ryan Vallejo and colleagues, with an educational norris from [employer]. DYLAN-7 Assessment Billing DYLAN-7 Assessment Tool: DYLAN-7 Assessment 55991 Review of Systems Const Details: Denies chills, reports feeling tired, Denies fever(s), Denies headache(s) and Denies weakness HEENT Denies change in vision, Denies dizziness, Denies headache(s), Denies hearing loss, + nasal congestion, Denies sinus pain, Denies sinus pressure and Denies sore throat Card + mild chest soreness with palpation, Denies lightheadedness, Denies dyspnea and Denies other (palpitations) Resp + ongoing dry cough, + mild shortness of breath and Denies wheezing GI Denies abdominal pain, Denies melena, Denies hematochezia, Denies change in bowel habits, Denies dyspepsia and Denies nausea Denies hematuria and Denies dysuria Musc Denies abnormal gait, Denies myalgias, +arthralgias (chronicity left shoulder), Denies numbness and Denies tingling Skin/Breast Denies rash, Denies unusual bruising and Denies wounds Neuro Denies abnormal gait, Denies dizziness, Denies headache(s), Denies memory loss, Denies numbness, Denies Sensory deficit (Neuro), Denies tingling and Denies weakness Psych Denies anxiety, Denies depression and Denies memory loss Endo Denies cold intolerance, Denies fatigue, Denies heat intolerance, Denies polydipsia and Denies polyuria Ottoniel/Lymph Denies easy bleeding and Denies easy bruising Aller/Immun Denies wheezing Physical exam (Primary Care) Vital Signs: Last Vital Signs Temp 97.3 F 11/22/24 08:47 Pulse 85 11/22/24 08:47 BP 136/94 H 11/22/24 08:47 Pulse Ox 94 11/22/24 08:47 Oxygen Delivery Method Room Air 11/22/24 08:47 BMI result Body Mass Index 34.4 Tobacco/Smoking Status: Tobacco use Status Tobacco use date assessed 11/22/24 11/22/24 08:52 Patient Tobacco Use Status Former Tobacco user 11/22/24 08:52 e-Cigarette/Vaping Use Never Used 11/22/24 08:52 PHQ-9: PHQ-9 Score PHQ-9: Total score 0 11/22/24 09:04 Depression Screening Interpretation: Negative Thrive Assessment: Date of Thrive Assessment Date Thrive assessed 11/22/24 11/22/24 08:52 Currently or been in a relationship where the following occur: No concerns reported Const Other: General: no acute distress, well developed, alert and awake Nutritional Appearance: well nourished Orientation/consciousness: patient oriented x3 HENMT Head: Yes normocephalic and Yes atraumatic Ears: hearing grossly normal bilaterally and TM's normal bilaterally General nose exam: Normal external nose present, bilateral nares erythema with boggy turbinates Mouth: Normal oral and palatal mucosa present and moist mucous membranes Teeth and gingiva: dentition normal Throat: Yes oropharynx normal Eyes Pupils: Equal, round and reactive pupils present and Pupil accommodation reflex normal EOM: EOMs intact bilaterally Neck Neck: Yes normal visual inspection, Yes no lymphadenopathy and Yes trachea midline Thyroid: Thyroid normal Carotids: no bruits Lymphatic: no lymphadenopathy noted Chest Soreness to the left chest with palpation & inspection: normal inspection of the chest Resp Effort & Inspection: normal respiratory effort Auscultation: clear to auscultation bilaterally Cardio Rate: regular rate Rhythm: regular rhythm Heart sounds: S1 normal heart sound present, S2 normal heart sound present, no gallops, no murmurs and no rubs Bruits: no abdominal aortic bruits and no carotid bruits GI Palpation (GI): Abdomen is soft and nontender palpation Auscultation: normal bowel sounds General: Yes no CVA tenderness Back/Spine/Pelvis Back: no CVA tenderness Cervical Spine: left shoulder radiates to left neck Thoracic/Lumbar Spine: no lumbar tenderness Skin General: warm and dry. Normal skin color. Normal skin turgor Lesions: no lesions Wounds: no wounds Nails: normal Neuro General: patient oriented x3, gait normal Cranial nerves: Yes Equal, round and reactive pupils present Cognition (Neuro): normal cognition Extrem General: Yes normal to inspection, No edema and No calf tenderness Psych Appearance: grossly normal Affect: normal affect Attitude: cooperative Thought process: Normal thought process present Coding Level of Care Code Tele New Pt Level 3 (83316) Diagnoses Nasal congestion R09.81 RBBB I45.10 Chest pain, unspecified type R07.9 Chest pain type: unspecified Allergic rhinitis, unspecified seasonality, unspecified trigger J30.9 Allergic rhinitis seasonality: unspecified Allergic rhinitis trigger: unspecified Benign essential hypertension I10 Additional Codes DYLAN-7 Assessment Billing - DYLAN-7 Assessment Tool: DYLAN-7 Assessment 18900 ([id number]) PHQ-9 - 47876 - PHQ-9 Billing: Yes ([id number]) Time Spent (min) 36 Assessment & Plan Assessment & Plan (1) Nasal congestion: Code(s): R09.81 - Nasal congestion Category: Medical Plan: Fluticasone propionate 50 mcg/actuation went for initially b.i.d. and loratadine 10 mg daily p.r.n. ordered (2) RBBB: Code(s): I45.10 - Unspecified right bundle-branch block Category: Medical Plan: The patient was sent to the emergency room due to new right bundle branch block and complaints of left-sided chest pain All tests have been negative so far. We will refer the patient to Cardiology for evaluation (3) Chest pain: Code(s): R07.9 - Chest pain, unspecified Category: Medical Qualifiers: Chest pain type: unspecified Qualified Code(s): R07.9 - Chest pain, unspecified Plan: Patient denies chest pain in office but endorse mild soreness still left side of chest with palpation The patient is consistent with muscular, but he concern and wants to be evaluated further Discussed with patient that he will be referral to Cardiology for an evaluation (4) Allergic rhinitis: Code(s): J30.9 - Allergic rhinitis, unspecified Category: Medical Qualifiers: Allergic rhinitis seasonality: unspecified Allergic rhinitis trigger: unspecified Qualified Code(s): J30.9 - Allergic rhinitis, unspecified Plan: Loratadine 10 mg ordered (5) Benign essential hypertension: Code(s): I10 - Essential (primary) hypertension Category: Medical Plan: Reinforced low sodium diet The patient has been experiencing ongoing cough. Will stop his lisinopril and start amlodipine 10 mg daily The patient was on lisinopril 5 mg daily without good BP control The patient has an appt in office on 12/06/24 Plan Follow up with PCP Medications: New amlodipine 10 mg PO DAILY 30 tabs 0RF I10 - Essential (primary) hypertension loratadine (Allergy Relief (loratadine)) 10 mg PO DAILY PRN 30 tabs 0RF allergy symptoms J30.9 - Allergic rhinitis, unspecified fluticasone propionate 50 mcg/actuation administer into each nostril 1 spray intranasal BID 16 grams 0RF R09.81 - Nasal congestion Discontinued lisinopril Discontinued Reason: Doctor's Order 5 mg PO DAILY 90 days 90 tabs 1RF I10 - Essential (primary) hypertension
== END 2024-11-22 09:23 | disposition home or self-care (01) ==
PROVIDERS: PCP Internal Medicine
DX: R09.81 Nasal congestion (principal); I45.10 Unspecified right bundle-branch block; R07.9 Chest pain, unspecified; J30.9 Allergic rhinitis, unspecified; I10 Essential (primary) hypertension

== ENCOUNTER → 2024-11-22 08:33 | Outpatient (BNVA) | payer OTHER, SELFPAY | PROVIDERS: PCP Internal Medicine | DX: R09.81 Nasal congestion (principal); I45.10 Unspecified right bundle-branch block; R07.9 Chest pain, unspecified; J30.9 Allergic rhinitis, unspecified; I10 Essential (primary) hypertension | CPT/HCPCS: 96127 ==

== ENCOUNTER 2024-11-30 10:20 | Outpatient (REF) | payer OTHER, SELFPAY ==
--- NOTE | 2024-11-30 | EMG_ITS ---
Chief complaint: At least 2 years of left shoulder pain radiating the elbow, and numbness on 1st and 2nd digits. Noted results of cervical MRI 2021 in 2023. Reason for referral: Evaluate for Carpal Tunnel Syndrome versus radiculopathy Referred by: Sagrario Swanson NP Procedure done: Left upper extremity NCS/EMG Precautions and/or limitations: None The limb temperature was monitored continuously and remained between 32-36 degrees C during the performance of the NCS. Nerve Conduction Studies Anti Sensory Summary Table ?Stim Site NR Onset (ms) Norm Onset (ms) Peak (ms) Norm Peak (ms) O-P Amp (?V) Norm O-P Amp Site1 Site2 Delta-0 (ms) Dist (cm) Mat (m/s) Norm Mat (m/s) Left Median Anti Sensory (2nd Digit) Wrist ? 2.6 3.2 <3.6 35.7 >10 Wrist 2nd Digit 2.6 14.0 54 Left Radial Anti Sensory (Thumb) Forearm ? 1.7 2.2 <3.1 48.9 Forearm Thumb 1.7 0.0 Left Ulnar Anti Sensory (5th Digit) Wrist ? 2.4 3.0 <3.7 18.7 >15.0 Wrist 5th Digit 2.4 14.0 58 Motor Summary Table ?Stim Site NR Onset (ms) Norm Onset (ms) O-P Amp (mV) Norm O-P Amp iAmp (mV) Amp (1st) (%) Site1 Site2 Delta-0 (ms) Dist (cm) Mat (m/s) Norm Mat (m/s) Left Median Motor (Abd Poll Brev) Wrist ? 3.4 <3.9 13.1 >4.5 14.8 100.0 Elbow Wrist 4.1 0.0 >45 Elbow ? 7.5 13.0 14.9 99.2 Left Ulnar Motor (Abd Dig Minimi) Wrist ? 2.8 <3.0 8.2 >5 10.3 100.0 B Elbow Wrist 3.5 0.0 >45 B Elbow ? 6.3 7.4 9.5 90.2 A Elbow B Elbow 1.3 20.0 154 >45 A Elbow ? 7.6 8.0 10.3 97.6 EMG ?Side Muscle Nerve Root Ins Act Fibs Psw Amp Dur Poly Recrt Int Pat Comment Left 1stDorInt Ulnar C8-T1 Nml Nml Nml Nml Nml 0 Nml Complete Left FlexCarRad Median C6-7 Nml Nml Nml Incr Incr 0 Nml Complete Left Biceps Musculocut C5-6 Nml Nml Nml Incr Incr 0 Nml Complete Left Triceps Radial C6-7-8 Nml Nml Nml Incr Incr 0 Nml Complete Left Deltoid Axillary C5-6 Nml Nml Nml Incr Incr 0 Nml Complete Paraspinal EMG ?Side Muscle Nerve Root Ins Act Fibs Psw Comment Left Cervical Upper Rami Nml Nml Nml Left Cervical Mid Rami Incr 1+ 1+ Left Cervical Lower Rami Nml Nml Nml FINDINGS: All motor and sensory nerves tested showed normal latencies, amplitudes and conduction velocities. Concentric needle EMG was performed in selected muscles of the left upper extremity and cervical paraspinals. Study revealed signs of electric abnormalities as shown in the table above. Increased amplitude and duration seen on left deltoid, biceps, triceps and FCR muscles. Left mid cervical paraspinals showed increased insertional activity, PSWs and fibrillations. IMPRESSION: 1. This is an abnormal study. 2. There is electrodiagnostic evidence for left acute on chronic cervical radiculopathy, affecting C4/5/6 levels. 3. There is no electrodiagnostic evidence for median neuropathy, ulnar neuropathy, or brachial plexopathy. Thank you for your kind referral. Gloria Odom MD, PAYTON Board Certified, [place] Board [employer] and Rehabilitation (ABPMR) Board Certified, [place] Board of Electrodiagnostic Medicine (ABEM) CODIN [id number] [facility]
== END 2024-11-30 10:21 | disposition home or self-care (01) ==
LOC: HO.NEURO 10:20
PROVIDERS: PCP Internal Medicine; Visit Provider Registered Nurse Emergency
DX: R20.0 Anesthesia of skin (principal); R20.2 Paresthesia of skin
CPT/HCPCS: 95886; 95909

== ENCOUNTER → 2024-11-30 10:22 | Outpatient (BNV) | payer OTHER, SELFPAY | PROVIDERS: PCP Internal Medicine; Visit Provider Physical Medicine & Rehabilitation | DX: M54.12 Radiculopathy, cervical region (principal) | CPT/HCPCS: 95886; 95909 ==

== ENCOUNTER 2024-12-06 10:45 | Outpatient (AMB) | payer OTHER, SELFPAY ==
--- NOTE | 2024-12-06 10:50 | MHC.PC.OV ---
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 Qa Required: No Accompanied by: Self / Same As Patient Allergies hydrocodone Adverse Reaction (Intermediate, Verified 12/06/24 11:44) nausea,dizziness Medication List - Last Reconciled 12/06/24 by Valeriy Ayon MD amlodipine 10 mg PO DAILY cyclobenzaprine 5 mg PO BID PRN fluticasone propionate 50 mcg/actuation 1 spray intranasal BID ibuprofen 800 mg PO TID PRN loratadine (Allergy Relief (loratadine)) 10 mg PO DAILY PRN Tobacco use date assessed: 12/06/24 Dental Screening Dental Screen Date: 11/22/24 Did you have a dental visit in the last 12 months?: No Did you have a dental problem in the last 6 months where you did not have access to dental care?: No Was dental information given to patient?: Patient has dentist HPI hyperlipidemia, elevated LFTs, IFG HPI Details Patient comes in today for his follow up visit States that he currently feels okay He recalls coming in here to the office about 3 weeks ago for left-sided chest pains Was found to have RBBB on EKG here and was sent to the ER for further evaluation Work ups done at the ER revealed no concerning findings and he was reassured that his chest pains at the time are likely musculoskeletal in nature He was sent for a viral panel as he reports feeling that he was coming down with a cold at the time but his viral panel all came back negative Patient states that his previous left-sided chest pains have mostly resolved and he now only has an occasional discomfort over the area of his previous symptoms but he is requesting for a referral to see cardiology or at least have some stress testing done just to be on the safe side He also notes that his blood pressure has been running high often lately and he is surprised that it is actually good today when checked in the office He denies any headaches or dizziness Denies any increased SOB or exertional chest pains No nausea/vomiting, no abdominal pain No change in bowel habits noted [facility] Medical History (Updated 12/06/24 @ 12:24 by Valeriy Ayon MD) RBBB Chest pain Lumbar degenerative disc disease Pure hypercholesterolemia Benign essential hypertension Cervical disc disease Overweight (BMI 25.0-29.9) Allergic rhinitis Occipital headache Achilles tendinitis Rotator cuff arthropathy of left shoulder Surgical History History of colonoscopy Family History Father CVD (cardiovascular disease) Mother Diabetes Brain tumor Social History Housing: House Alcohol intake: current Alcohol intake frequency: holidays/special occasions only Patient Tobacco Use Status: Former Tobacco user e-Cigarette/Vaping Use: Never Used Second Hand Smoke Exposure: Yes service: No Current occupational status: employed Current occupational exposures/hazards: No Cognitive needs: No Hearing needs: No Vision needs: Yes Questionnaire PHQ-9 Over the last 2 weeks, how often have you been bothered by any of the following problems? Depression Screening Interpretation: Negative Depression Screening Done: Yes Source: Developed by Drs. Solo Bahc, Payton Lundy, Ryan Vallejo and colleagues, with an educational norris from [employer]. Thrive Questionnaire Date Thrive assessed: 11/22/24 Currently or been in a relationship where the following occur: No concerns reported THRIVE Score: 0 DYLAN-7 AMB Questionnaire DYLAN-7 Date DYLAN - 7 assessed: 11/22/24 Source: Developed by Drs. Solo Bach, Payton Lundy, Ryan Vallejo and colleagues, with an educational norris from [employer]. Review of Systems Const Denies chills, Denies fatigue, Denies fever(s) and Denies headache(s) ENT Denies dysphagia, Denies dizziness, Denies otalgia, Denies headache(s), Reports neck pain (chronic), Denies odynophagia and Denies sore throat Card Reports chest pain (on and off sharp, left-sided pain - subsiding recently), Denies palpitations and Denies dyspnea Resp Denies chest congestion, Denies cough and Denies dyspnea GI Denies abdominal pain, Denies constipation, Denies dysphagia, Denies heartburn, Denies diarrhea, Denies nausea, Denies odynophagia and Denies vomiting Denies dysuria, Denies nocturia and Denies urinary frequency Musc Reports back pain (increased lately over the lower lumbar areas bilaterally), Reports arthralgias (left shoulder (chronic) but pain has been increasing lately), Denies muscle weakness, Reports neck pain (chronic) and Reports stiffness (in the left shoulder) Skin/Breast Denies rash Neuro Denies dizziness and Denies headache(s) Psych Reports anxiety Endo Denies fatigue and Denies palpitations Physical exam (Primary Care) Vital Signs: Last Vital Signs Temp 97.8 F 12/06/24 10:51 Pulse 90 12/06/24 10:51 BP 124/82 12/06/24 10:51 Pulse Ox 94 12/06/24 10:51 Oxygen Delivery Method Room Air 12/06/24 10:51 BMI result Body Mass Index 35.0 Tobacco/Smoking Status: Tobacco use Status Tobacco use date assessed 12/06/24 12/06/24 11:00 Patient Tobacco Use Status Former Tobacco user 12/06/24 11:00 e-Cigarette/Vaping Use Never Used 12/06/24 11:00 Depression Screening Interpretation: Negative Thrive Assessment: Date of Thrive Assessment Date Thrive assessed 11/22/24 12/06/24 11:00 Currently or been in a relationship where the following occur: No concerns reported Const General: no acute distress and alert HENMT Ears: TM's normal bilaterally and EAC's normal Throat: Yes posterior oropharynx normal and Yes tonsils normal Neck Neck: No lymphadenopathy Thyroid: Thyroid normal Resp Auscultation: clear to auscultation bilaterally, no rales and no wheezes Cardio Rate: regular rate Rhythm: regular rhythm Heart sounds: no murmurs GI Palpation (GI): Soft to palpation and nontender Auscultation: normal bowel sounds General: Yes no CVA tenderness Back/Spine/Pelvis Back: no CVA tenderness Cervical Spine: Cervical spine tenderness Thoracic/Lumbar Spine: paraspinal muscle tenderness bilaterally in the mid lumbar and in the lower lumbar and No lumbar spinal tenderness Skin Rashes: no rashes Extrem General: Yes no clubbing, cyanosis or edema Left upper extremity: shoulder/upper arm Details: tenderness Location: of the A-C joint Results Reviewed Results Reviewed: Laboratory Tests 11/18/24 12:34 WBC 7.3 Hgb 15.7 Hct 43.7 Plt Count 193 Sodium 138 Potassium 3.7 Creatinine 0.91 Estimated GFR > 60 Random Glucose 127 H Calcium 9.1 AST 56 H ALT 102 H Albumin 4.1 Lipase 23 Coding Level of Care Code Est Pt Level 4 (24523) Diagnoses Pure hypercholesterolemia E78.00 Benign essential hypertension I10 Impaired fasting glucose R73.01 Elevated LFTs R79.89 Chest pain, unspecified type R07.9 Chest pain type: unspecified Allergic rhinitis, unspecified seasonality, unspecified trigger J30.9 Allergic rhinitis trigger: unspecified Allergic rhinitis seasonality: unspecified Rotator cuff arthropathy of left shoulder M12.812 Cervical disc disease M50.90 Degeneration of intervertebral disc of lumbar region with discogenic back pain M51.360 Disc-related pain type: discogenic back pain only Insomnia, unspecified type G47.00 Insomnia type: unspecified Obesity (BMI 30-39.9) E66.9 Colon cancer screening Z12.11 Assessment & Plan Assessment & Plan (1) Pure hypercholesterolemia: Code(s): E78.00 - Pure hypercholesterolemia, unspecified Category: Medical Plan: Reinforced low cholesterol diet Patient is reminded that his cholesterol levels back in March 2024 have all increased from earlier last year, especially his TG level which was at 209 mg/dl most recently Will recheck his fasting lipids and labs in a few months for follow up (2) Benign essential hypertension: Code(s): I10 - Essential (primary) hypertension Category: Medical Plan: Reinforced low sodium diet - goal is systolic BP of 120 mm or less His blood pressure today is actually good at 124/82 mm Continue Lisinopril 5 mg QD for now - he is advised that his BP should improve if he can lose at least some of the weight that he gained over the past year Patient is reminded to continue monitoring his blood pressure regularly (3) Impaired fasting glucose: Code(s): R73.01 - Impaired fasting glucose Category: Medical Plan: His FBS was at 120 mg/dl and his HgbA1c was at 5.9% (HgbA1c was previously at 5.5%) when last checked in March 2024 Reinforced low calorie/low carb diet Will recheck his FBS and his HgbA1c in a few months for follow up (4) Elevated LFTs: Code(s): R79.89 - Other specified abnormal findings of blood chemistry Category: Medical Plan: Patient is cautioned that his HgbA1c has increased even further when they were checked a few weeks ago Have again cautioned him to avoid drinking too much alcohol and also avoid taking a lot of Tylenol-containing medications; advised also that losing weight should help get his LFTs back to normal Will recheck his LFTs in a few months for follow up - have discussed with patient that if his LFTs do not improve significantly over the next couple of months, we should have him go get an abdominal US for further evaluation (5) Chest pain: Code(s): R07.9 - Chest pain, unspecified Category: Medical Qualifiers: Chest pain type: unspecified Qualified Code(s): R07.9 - Chest pain, unspecified Plan: Have reassured patient that his recent recurrent left-sided chest pains are most likely musculoskeletal in orgin He is requesting for a cardiology referral for further evaluation today, so will refer him [place] [facility] [place] (6) Allergic rhinitis: Code(s): J30.9 - Allergic rhinitis, unspecified Category: Medical Qualifiers: Allergic rhinitis trigger: unspecified Allergic rhinitis seasonality: unspecified Qualified Code(s): J30.9 - Allergic rhinitis, unspecified Plan: Continue OTC Loratadine 10 mg QD PRN and/or Fluticasone 50 mcg nasal spray QD PRN (7) Rotator cuff arthropathy of left shoulder: Code(s): M12.812 - Other specific arthropathies, not elsewhere classified, left shoulder Category: Medical Plan: Left shoulder MRI done back in May 2022 revealed (+) mild supraspinatus tendinosis that is unchanged from previous with no measurable rotator cuff tendon tear. There is also moderate acromioclavicular osteoarthritis, slightly progressed from previous, with tiny subacromial spurs and (+) subacromial-subdeltoid bursitis, slightly more prominent when compared to the prior MRI. There is also increasing irregular fraying through the anterior and anteroinferior labrum, with (+) small glenohumeral joint effusion noted as well He was referred to physical therapy but he did not complete his sessions as he felt they were too expensive and he is just continuing with the exercise he learned from PT on his own whenever he can Repeat left shoulder MRI was denied by his insurance last year Continue Ibuprofen 800 mg TID PRN and Cyclobenzaprine 5 mg TID PRN Follow up with orthopedics as scheduled (8) Cervical disc disease: Code(s): M50.90 - Cervical disc disorder, unspecified, unspecified cervical region Category: Medical Plan: Patient still has on and off numbness and tingling sensation of the right arm related to his cervical disc disease Cervical MRI done in May 2022 revealed (+) mild lordotic reversal centered at C4-C5 with slight retrolisthesis at C6-C7, with multilevel DDD and spondylosis. There are multilevel posterior disc osteophyte complex asymmetric to the left between C3-C4 and C5-C6 inclusive and disc protrusions at C2-C3, C6-C7 and T2-T3 with mild canal stenosis at C6-C7. No spinal cord impingement. Mild spondylitic myelomalacia on the left suspected at C5-C6. (+) multilevel DJD as discussed above with extensive multilevel bilateral bony neural foraminal stenosis, left more than right and left lateral recess stenosis most apparent at C4-C5 and C5-C6 and to a lesser degree at C3-C4 and C6-C7 Have recommend physical therapy for his neck, especially when his symptoms flare up; patient would like to hold off due to concerns about cost and will call for referral as needed (9) Lumbar degenerative disc disease: Code(s): M51.36 - Other intervertebral disc degeneration, lumbar region Category: Medical Qualifiers: Disc-related pain type: discogenic back pain only Qualified Code(s): M51.360 - Other intervertebral disc degeneration, lumbar region with discogenic back pain only Plan: Reinforced activity and weight-lifting restrictions Lumbar spine x-rays done in November 2023 revealed (+) moderate multilevel lumbar spondylosis with advanced facet arthritis in the [id number] lumbar spine Continue Ibuprofen 800 mg TID PRN and Cyclobenzaprine 5 mg TID PRN (10) Insomnia: Code(s): G47.00 - Insomnia, unspecified Category: Medical Qualifiers: Insomnia type: unspecified Qualified Code(s): G47.00 - Insomnia, unspecified Plan: Sleep hygiene reinforced Continue Trazodone 50 mg Q HS PRN (11) Obesity (BMI 30-39.9): Code(s): E66.9 - Obesity, unspecified Category: Medical Plan: Reinforced diet/exercise as tolerated/lose weight - he has gained some more weight since his last visit (12) Colon cancer screening: Code(s): Z12.11 - Encounter for screening for malignant neoplasm of colon Category: Medical Plan: Patient had his last colonoscopy done with Dr. Stewart in 11/2019 and is now due for repeat colonoscopy (5 year recall) Will refer him back to Dr. Stewart for repeat colonoscopy Plan To return in late February 2025 if possible for his annual physical examination Orders: Orders Complete Blood Count Auto Diff 4 Months D64.9 - Anemia, unspecified, Z00.00 - Encounter for general adult medical examination without abnormal findings Comprehensive [place]. Panel Fast 4 Months E78.00 - Pure hypercholesterolemia, unspecified, Z00.00 - Encounter for general adult medical examination without abnormal findings Vitamin D 25-OH Total 4 Months E55.9 - Vitamin D deficiency, unspecified, Z00.00 - Encounter for general adult medical examination without abnormal findings Lipid Panel 4 Months E78.00 - Pure hypercholesterolemia, unspecified, Z00.00 - Encounter for general adult medical examination without abnormal findings TSH reflex Free T4 4 Months E78.00 - Pure hypercholesterolemia, unspecified, Z00.00 - Encounter for general adult medical examination without abnormal findings UA CC w/rflx Micro + Cult 4 Months R30.0 - Dysuria, Z00.00 - Encounter for general adult medical examination without abnormal findings Prostate Specific Antigen Scr 4 Months Z00.00 - Encounter for general adult medical examination without abnormal findings Referrals Cardiology Referral R07.9 - Chest pain, unspecified, Z00.00 - Encounter for general adult medical examination without abnormal findings Gastroenterology Referral Z12.11 - Encounter for screening for malignant neoplasm of colon
[2024-12-06 10:51] VITALS: BP 124/82; PULSE 90; TEMP 36.6; O2SAT 94; BMI 35.0
== END 2024-12-06 12:00 | disposition home or self-care (01) ==
PROVIDERS: PCP Internal Medicine; Visit Provider Internal Medicine
DX: E78.00 Pure hypercholesterolemia, unspecified (principal); I10 Essential (primary) hypertension; Z68.35 Body mass index [BMI] 35.0-35.9, adult; E66.9 Obesity, unspecified; R73.01 Impaired fasting glucose; R79.89 Other specified abnormal findings of blood chemistry; R07.9 Chest pain, unspecified; J30.9 Allergic rhinitis, unspecified; M12.812 Other specific arthropathies, not elsewhere classified, left shoulder; M50.90 Cervical disc disorder, unspecified, unspecified cervical region; M51.360 Other intervertebral disc degeneration, lumbar region with discogenic back pain only; G47.00 Insomnia, unspecified

== ENCOUNTER 2025-03-06 09:05 | Outpatient (AMB) | payer OTHER, SELFPAY ==
--- OUTSIDE RECORDS SUMMARY | 2025-03-06 09:37 | XMS_ITS | Patient Health Record ---
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 No Plan Of Treatment Pending Test Test Name Order Date ,[id number] TENDON SHEATH/LIGAMENT 1 10/10/2019 Insurance Providers Payer Name Payer Address Payer Phone Subscriber Number Group Number Insured Name Patient Relationship to Insured Coverage Start Date Coverage End Date [facility] [address] [place] [address] [id number] Larry Thibodeaux Self - patient is the insured Medical (General) History Surgical History Surgery Date(Month/Year)
--- NOTE | 2025-03-06 09:56 | MHC.OFFWIV ---
Intake Vital Signs 03/06/25 10:00 Height 5 ft 8 in Weight 225 lb BMI 34.2 BP 136/80 Blood Pressure Location Rt brachial Position Sitting Pulse 76 Pulse Source Pulse Oximeter Pulse Oximetry (%) 97 Oxygen Delivery Method Room Air Intake Visit Reasons: EP RT knee pain/swelling Intake Note: Patient here for right knee pain,swelling and difficulty walking that has been present for a couple of weeks. Patient Tobacco Use Status: Former Tobacco user Allergies hydrocodone Adverse Reaction (Intermediate, Verified 03/06/25 10:01) nausea,dizziness Do you need a note to return to daycare/school/sports/work: No HPI HPI Comments History of Present Illness Details 55 y/o Male patient who presents to the walk in clinic with c/o Right knee pain, swelling and difficulty walking that has been present for a couple of weeks. Denies injury or trauma to the knee. [facility] Medical History (Updated 03/06/25 @ 10:46 by Gabi Corbin NP) Right knee pain RBBB Chest pain Lumbar degenerative disc disease Pure hypercholesterolemia Benign essential hypertension Cervical disc disease Overweight (BMI 25.0-29.9) Allergic rhinitis Occipital headache Achilles tendinitis Rotator cuff arthropathy of left shoulder Surgical History History of colonoscopy Family History Father CVD (cardiovascular disease) Mother Diabetes Brain tumor Social History Housing: House Alcohol intake: current Alcohol intake frequency: holidays/special occasions only Patient Tobacco Use Status: Former Tobacco user e-Cigarette/Vaping Use: Never Used Second Hand Smoke Exposure: Yes service: No Current occupational status: employed Current occupational exposures/hazards: No Cognitive needs: No Hearing needs: No Vision needs: Yes Physical Exam Vital Signs: Last Vital Signs Pulse 76 03/06/25 10:00 BP 136/80 03/06/25 10:00 Pulse Ox 97 03/06/25 10:00 Oxygen Delivery Method Room Air 03/06/25 10:00 BMI result Body Mass Index 34.2 Const General: no acute distress; No comfortable Nutritional Appearance: obese Orientation/consciousness: patient oriented x3 Neuro General: patient oriented x3, gait normal (Walks with a limp) and moves all extremities Extrem Right lower extremity: normal capillary refill, knee Details: normal to inspection, tenderness Location: of the patella and of the popliteal fossa and normal ROM; no swelling, no ecchymosis, no crepitus and no deformity and ankle Details: edema Details: pitting and 1+ and normal ROM; no tenderness Psych Speech and movement: Normal speech and movement present Assessment & Plan Assessment & Plan (1) Right knee pain: Code(s): M25.561 - Pain in right knee Qualifiers: Chronicity: acute Qualified Code(s): M25.561 - Pain in right knee Plan: Ordered Prednisone Continue taking NSAIDs and Acetaminophen. Ice/Hot Rest Ordered Referral to Pain management and Ortho Ordered Xray to r/o Fx. Orders: Referrals Pain Management Referral M25.561 - Pain in right knee Medications: New prednisone 20 mg PO DAILY 5 days 5 tabs 0RF M25.561 - Pain in right knee Changed From cyclobenzaprine 5 mg PO BID PRN 30 tabs 2RF muscle spasm M25.561 - Pain in right knee To cyclobenzaprine 5 mg PO BEDTIME PRN 20 tabs 0RF muscle spasm M25.561 - Pain in right knee Coding Level of Care Code Est Pt Level 4 (65091) Diagnoses Acute pain of right knee M25.561 Chronicity: acute Time Spent (min) 20
[2025-03-06 10:00] VITALS: BP 136/80; PULSE 76; O2SAT 97; BMI 34.2
== END 2025-03-06 10:51 | disposition home or self-care (01) ==
PROVIDERS: PCP Internal Medicine; Visit Provider Nurse Practitioner Family
DX: M25.561 Pain in right knee (principal)

== ENCOUNTER 2025-03-06 09:05 | Outpatient (REF) | payer OTHER, SELFPAY ==
--- NOTE | ~2025-03-06 | XR_ITS ---
EXAMINATION: XR KNEE 4 OR MORE VIEWS RIGHT HISTORY: M25.561 - Pain in right knee COMPARISON: There are no prior studies available for comparison. FINDINGS: Four views of the right knee are submitted. Osseous mineralization is normal. There is no fracture or dislocation. There is minimal narrowing of the medial and patellofemoral compartments. The soft tissues are unremarkable. There is no joint effusion. XR/XR knee RT 4V IMPRESSION: Minimal narrowing of the medial and patellofemoral compartments. Electronically signed by: Solo Bell MD 03/06/2025 11:11 AM EDT
== END 2025-03-06 09:06 | disposition home or self-care (01) ==
LOC: HO.HMGCX 09:05
PROVIDERS: PCP Internal Medicine; Visit Provider Nurse Practitioner Family
DX: M25.561 Pain in right knee (principal)
CPT/HCPCS: 73564

== ENCOUNTER → 2025-03-06 10:52 | Outpatient (BNV) | payer OTHER, SELFPAY | PROVIDERS: PCP Internal Medicine; Visit Provider Radiology Diagnostic Radiology | DX: M25.561 Pain in right knee (principal) | CPT/HCPCS: 73564 ==

== ENCOUNTER 2025-03-15 09:55 | Outpatient (AMB) | payer OTHER, SELFPAY ==
--- NOTE | 2025-03-15 10:00 | A.OFFVIS_ITS ---
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 The knee pain is localized to the medial side and includes a clicking sound and tenderness upon touch. It is exacerbated by movements such as kneeling and climbing stairs, and relieved slightly by ibuprofen. Notably, this patient has hypertension and experienced a recent event where elevated blood pressure led to an ER visit. Prior cortisone injection by Dr. David provided notable relief for shoulder pain. Home exercises with resistance bands have been adapted for current knee pain. 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 - Analgesia: Ibuprofen 800 mg is being used; pain persists. - Adverse Effects: Muscle relaxer for shoulder causes morning drowsiness, not effective for knee. - Activities of Daily Living: Impaired due to increased knee instability and pain. - Aberrant Drug-Related Behaviors: None reported. ON LICENSE OF [facility] Medical History (Updated 03/06/25 @ 10:46 by Gabi Corbin NP) Right knee pain RBBB Chest pain Lumbar degenerative disc disease Pure hypercholesterolemia Benign essential hypertension Cervical disc disease Overweight (BMI 25.0-29.9) Allergic rhinitis Occipital headache Achilles tendinitis Rotator cuff arthropathy of left shoulder Surgical History History of colonoscopy Family History Father CVD (cardiovascular disease) Mother Diabetes Brain tumor Social History Housing: House Alcohol intake: current Alcohol intake frequency: holidays/special occasions only Patient Tobacco Use Status: Former Tobacco user e-Cigarette/Vaping Use: Never Used Second Hand Smoke Exposure: Yes service: No Current occupational status: employed Current occupational exposures/hazards: No Cognitive needs: No Hearing needs: No Vision needs: Yes Review of Systems Const Details: - Musculoskeletal: Reports right knee pain, instability; denies back pain. - Cardiovascular: Reports history of high blood pressure; denies current symptoms. - Neurological: Denies new neurological symptoms; past stress test done. - Gastrointestinal: Denies any related symptoms. Physical Exam Vital Signs: Last Vital Signs Pulse 97 03/15/25 10:01 Resp 15 03/15/25 10:01 BP 137/87 03/15/25 10:01 Pulse Ox 92 03/15/25 10:01 Oxygen Delivery Method Room Air 03/15/25 10:01 BMI result Body Mass Index 33.4 General: awake, alert, oriented. Answers questions appropriately. Fully engaged in examination. Skin: warm, dry, intact HEENT: Normocephalic. Hearing intact. Cardiac: External chest normal in appearance. Respiratory: No cough, audible wheezing or stridor. Abdomen: without gross distension. MS: No obvious swelling or deformities. Able to transition from sit to stand unassisted. Ambulates with bilaterally normal heel strike and toe off Right knee: Tenderness over medial side. Unable to fully flex or extend secondary to pain. Pain posteriorly with extension. Neurological: Oriented to person, place, time and situation. Thought process intact. No gait abnormalities appreciated. Psychiatric: Appropriate mood and affect. Good judgment and insight. Results Reviewed Results Reviewed: 03/06/25 XR/XR knee RT 4V FINDINGS: Four views of the right knee are submitted. Osseous mineralization is normal. There is no fracture or dislocation. There is minimal narrowing of the medial and patellofemoral compartments. The soft tissues are unremarkable. There is no joint effusion. IMPRESSION: Minimal narrowing of the medial and patellofemoral compartments. Assessment & Plan Assessment & Plan (1) Right knee pain: Code(s): M25.561 - Pain in right knee Category: Medical Qualifiers: Chronicity: acute Qualified Code(s): M25.561 - Pain in right knee Plan I will focus on the management of the patient's right knee pain. Pending cardiology's clearance, we will consider a steroid injection for symptomatic relief. The risks of increased blood pressure and infection were discussed, and we will ensure cardiology approves this intervention after reviewing the recent stress test and echocardiogram results. Until then, home exercises with bands will continue, and symptom progression will be monitored closely. I discussed with the patient the potential for corticosteroid injection pending cardiology's clearance due to recent elevated blood pressures at cardiology workup/testing. The benefits of reduced inflammation and pain versus the risks, including increased BP and potential complications with cardiovascular studies were outlined. The patient understood the need for cardiology's approval to avoid complications. We agreed on home exercises and symptom monitoring, and I requested he contact my office post-cardiology follow-up. We will schedule for fluoroscopy guided right intra-articular knee injection with local anesthetic pending cardiology clearance. Patient was informed and verbally consented to the use of an ambient scribe for clinic note documentation during this visit. Patient Instructions: - Continue using ibuprofen for knee pain as needed. - Perform home exercises with resistance bands regularly. - Monitor blood pressure at home. - Follow up with cardiology on Thursday and inform my office of the results. - Avoid activities that exacerbate knee pain, such as stair climbing. - Use pillow support during sleep to alleviate discomfort. Coding Level of Care Code Est Pt Level 3 (46993) Complex EM visit Add On G2211 Diagnoses Acute pain of right knee M25.561 Chronicity: acute
[2025-03-15 10:01] VITALS: BP 137/87; PULSE 97; RESP 15; O2SAT 92; BMI 33.4
--- OUTSIDE RECORDS SUMMARY | 2025-03-15 11:01 | XMS_ITS | Patient Health Record ---
Author Organization [facility] Nenaarely Ramirez Address [address] [place] [address] Care Team Providers Care Biotechnologist Name Role Phone Deep Ayon MDneth Primary Care Provider Sonam Johnson Unavailable [phone] Reason For Referral No Information Medications Medication [...] Treatment Pending Test Test Name Order Date ,[id number] TENDON SHEATH/LIGAMENT 1 10/10/2019 Insurance Providers Payer Name Payer Address Payer Phone Subscriber Number Group Number Insured Name Patient Relationship to Insured Coverage Start Date Coverage End Date [facility] [address] [place] [address] [id number] Larry Thibodeaux Self - patient is the insured Medical (General) History Surgical History Surgery Date(Month/Year)
== END 2025-03-15 10:40 | disposition home or self-care (01) ==
LOC: HO.PMC 09:56
PROVIDERS: PCP Internal Medicine; Referring Provider Nurse Practitioner Family; Visit Provider Registered Nurse Emergency
DX: M25.561 Pain in right knee (principal)
CPT/HCPCS: 99213; G2211

== ENCOUNTER 2025-03-16 10:20 | Outpatient (REF) | payer OTHER, SELFPAY ==
--- OUTSIDE RECORDS SUMMARY | 2025-03-16 11:58 | XMS_ITS | Patient Health Record ---
Author Organization [facility] Nenaarely Ramirez Address [address] [place] [address] Care Team Providers Care Analysis Tester Name Role Phone Deep Ayon MDneth Primary Care Provider Sonam Johnson Unavailable [phone] Reason For Referral No Information Medications Medication [...] Treatment Pending Test Test Name Order Date ,[id number] TENDON SHEATH/LIGAMENT 1 10/10/2019 Insurance Providers Payer Name Payer Address Payer Phone Subscriber Number Group Number Insured Name Patient Relationship to Insured Coverage Start Date Coverage End Date [facility] [address] [place] [address] [phone] [id number] Larry Thibodeaux Self - patient is the insured Medical (General) History Surgical History Surgery Date(Month/Year)
[2025-03-16 13:15] LABS: Appearance Urine Clear; Color Urine Yellow; Glucose Urine UA Negative (Negative); Leukocyte Esterase Urine Negative (Negative); Nitrite Urine Negative (Negative); PH 5.5 (5.0-9.0); Urine Blood Negative (Negative); Urine Ketones Negative (Negative); Urine Protein Negative (Neg-Trace)
[2025-03-16 13:21] LABS: MANUAL DIFF FLAG NO
[2025-03-16 13:23] LABS: Basophils Absolute Auto 0.1 X10*3/uL (0.0-0.2); Basophils Percent Auto 0.8 % (0-2); Eosinophils Absolute Auto 0.3 X10*3/uL (0.0-0.4); Eosinophils Percent Auto 3.3 % (0-4); Hematocrit 45.3 % (42.0-52.0); Hemoglobin 15.7 g/dl (14.0-18.0); Imm Gran Abs Auto 0.06 X10*3/uL (0.00-0.03); Imm Gran Pct Auto 0.7 % (0.0-0.4); Lymphocytes Absolute Auto 2.8 X10*3/uL (1.2-4.9); Lymphocytes Percent Auto 33.5 % (20-40); Mean Corpuscular HGB Conc 34.7 g/dl (31.0-36.0); Mean Corpuscular Volume 92.3 fL (80.0-98.0); Mean Platelet Volume 11.3 fL (9.4-12.4); Monocytes Absolute Auto 0.7 X10*3/uL (0.1-1.2); Neutrophils Absolute Auto 4.4 x10*3/uL (2.0-8.3); Neutrophils Percent Auto 53.7 % (45-73); Platelet Count 217 X10*3/uL (160-400); Red Blood Count 4.91 X10*6/uL (4.60-5.80); Red Cell Distribution Width 12.6 % (11.0-16.0); White Blood Count 8.3 X10*3/uL (4.8-10.8)
[2025-03-16 13:44] LABS: Alanine Aminotransferase 67 U/L (0-40); Albumin Level 4.4 g/dL (3.5-5.0); Alkaline Phosphatase 76 U/L (39-117); Anion Gap 11 (12-20); Aspartate Amino Transferase 40 U/L (5-37); Bilirubin Total 0.8 mg/dL (0.0-1.0); Blood Urea Nitrogen 18 mg/dL (9-16); Calcium 8.9 mg/dL (8.4-10.2); Carbon Dioxide 26 mmol/L (22-29); Chloride 107 mmol/L (96-108); Cholesterol 175 mg/dL (<200); Estimated Glomerular Filt Rate > 60; Glucose Fasting 116 mg/dL (60-99); HDL Cholesterol 43 mg/dL (>40); LDL Cholesterol Calculated 94 mg/dL (<100); Potassium 4.3 mmol/L (3.3-5.1); Sodium 140 mmol/L (135-145); Total Protein 6.7 g/dL (6.5-8.0); Triglycerides 192 mg/dL (<150)
[2025-03-16 13:53] LABS: Prostate Specific Antigen Scr 0.28 ng/mL (<0.05-4.0)
[2025-03-16 14:04] LABS: TSH reflex Free T4 0.82 uIU/mL (0.32-4.0); Vitamin D 25-OH Total 72.5 ng/mL (>30)
== END 2025-03-16 10:21 | disposition home or self-care (01) ==
LOC: HO.HMGCLDS 10:20
PROVIDERS: PCP Internal Medicine; Visit Provider Internal Medicine
DX: Z00.00 Encounter for general adult medical examination without abnormal findings (principal); D64.9 Anemia, unspecified; E78.00 Pure hypercholesterolemia, unspecified; E55.9 Vitamin D deficiency, unspecified; R30.0 Dysuria; Z12.5 Encounter for screening for malignant neoplasm of prostate
CPT/HCPCS: 36415; 80053; 80061; 81003; 82306; 84153; 84443; 85025

== ENCOUNTER 2025-03-30 08:31 | Outpatient (AMB) | payer OTHER, SELFPAY ==
--- OUTSIDE RECORDS SUMMARY | 2025-03-22 07:00 | XMS_ITS ---
Author Organization [facility] Address [address] [place] [address] Care Team Providers Care Recreation Center Director Name Role Phone Gabo WARD, [place] Primary Care Provider Burke London Jr Unavailable [phone] Allergies No Known Allergies REASON FOR VISIT Patient presents today for a COLON SCREENING Medications Medication SIG (Take, Route, Frequency, Duration) Notes Start Date End Date Status amLODIPine Besylate 10 MG Oral for 30 Days Active Ibuprofen 200 MG 1 tablet with food o r milk as needed Orally prn Active Metoprolol Succinate ER 50 MG Oral for 30 Days Active amLODIPine Besylate 10 MG TAKE 1 TABLET BY MOUTH DAILY Oral for 30 Days Active Loratadine 10 MG TAKE 1 TABLET BY MIGUEL TH EVERY DAY NEEDED FOR ALLERGY Oral for 30 Days Active Social History Tobacco Use: Social History Observation Description Date Details (start date - stop date) Former Smoker NA - NA Tobacco Use/Smoking Question Answer Notes Patient is a former smoker How long has it been since you last smoked? > 10 years Alcohol Screen Question Answer Notes Did you have a drink contain ing alcohol in the past year? Yes How often did you have a dri nk containing alcohol in the past year? 2 to 4 times a month (2 points) How many drinks did you have on a typical day when you were drinking in the past year? 1 or 2 drinks (0 point) How often did you have 6 or more drinks on one occasion in the past year? 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 Vital Signs Temperature 98.7 degrees Fahrenheit 06/18/20 25 Blood pressure systolic 001 mm Hg 03/22/20 25 Blood pressure diastolic 01 mm Hg 025 Height 68 in 03/22/2025 Weight 226.4 lbs 03/22/2025 BMI 34.42 kg/m2 03/22/2025 Encounters Encounter Location Date Provider Diagnosis [facility] [address] [place] [address] 03/22/2025 Burke Stewart Jr Kent esophagus K22.70 and Encounter for screening for malignant neoplasm of colon Z12.11 Assessments Encounter Date Diagnosis (ICD Code) Assessment Notes Treatment Notes Treatment Clinical Notes Section Notes 03/22/2025 Kent esophagus (ICD-10 - K22.70) 03/22/2025 Encounter for screening for malignant neoplasm of colon (ICD-10 - Z12.11) Plan Of Treatment Future Test Test Name Order Date UPPER GI ENDOSCOPY 03/22/2025 COLONOSCOPY 03/22/2025 Next Appt Details Provider Name:Burke hooper Jr, 05/05/2025 08:30:00 AM, [address] [place] [address], [id number], Progress Notes * ABHIJIT ALEMANDOB: 0 (55 yo M)Acc No.[id number]:03/22/2025 Progress Notes Patient: ABHIJIT GOMEZ Provider: Mohinder Stewart MD :1970 A ge:55 Y S ex:Male Date:03/22/2025 Address:[address] [place], [place] [id number] Pcp:Valeriy Ayon MD Subjective: * Chief Complaints: * 1 . Patient presents today for a COLON SCREENING. * Medical History: A rthritis, High blood pressure. * Family History: F ather: , diagnosed with Heart disease. M other: , diagnosed with HTN (hypertension). S iblings: , brother dx with colon cancer in his late 30's, diagnosed with Colon polyps, Colon cancer. No family history of liver cancer. Older brother had of colon cancer. * Social History: T obacco Use: T obacco Use/Smoking P atient is a f ormer smoker, H ow long has it been since you last smoked? > 10 years. D rugs/Alcohol: A lcohol Screen D id you have a drink containing alcohol in the past year? Y es, H ow often did you have a drink containing alcohol in the past year? 2 to 4 times a month (2 points), H ow many drinks did you have on a typical day when you were drinking in the past year??1 or 2 drinks (0 point), H ow often did you have 6 or more drinks on one occasion in the past year? N ever (0 point), P oints 2 , I nterpretation N egative. M iscellaneous: M arital status: . 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 * Medications: T aking Ibuprofen 200 MG Tablet 1 tablet with food or milk as needed Orally prn , Taking amLODIPine Besylate 10 MG Tablet Oral , Taking Loratadine 10 MG Tablet TAKE 1 TABLET BY MOUTH EVERY DAY NEEDED FOR ALLERGY Oral , Taking amLODIPine Besylate 10 MG Tablet TAKE 1 TABLET BY MOUTH DAILY Oral , Taking Metoprolol Succinate ER 50 MG Tablet Extended Release 24 Hour Oral , Discontinued Omeprazole 20 MG Tablet Delayed Release 1 tablet Orally Twice a day , Discontinued Clarithromycin 500 MG Tablet 1 tablet Orally every 12 hrs , Discontinued Amoxicillin 500 MG Tablet 2 tablets Orally Twice a day , Discontinued predniSONE 20 MG Tablet TAKE 1 TABLET BY MOUTH DAILY FOR 5 DAYS Oral , Discontinued MiraLax (colon prep) 8.3 ounce ((238) grams mixed with Gatorade or Crystal Light orally begin at 5:00 p.m. the day before the procedure , Medication List reviewed and reconciled with the patient * Allergies: N .K.D.A. Objective: * Vitals: W t:226.4lbs, Ht: 68 in, BMI:34.42Index, BP:001/01mm Hg, Temp:98.7, Wt-k.69. Assessment: * Assessment: 1. 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 E ncounter for screening for malignant neoplasm of colon - Z12.11 Plan: * Treatment: 2.?Encounter for screening for malignant neoplasm of colon?Procedure: COLONOSCOPY (Ordered for 03/22/2025)* sched for 05/05/25 at 8:30 amm acmiralax * Preventive Medicine: Counseling: C are goal follow-up plan: A liane Normal BMI Follow-up D ietary management education, guidance, and counseling, B ND management provided Y es. * * The named appointment provid er may or may not be the originator of this progress note, and it is not deemed complete until electronically signed by the appointment provider. Sign off status: Pending * Provider: Mohinder Stewart MD Date: 0 03/22/2025 Generated for Lalo joshi/Pinky/Jacqueitting on: 03/30/2025 08:54 AM EDT
--- NOTE | 2025-03-30 08:35 | A.OFFVIS_ITS ---
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 Required: No Allergies hydrocodone Adverse Reaction (Intermediate, Verified 03/30/25 08:35) nausea,dizziness PFSH Medical History (Updated 03/30/25 @ 08:42 by Colby Donnelly MD) Right knee pain RBBB Chest pain Lumbar degenerative disc disease Pure hypercholesterolemia Benign essential hypertension Cervical disc disease Overweight (BMI 25.0-29.9) Allergic rhinitis Occipital headache Achilles tendinitis Rotator cuff arthropathy of left shoulder Surgical History History of colonoscopy Family History Father CVD (cardiovascular disease) Mother Diabetes Brain tumor Social History Housing: House Alcohol intake: current Alcohol intake frequency: holidays/special occasions only Patient Tobacco Use Status: Former Tobacco user e-Cigarette/Vaping Use: Never Used Second Hand Smoke Exposure: Yes service: No Current occupational status: employed Current occupational exposures/hazards: No Cognitive needs: No Hearing needs: No Vision needs: Yes Physical Exam Vital Signs: Last Vital Signs Pulse 93 03/30/25 08:36 Resp 18 03/30/25 08:36 BP 141/92 H 03/30/25 08:36 Pulse Ox 100 03/30/25 08:36 Oxygen Delivery Method Room Air 03/30/25 08:36 BMI result Body Mass Index 33.9 Office Procedures AMB Joint Injection/Aspiration Joint Injection/Aspiration Primary Site: right knee Prep: site was prepped using aseptic technique Injected: 40 mg of Approach Used: anteromedial Procedure: The patient tolerated the procedure well Coding 98691 - Large joint Procedure code (CPT) selection complete Office Meds Kenalog 40 mg/mL suspension for injection Performing Provider: Colby Donnelly MD Performing Location: [facility] Administered by: Colby Donnelly MD on 03/30/25 08:58 Dose Route Admin Location Dispensed Lot Number Expiration Date NDC Pump Installer 40 mg intra-articular 1 mL [id number] 09/03/26 Total Dispensed Waste 1 mL 0 % Comments: After obtaining informed consent the patient was positioned sitting on the examination table. The risks and benefits were explained to the patient. Laterality was changed. The patient was initially intended to have bilateral knee injection however after my explanation about side effects of the steroids he chose to go for 1 right-sided injection only today. He will schedule appointment for the left knee in 1 month from now. The anterior medial portion of the right knee was prepped with ChloraPrep sterilely obtained Kenalog 40 mg mixed with ropivacaine 0.5% 4 mL was in the syringe. The needle was advanced to the posterior central from anterior medial positioned in the retropatellar space. Aspiration was performed there were no blood and no synovial fluid. After that injection of the ropivacaine as above mixed with Kenalog was performed. The needle was removed Band-Aid was applied. The patient tolerated the procedure well. No side effects were observed. Assessment & Plan Assessment & Plan (1) Right knee pain: Code(s): M25.561 - Pain in right knee Category: Medical Qualifiers: Chronicity: acute Qualified Code(s): M25.561 - Pain in right knee Plan Knee injection was performed as below and above. The patient chose to have right-sided injection. He will be scheduled for the left side injection in the near future. Orders: Orders AMB Joint Injection/Aspiration Today M25.561 - Pain in right knee Coding Level of Care Code Procedure Only Diagnoses Acute pain of right knee M25.561 Chronicity: acute CPT Codes Coding - 12425 Large joint: 65090 - Large joint ([id number])
[2025-03-30 08:36] VITALS: BP 141/92; PULSE 93; RESP 18; O2SAT 100; BMI 33.9
== END 2025-03-30 08:53 | disposition home or self-care (01) ==
LOC: HO.PMC 08:31
PROVIDERS: PCP Internal Medicine; Visit Provider Anesthesiology
DX: M25.561 Pain in right knee (principal)
CPT/HCPCS: 20610

== ENCOUNTER → 2025-03-30 08:31 | Outpatient (BNVA) | payer OTHER, SELFPAY | PROVIDERS: PCP Internal Medicine; Visit Provider Anesthesiology | DX: M25.561 Pain in right knee (principal) | CPT/HCPCS: 20610; J3300 ==

== ENCOUNTER 2025-04-20 10:58 | Outpatient (AMB) | payer OTHER, SELFPAY ==
[2025-04-20 11:00] VITALS: BP 120/94; PULSE 89; O2SAT 95; BMI 33.5
--- NOTE | 2025-04-20 11:00 | A.OFFPC_ITS ---
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 Accompanied by: Self / Same As Patient Allergies hydrocodone Adverse Reaction (Intermediate, Verified 04/20/25 11:18) nausea,dizziness Medication List - Last Reconciled 04/20/25 by Valeriy Ayon MD amlodipine 10 mg PO DAILY cyclobenzaprine 5 mg PO BEDTIME PRN fluticasone propionate 50 mcg/actuation 1 spray intranasal BID ibuprofen 800 mg PO TID PRN loratadine (Allergy Relief (loratadine)) 10 mg PO DAILY PRN metoprolol succinate ER 50 mg PO DAILY Tobacco use date assessed: 04/20/25 Dental Screening Dental Screen Date: 04/20/25 Did you have a dental visit in the last 12 months?: No Did you have a dental problem in the last 6 months where you did not have access to dental care?: No Was dental information given to patient?: Patient has dentist HPI pe HPI Details Patient comes in today for his annual physical examination States that he feels okay He denies any headaches or dizziness Denies any chest pains, no SOB No nausea/vomiting, no abdominal pain No change in bowel habits noted Denies any acute urinary symptoms He had cortisone injection into his right knee from pain management last month - states that the injection helped a lot with his knee pain He had his follow up labs done last month - to discuss his results He had his screening colonoscopy last done with Dr. Stewart in November 2019 and he is now due for repeat colonoscopy (5 year recall due to his family Hx) [facility] Medical History Right knee pain RBBB Chest pain Lumbar degenerative disc disease Pure hypercholesterolemia Benign essential hypertension Cervical disc disease Overweight (BMI 25.0-29.9) Allergic rhinitis Occipital headache Achilles tendinitis Rotator cuff arthropathy of left shoulder Surgical History History of colonoscopy Family History Father CVD (cardiovascular disease) Mother Diabetes Brain tumor Social History Housing: House Alcohol intake: current Alcohol intake frequency: holidays/special occasions only Patient Tobacco Use Status: Former Tobacco user e-Cigarette/Vaping Use: Never Used Second Hand Smoke Exposure: Yes service: No Current occupational status: employed Current occupational exposures/hazards: No Cognitive needs: No Hearing needs: No Vision needs: Yes Questionnaire PHQ-9 Over the last 2 weeks, how often have you been bothered by any of the following problems? 1. Little interest or pleasure in doing things: nearly every day 2. Feeling down, depressed, or hopeless: nearly every day 3. Trouble falling or staying asleep, or sleeping too much: nearly every day 4. Feeling tired or having little energy: more than half the days 5. Poor appetite or overeating: not at all 6. Feeling bad about yourself - or that you are a failure or have let yourself or your family down: not at all 7. Trouble concentrating on things, such as reading the newspaper or watching television: several days 8. Moving or speaking so slowly that other people could have noticed. Or the opposite - being so fidgety or restless that you have been moving around a lot more than usual: not at all 9. Thoughts that you would be better off or of hurting yourself in some way: not at all Total score: 12 Depression Screening Interpretation: Positive Depression Screening Follow-up: Follow-up Visit Requested Depression Screening Done: Yes 32359 - PHQ-9 Billing: Yes Source: Developed by Drs. Solo Bach, Payton Lundy, Ryan Vallejo and colleagues, with an educational norris from [employer]. Thrive Questionnaire Date Thrive assessed: 04/20/25 I am a: Patient What is your living situation today?: I have a steady place to live Within the past 12 months, did the food you bought not last and you didn't have the money to get more?: Never true Within the past 12 months, did you worry whether your food would run out before you got money to buy more?: I choose not to answer this question Do you have trouble paying for medicines?: I choose not to answer this question Do you have trouble getting transportation to medical appointments?: I choose not to answer this question Do you have trouble paying your heating and electricity bill?: I choose not to answer this question Do you have trouble taking care of your child, family member or friend?: I choose not to answer this question Do you have trouble with day-to-day activities such as bathing, preparing meals, shopping, managing finances, etc.?: I choose not to answer this question Are you currently unemployed and looking for a job?: I choose not to answer this question Are you interested in more education?: I choose not to answer this question Please select the resources that you would like help with: Transportation and None Currently or been in a relationship where the following occur: I choose not to answer THRIVE Score: 0 AUDIT C Alcohol Use Questionnaire (AUDIT-C) 1. How often do you have a drink containing alcohol?: 2-3 times a week 2. How many drinks containing alcohol do you have on a typical day when you are drinking?: 1 or 2 3. How often do you have six or more drinks on one occasion?: Never Total Score: 3 Score Reviewed/Action Taken: Yes DYLAN-7 AMB Questionnaire DYLAN-7 Date DYLAN - 7 assessed: 04/20/25 Feeling nervous, anxious, or on edge: 0 = Not at all Not being able to stop or control worryin = Not at all Worrying too much about different things: 0 = Not at all Trouble relaxin = Not at all Being so restless that it is hard to sit still: 0 = Not at all Becoming easily annoyed or irritable: 0 = Not at all Feeling afraid as if something awful might happen: 0 = Not at all Total DYLAN-7 score (0-4 normal; 5-9 mild; 10-14 moderate; 15-21 severe): 0 Source: Developed by Drs. Solo Bach, Payton Lundy, Ryan Vallejo and colleagues, with an educational norris from [employer]. Review of Systems Const Denies chills, Denies fatigue, Denies fever(s), Denies headache(s), Denies malaise and Denies weakness Eyes Denies blurry vision, Denies change in vision, Denies irritation and Denies itchy eyes ENT Denies dysphagia, Denies dizziness, Denies otalgia, Denies headache(s), Denies nasal congestion, Reports neck pain (chronic), Denies odynophagia and Denies sore throat Card Denies chest pain, Denies rapid heart rate, Denies irregular heart rhythm, Denies palpitations and Denies dyspnea Resp Denies chest congestion, Denies cough, Denies dyspnea and Denies wheezing GI Denies abdominal pain, Denies bloating, Denies constipation, Denies dysphagia, Denies heartburn, Denies diarrhea, Denies nausea, Denies odynophagia and Denies vomiting Denies hematuria, Denies difficulty urinating, Denies dysuria, Denies urinary frequency and Denies urinary urgency Musc Denies back pain, Reports arthralgias (involving primarily the right knee and the left shoulder), Denies joint swelling, Denies muscle weakness and Reports neck pain (chronic) Skin/Breast Denies change in pigmentation, Denies lesions, Denies rash and Denies unusual bruising Neuro Denies dizziness, Denies headache(s), Denies paresthesias and Denies weakness Endo Denies fatigue and Denies palpitations Aller/Immun Denies itchy eyes and Denies wheezing Physical exam (Primary Care) Vital Signs: Last Vital Signs Pulse 89 04/20/25 11:00 BP 120/94 H 04/20/25 11:00 Pulse Ox 95 04/20/25 11:00 Oxygen Delivery Method Room Air 04/20/25 11:00 BMI result Body Mass Index 33.5 Tobacco/Smoking Status: Tobacco use Status Tobacco use date assessed 04/20/25 04/20/25 11:05 Patient Tobacco Use Status Former Tobacco user 04/20/25 11:05 e-Cigarette/Vaping Use Never Used 04/20/25 11:05 PHQ-9: PHQ-9 Score PHQ-9: Total score 12 04/20/25 11:31 Depression Screening Interpretation: Positive Depression Screening Follow-up: Follow-up Visit Requested Thrive Assessment: Date of Thrive Assessment Date Thrive assessed 04/20/25 04/20/25 11:05 Currently or been in a relationship where the following occur: I choose not to answer Const General: no acute distress, alert and awake Orientation/consciousness: patient oriented x3 HENMT Head: Yes normocephalic and Yes atraumatic Ears: external ears normal, TM's normal bilaterally and EAC's normal General nose exam: No nasal discharge present Face and sinus: Yes normal facial exam and Yes sinuses nontender Teeth and gingiva: dentition normal Throat: Yes posterior oropharynx normal and Yes tonsils normal (no TP congestion) Eyes Eyelids: Yes eyelids normal Conjunctivae: conjunctivae normal Pupils: Equal, round and reactive pupils present EOM: EOMs intact bilaterally Neck Neck: No lymphadenopathy and Yes tender Thyroid: Thyroid normal Resp Auscultation: clear to auscultation bilaterally, no rales and no wheezes Cardio Rate: regular rate Rhythm: regular rhythm Heart sounds: no murmurs GI Palpation (GI): Soft to palpation, nontender and No hepatosplenomegaly present Auscultation: normal bowel sounds General: Yes no CVA tenderness Back/Spine/Pelvis Back: no CVA tenderness Cervical Spine: cervical muscular tenderness Thoracic/Lumbar Spine: No lumbar spinal tenderness Skin Lesions: no lesions Rashes: no rashes Neuro General: patient oriented x3, moves all extremities, no focal motor deficits and CN's II-XI intact bilaterally Cranial nerves: Yes Equal, round and reactive pupils present Cognition (Neuro): normal cognition Gait exam (Neuro): Normal gait present Extrem General: Yes no clubbing, cyanosis or edema Left upper extremity: shoulder/upper arm Details: tenderness Location: of the A- C joint Right lower extremity: knee Details: tenderness Location: of the pre-patellar area; no swelling Results Reviewed Results Reviewed: Laboratory Tests 03/16/25 10:38 WBC 8.3 Hgb 15.7 Hct 45.3 Plt Count 217 Sodium 140 Potassium 4.3 Creatinine 0.87 Estimated GFR > 60 Fasting Glucose 116 H Calcium 8.9 AST 40 H ALT 67 H Triglycerides 192 H Cholesterol 175 LDL Cholesterol, Calc 94 HDL Cholesterol 43 PSA Screen 0.28 25-OH Vitamin D Total 72.5 TSH 0.82 Ur Specific [place] 1.020 Urine Protein Negative Urine Glucose (UA) Negative Urine Blood Negative Urine Nitrite Negative Ur Leukocyte Esterase Negative Coding Level of Care Code Est Pt Prev Care 40-64y(46060) Diagnoses Annual physical exam Z00.00 Pure hypercholesterolemia E78.00 Benign essential hypertension I10 Impaired fasting glucose R73.01 Elevated LFTs R79.89 Chest pain, unspecified type R07.9 Chest pain type: unspecified Allergic rhinitis, unspecified seasonality, unspecified trigger J30.9 Allergic rhinitis seasonality: unspecified Allergic rhinitis trigger: unspecified Rotator cuff arthropathy of left shoulder M12.812 Cervical disc disease M50.90 Degeneration of intervertebral disc of lumbar region with discogenic back pain M51.360 Disc-related pain type: discogenic back pain only Insomnia, unspecified type G47.00 Insomnia type: unspecified Obesity (BMI 30-39.9) E66.9 Additional Codes PHQ-9 - 59862 - PHQ-9 Billing: Yes ([id number]) Assessment & Plan Assessment & Plan (1) Annual physical exam: Code(s): Z00.00 - Encounter for general adult medical examination without abnormal findings Category: Medical Plan: Results of his labs done last month reviewed and discussed with patient He had his screening colonoscopy last done with Dr. Stewart in November 2019 and he is now due for repeat colonoscopy (5 year recall due to his family Hx) - he is now scheduled for his repeat colonoscopy and EGD next week on 05/05/2025 (2) Pure hypercholesterolemia: Code(s): E78.00 - Pure hypercholesterolemia, unspecified Category: Medical Plan: Reinforced low cholesterol diet His cholesterol levels have all improved slightly from last year on his recent labs although his serum TG is still elevated at 192 mg/dl Will recheck his fasting lipids and labs in 4 months for follow up (3) Benign essential hypertension: Code(s): I10 - Essential (primary) hypertension Category: Medical Plan: Reinforced low sodium diet - goal is systolic BP of 120 mm or less Continue Amlodipine 10 mg QD and Metoprolol ER 50 mg QD Patient is reminded to continue monitoring his blood pressure regularly (4) Impaired fasting glucose: Code(s): R73.01 - Impaired fasting glucose Category: Medical Plan: His FBS was elevated at 116 mg/dl on his recent labs; in-office HgbA1c today is at 6.3% (HgbA1c was previously at 5.9% a few months ago) Reinforced low calorie/low carb diet Will recheck his FBS and his HgbA1c again in 4 months for follow up (5) Elevated LFTs: Code(s): R79.89 - Other specified abnormal findings of blood chemistry Category: Medical Plan: His LFTs are still elevated on his recent labs although they are lower than they were a few months ago Have again cautioned him to avoid drinking too much alcohol and also avoid taking a lot of Tylenol-containing medications; advised also that losing weight should help with his LFTs back Will recheck his LFTs in a few months for follow up - have discussed with victor manuelora jn that if his LFTs do not improve significantly over the next couple of months, we should have him go get an abdominal US for further evaluation (6) Chest pain: Code(s): R07.9 - Chest pain, unspecified Category: Medical Qualifiers: Chest pain type: unspecified Qualified Code(s): R07.9 - Chest pain, unspecified Plan: States that his previous recurrent left-sided chest pains were most likely musculoskeletal in etiology He was previously referred to cardiology for further evaluation and was seen by cardiology in [place] a few months ago States that his cardiac work ups all came back negative (7) Allergic rhinitis: Code(s): J30.9 - Allergic rhinitis, unspecified Category: Medical Qualifiers: Allergic rhinitis seasonality: unspecified Allergic rhinitis trigger: unspecified Qualified Code(s): J30.9 - Allergic rhinitis, unspecified Plan: Continue OTC Loratadine 10 mg QD PRN and/or Fluticasone 50 mcg nasal spray QD PRN (8) Rotator cuff arthropathy of left shoulder: Code(s): M12.812 - Other specific arthropathies, not elsewhere classified, left shoulder Category: Medical Plan: Left shoulder MRI done back in May 2022 revealed (+) mild supraspinatus tendinosis that is unchanged from previous with no measurable rotator cuff tendon tear. There is also moderate acromioclavicular osteoarthritis, slightly progressed from previous, with tiny subacromial spurs and (+) subacromial- subdeltoid bursitis, slightly more prominent when compared to the prior MRI. There is also increasing irregular fraying through the anterior and anteroinferior labrum, with (+) small glenohumeral joint effusion noted as well He was referred to physical therapy but he did not complete his sessions as he felt they were too expensive and he is just continuing with the exercise he learned from PT on his own whenever he can Repeat left shoulder MRI was denied by his insurance last year Continue Ibuprofen 800 mg TID PRN and Cyclobenzaprine 5 mg TID PRN Follow up with orthopedics as scheduled (9) Cervical disc disease: Code(s): M50.90 - Cervical disc disorder, unspecified, unspecified cervical region Category: Medical Plan: Patient still has on and off numbness and tingling sensation of the right arm related to his cervical disc disease Cervical MRI done in May 2022 revealed (+) mild lordotic reversal centered at C4-C5 with slight retrolisthesis at C6-C7, with multilevel DDD and spondylosis. There are multilevel posterior disc osteophyte complex asymmetric to the left between C3-C4 and C5-C6 inclusive and disc protrusions at C2-C3, C6-C7 and T2-T3 with mild canal stenosis at C6-C7. No spinal cord impingement. Mild spondylitic myelomalacia on the left suspected at C5-C6. (+) multilevel DJD as discussed above with extensive multilevel bilateral bony neural foraminal stenosis, left more than right and left lateral recess stenosis most apparent at C4-C5 and C5- C6 and to a lesser degree at C3-C4 and C6-C7 Have recommend physical therapy for his neck, especially when his symptoms flare up; patient would like to hold off due to concerns about cost and will call for referral as needed (10) Lumbar degenerative disc disease: Code(s): M51.36 - Other intervertebral disc degeneration, lumbar region Category: Medical Qualifiers: Disc-related pain type: discogenic back pain only Qualified Code(s): M51.360 - Other intervertebral disc degeneration, lumbar region with discogenic back pain only Plan: Reinforced activity and weight-lifting restrictions Lumbar spine x-rays done in November 2023 revealed (+) moderate multilevel lumbar spondylosis with advanced facet arthritis in the [id number] lumbar spine Continue Ibuprofen 800 mg TID PRN and Cyclobenzaprine 5 mg TID PRN (11) Insomnia: Code(s): G47.00 - Insomnia, unspecified Category: Medical Qualifiers: Insomnia type: unspecified Qualified Code(s): G47.00 - Insomnia, unspecified Plan: Sleep hygiene reinforced Continue Trazodone 50 mg Q HS PRN (12) Obesity (BMI 30-39.9): Code(s): E66.9 - Obesity, unspecified Category: Medical Plan: Reinforced diet/exercise as tolerated/lose weight Plan Follow up in 4 months Orders: Orders Lipid Panel 4 Months E78.00 - Pure hypercholesterolemia, unspecified TSH reflex Free T4 4 Months E78.00 - Pure hypercholesterolemia, unspecified UA CC w/rflx Micro + Cult 4 Months R30.0 - Dysuria Liver Fibrosis Pnl 4 Months R79.89 - Other specified abnormal findings of blood chemistry AMB Hemoglobin A1c 04/20/25 Z13.9 - Encounter for screening, unspecified Hemoglobin A1c 4 Months E11.9 - Type 2 diabetes mellitus without complications Complete Blood Count Auto Diff 4 Months D64.9 - Anemia, unspecified Comprehensive [place]. Panel Fast 4 Months E78.00 - Pure hypercholesterolemia, unspecified Vitamin D 25-OH Total 4 Months E55.9 - Vitamin D deficiency, unspecified
--- OUTSIDE RECORDS SUMMARY | 2025-04-20 11:49 | XMS_ITS | Patient Health Record ---
Author Organization [facility] Address [address] [place] [id number] Care Team Providers Care Product Responsibility Liaison Name Role Phone Gabo WARD, [place] Primary Care Provider Burke London Jr Unavailable [phone] Allergies No Known Allergies Reason For Referral No Information Medications Medication SIG (Take, Route, Frequency, Duration) Notes Start Date End Date Status Ibuprofen 200 MG 1 tablet with food o r milk as needed Orally prn Active Metoprolol Succinate ER 50 MG Oral for 30 Days Active amLODIPine Besylate 10 MG TAKE 1 TABLET BY MOUTH DAILY Oral for 30 Days Active Loratadine 10 MG TAKE 1 TABLET BY MIGUEL TH EVERY DAY NEEDED FOR ALLERGY Oral for 30 Days Active amLODIPine Besylate 10 MG Oral for 30 Days Active Immunizations Vaccine Route Administration Date Status Comme nts Influenza Unknown 07/26/2024 Administered Influenza Unknown 08/10/2019 Refused Social History Tobacco Use: Social History Observation [...] Problem Status W/U Status Risk Notes Problem Screening for malignant neoplasm of colon (173722703) Encounter for screening for malignant neoplasm of colon (Z12.11) Active confirmed Problem [id number] Change in bowel habits (R19.4) Active confirmed Problem 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 Problem [id number] GERD without esophagitis (K21.9) Active confirmed Vital Signs Temperature 98.7 degrees Fahrenheit 03/22/2025 Blood pressure diastolic 01 mm Hg 03/22/2025 Height 68 in 03/22/2025 Blood pressure systolic 001 mm Hg 03/22/2025 Weight 226.4 lbs 03/22/2025 BMI 34.42 kg/m2 03/22/2025 Encounters Encounter Location Date Provider Diagnosis [facility] [address] [facility] [address] [place] [id number] 03/22/2025 Burke Stewart Jr Kent esophagus K22.70 and Encounter for screening for malignant neoplasm of colon Z12.11 Assessments Encounter Date Diagnosis (ICD Code) Assessment Notes Treatment Notes Treatment Clinical Notes Section Notes 03/22/2025 Encounter for screening for malignant neoplasm of colon (ICD-10 - Z12.11) We discussed Kent's esophagus today. We discussed treatment with proton pump inhibitors. He will undergo endoscopy for follow-up. At that time biopsies will be obtained to confirm eradication of his H. pylori infection and assess his Kent's esophagus. He is due for colorectal cancer screening. This will be arranged. He understands risks and benefits of endoscopy and colonoscopy and agrees to proceed. 03/22/2025 Kent esophagus (ICD-10 - K22.70) We discussed Kent's esophagus today. We discussed treatment with proton pump inhibitors. He will undergo endoscopy for follow-up. At that time biopsies will be obtained to confirm eradication of his H. pylori infection and assess his Ketn's esophagus. He is due for colorectal cancer screening. This will be arranged. He understands risks and benefits of endoscopy and colonoscopy and agrees to proceed. Plan Of Treatment Future Test Test Name Order Date UPPER GI ENDOSCOPY 08/10/2019 COLONOSCOPY 08/10/2019 UPPER GI ENDOSCOPY 03/22/2025 COLONOSCOPY 03/22/2025 Next Appt Details Provider Name:Burke hooper Jr, 05/05/2025 08:30:00 AM, [address] [place] [address] [place], [id number], Insurance Providers Payer Name Payer Address Payer Phone Subscriber Number Group Number Insured Name Patient Relationship to Insured Coverage Start Date Coverage End Date [facility] [address] [place] [phone] [id number] ABHIJIT HENDERSON Self - patient is the insured Medical (General) History Medical History History ICD Code Arthritis Hypertension Kent's esophagus, EGD 11/06 0, no dysplasia, 2-year follow-up. H. pylori infection, treated. Colonoscopy 11/24, normal, 5-year follow- up Chest pain with negative cardiac workup Surgical History Surgery Date(Month/Year)
== END 2025-04-20 11:52 | disposition home or self-care (01) ==
LOC: HO.HMCH 10:59
PROVIDERS: PCP Internal Medicine; Visit Provider Internal Medicine
DX: Z00.00 Encounter for general adult medical examination without abnormal findings (principal); E78.00 Pure hypercholesterolemia, unspecified; E66.9 Obesity, unspecified; Z68.33 Body mass index [BMI] 33.0-33.9, adult; I10 Essential (primary) hypertension; R73.01 Impaired fasting glucose; R79.89 Other specified abnormal findings of blood chemistry; R07.9 Chest pain, unspecified; J30.9 Allergic rhinitis, unspecified; M12.812 Other specific arthropathies, not elsewhere classified, left shoulder; M50.90 Cervical disc disorder, unspecified, unspecified cervical region; M51.360 Other intervertebral disc degeneration, lumbar region with discogenic back pain only

== ENCOUNTER → 2025-04-20 10:58 | Outpatient (BNVA) | payer OTHER, SELFPAY | PROVIDERS: PCP Internal Medicine; Visit Provider Internal Medicine | DX: Z00.00 Encounter for general adult medical examination without abnormal findings (principal); E78.00 Pure hypercholesterolemia, unspecified; I10 Essential (primary) hypertension; R73.01 Impaired fasting glucose; R79.89 Other specified abnormal findings of blood chemistry; R07.9 Chest pain, unspecified; J30.9 Allergic rhinitis, unspecified; M12.812 Other specific arthropathies, not elsewhere classified, left shoulder; M50.90 Cervical disc disorder, unspecified, unspecified cervical region; G47.00 Insomnia, unspecified; E66.9 Obesity, unspecified; Z68.33 Body mass index [BMI] 33.0-33.9, adult; Z79.899 Other long term (current) drug therapy; Z13.31 Encounter for screening for depression; Z13.39 Encounter for screening examination for other mental health and behavioral disorders | CPT/HCPCS: 96127 ==

== ENCOUNTER 2025-05-05 07:24 | Day surgery (SDC) | payer OTHER, SELFPAY ==
--- OUTSIDE RECORDS SUMMARY | 2025-04-25 12:20 | XMS_ITS | Clinical Summary ---
Author Organization [facility] Address [address] [place] [address] [place] [address] Phone Care Team Providers [employer] Pilot Name Role Phone Valeriy Ayon MD Primary Care Provider [phone] Allergies No known active allergies Medications amLODIPine (NORVASC) 10 MG tablet 12/20/2024 Active cyclobenzaprine (FLEXERIL) 5 MG tablet 12/19/2024 Active fluticasone propionate (FLONASE) 50 mcg/actuation nasal spray daily. 12/20/2024 Active ibuprofen (ADVIL,MOTRIN) 200 MG tablet Take 200 mg by mouth 2 (two) times a day. Active loratadine (CLARITIN) 10 mg tablet Take 1 tablet by mouth every morning. 11/22/2024 Active metoprolol succinate (TOPROL-XL) 50 MG 24 hr tablet Take 1 tablet (50 mg total) by mouth daily. 90 tablet 3 12/27/2024 Active Active Problems Problem Noted Date Diagnosed Date Chest pain 12/27/2024 Assessment & Plan (03/17/2025 8:10 AM EDT): This patient was having chest pain which is noncardiac his stress test and echo are totally normal I reassured him I will follow-up with him in 9 months time Assessment & Plan (12/27/2024 8:37 AM EDT): As mentioned I am going to investigate with an echo and a stress test I am anticipating his blood pressure will be under much better control by the time he actually has the stress test performed as we are starting 50 mg of long-acting metoprolol today in addition to his amlodipine. Benign essential hypertension 12/27/2024 Assessment & Plan (03/17/2025 8:10 AM EDT): Mildly elevated today he needs diet and exercise which should take care of this and get him to the guidelines Assessment & Plan (12/27/2024 8:38 AM EDT): Not well-controlled at all he says his blood pressure has been high for quite a while I am adding metoprolol 50 mg daily to his medical regimen Shortness of breath 12/27/2024 Assessment & Plan (03/17/2025 8:10 AM EDT): He is not short of breath due to ischemia or LV dysfunction Assessment & Plan (12/27/2024 8:38 AM EDT): Echo and stress test will also evaluate this Arrhythmia 12/27/2024 Assessment & Plan (03/17/2025 8:10 AM EDT): No more palpitations he does have lower extremity edema and venous varicosities I ordered him a venous reflux study I will see him again in 9 months Encounters Date Type Department Care Team Description 03/17/2025 8:00 AM EDT Office Visit [facility] [address] [place] [address] Dr [address] Floor, [address] [place] [address] Paul Bustamante, Localized edema (Primary Dx); Chest pain on breathing; Benign essential hypertension; Shortness of breath 02/22/2025 2:31 PM EDT - 02/22/2025 11:59 PM EDT Hospital Encounter [facility] [place] [address] [place] [address] Paul Bustamante, DO Discharge Disposition: Home or Self Care 02/01/2025 7:21 AM EDT - 02/01/2025 11:59 PM EDT Hospital Encounter Non-Invasive Cardiology [address] [place] [address] Paul Bustamante, DO Discharge Disposition: Home or Self Care 12/27/2024 Procedure Pass Echo Lab [place] [address] [place] [address] from Last 3 Months Social History Tobacco Use Types Packs/Day Years Used Date Smoking Tobacco: Never Smokeless Tobacco: Never Tobacco Cessation:Counseling Given: Not Answered Education Answer Date Recorded Are you interested in more education? Not on bisi e 12/26/2024 Are you concerned about learning? Not on file 12/26/2024 No 12/26/2024 No 12/26/2024 Digital Access Answer Date Recorded No 12/26/2024 No 12/26/2024 Reliable internet access at home? Not on file 12/26/2024 Device with a working camera? Not on file Sex and Gender Information Value Date Recorded Sex Assigned at Not on file Legal Sex Male 9:20 AM EDT Gender Identity Not on file Sexual Orientation Not on file Last Filed Vital Signs Vital Sign Reading Time Taken Comments Blood Pressure 140/96 03/17/2025 8:03 AM EDT Pulse 78 03/17/2025 8:03 AM EDT Temperature - - Respiratory Rate - - Oxygen Saturation 97% 03/17/2025 8:03 AM EDT Inhaled Oxygen Concentration - - Weight 101.2 kg (223 lb) 03/17/2025 8:03 AM EDT Height 172.7 cm (5' 7.99 ) 03/17/2025 8:03 AM ED T Body Mass Index 33.92 03/17/2025 8:03 AM EDT Plan of Treatment Upcoming Encounters Date Type Department Care Team (Late st Contact Info) Description 05/24/2025 8:00 AM EDT Appointment [facility] [address] [place] [address] Paul Bustamante DO [address] [place] [address] [place] [address] 12/11/2025 8:00 AM EDT Office Visit [facility] [address] [facility], [address] [place] [address] Paul Bustamante DO [facility] [address] [place] [address] [email or web address] Due Date Last Done Comments Adult Td,Tdap Booster 1970 LIPID PANEL 1970 DEPRESSION SCREENING 1982 HEPATITIS C SCREENING 01/17/1988 HIV ONE-TIME SCREENING (18-6 5 YEARS) 01/17/1988 SCREENING FOR DIABETES 2005 COLOGUARD 2015 COLONOSCOPY 2015 COLORECTAL CANCER SCREENING 2015 FIT TEST 2015 FOBT 2015 SIGMOIDOSCOPY 2015 VIRTUAL COLONOSCOPY 2015 PNEUMOCOCCAL VACCINES (50+ y ears) (1 of 1 - PCV) 01/17/2020 ZOSTER VACCINES (1 of 2) 01/17/2020 COVID-19 VACCINE (1 - 2023-2 5 season) 2024 BLOOD PRESSURE 09/16/2025 03/17/2025 SMOKING STATUS SCREENING (On ce After 26 Yrs) Completed 03/17/2025 HEPATITIS A VACCINES Aged Out No long er eligible based on patient's age to complete this topic HIB VACCINES Aged Out No longer eligi ble based on patient's age to complete this topic MENINGOCOCCAL VACCINES (ACWY) Aged Out No longer eligible based on patient's age to complete this topic MENINGOCOCCAL VACCINES (B) Aged Out N o longer eligible based on patient's age to complete this topic Medical Devices Not on file Procedures Procedure Name Priority Date/Time Associated Diagnosis Comments TTE COMPREHENSIVE Routine 02/22/2025 3:1 5 PM EDT Shortness of breath NC MYOCARDIAL PERFUSION EXERCISE, MULTI Routine 02/01/2025 9:04 AM EDT Arrhythmia Shortness of breath from Last 3 Months Results * (ABNORMAL) TTE COMPREHENSIVE (02/22/2025 3:15 PM EDT) Height 173 cm Weight 99 kg Interventricular Septum Thickness 10 6 - 11 mm Left Ventricle Internal Diameter End Diastole 45 42 - 58 mm Left Ventricle Internal Diameter End Systole 34 <40 mm Left Ventricular Outflow Tract Diameter 21.0 mm Left Ventricular Posterior Wall Thickness 12 6 - 11 mm Left Ventricle Ea Lateral Wave Speed 6.8 cm/s Left Ventricle Ea Septal Wave Speed 7.6 cm/s Ejection Fraction 57 50 - 75 Percent Left Atrium Dimension Anterior-Posterior 37 15 - 40 mm Aortic Valve Mean Gradient 6 mmHg Aortic Valve Time Velocity Integral 290.0 mm Aortic Valve Peak Velocity 1.8 m/s Aortic Valve Peak Gradient 13 mmHg Aortic Arch Diameter 26 mm Aortic Sinus Diameter 39(A) <40 mm Ascending Aorta Diameter 35(A) <36 mm Mitral Valve Deceleration Time 217 ms Left Ventricle A Wave Speed 91.7 cm/s Left Ventricle E Wave Speed 81.4 cm/s Pulmonary Valve Peak Velocity 0.9 m/s Pulmonary Valve Peak Gradient 4 mmHg Right Ventricle Basal Diameter 23 25 - 41 mm Raw LV EF% 43 % MV E/E' Tissue Velocity Lateral 11.97 Relative Wall Thickness 0.53 0.22 - 0.42 Left Ventricular Mass 175.0 g MV E/A ratio 0.9 MV E/e' septal 10.71 Left Ventricle E/e' Average 11.3 Aortic Valve Prosthetic Peak Gradient 13 mmHg Aorta Sinus Index by Height 2.25 cm/m Aorta Sinus CSA index by Height 6.90 cm2/m Asc Aorta CSA Index by Height 5.56 cm2/m Pulmonic Valve Prosthetic Peak Gradient 4 mmHg Echo E/Ea 10.71 Aortic Valve Prosthetic Mean Gradient 6 mmHg Body Surface Area 2.12 m2 Left Atrial Volume Index 18 16 - 34 mL/m2 Right Ventricle TAPSE 19 >=17 mm Right Ventricle Pulse Doppler S Wave 10.0 >=9.5 cm/s Left Ventricle indexed to BSA 82.6 g/m2 Left Ventricle Mid Gradient 2 mmHg LVOT Gradient Mid Ventricle Peak Valsalva 17 mmHg Left Atrial Volume 39 mL Left Atrial Volume Index by Height 23 mL/m Right Atrium Area 13 cm2 Right Atrium Area index 6 cm2/m2 Aortic Valve Sinus Index by BSA 18 mm/m2 Ascending Aorta Index 17(A) mm/m2 Ascending Aorta Index 17 mm Aortic Sinus Index 18 mm Ascending Aorta Diameter 17 mm Aortic Valve Sinus Index 1 18 20 - 32 mm AO ASC DIAM BSA INDEX 16.51 Anatomical Region Laterality Modality Heart Ultrasound Narrative 02/23/2025 12:26 PM EDT Images from the original result were not included. Borderline LVH with normal LV size and function EF 60%. Normal RV size and function. Normal diastolic function. No significant valvular heart disease is seen. Normal diastolic function. No clear cardiac cause for shortness of breath found on the study. Left Ventricle The left ventricle is normal in size. The LV internal diameter is 45 mm (normal: M 42-58 mm; F 37-52 mm) at end diastole, and 34 mm (normal: M < 40 mm; F < 35 mm) at end systole. There is borderline mild concentric hypertrophy. The interventricular septal thickness is 10 mm (normal: 6-11 mm). The LV posterior wall thickness is 12 mm (normal: 6-11 mm). There is normal left ventricular systolic function. The LV ejection fraction is 60-65% (visually estimated). LV diastolic function appears within normal limits for age. The peak mid-cavity pressure gradient is 2 mmHg at rest. The peak mid-cavity pressure gradient is 17 mmHg with Valsalva maneuver. Right Ventricle The right ventricle is normal in size. There is normal right ventricular systolic function. TAPSE is 19 mm (normal: >= 17 mm). RV S' wave is 10.0 cm/s (normal: >= 9.5 cm/s). Left Atrium The left atrium is normal in size. Right Atrium The right atrium is normal in size. The IVC is not assessed. Mitral Valve The mitral valve appears normal. There is no mitral stenosis. There is trace mitral regurgitation. Tricuspid Valve The tricuspid valve appears normal. There is no tricuspid stenosis. There is no tricuspid regurgitation. RV systolic pressure could not be estimated due to insufficient TR Doppler envelope. Aortic Valve The aortic valve is tricuspid with normal leaflets. There is no aortic stenosis. There is no aortic regurgitation. The aortic sinuses are normal in size. The aortic sinus diameter is 39 mm. The aortic sinus index by BSA is 18 mm/m2. The ascending aorta is mildly dilated. The ascending aortic diameter is 35 mm. The ascending aorta index by BSA is 17 mm/m2. The aortic arch diameter is 26 mm. Pulmonic Valve The pulmonic valve appears normal. There is no pulmonic stenosis. There is trace pulmonic regurgitation. Pericardium The pericardium appears normal. General Findings The image quality was good (2). Technique(s) used in the evaluation: Multiplane, Color flow Doppler, Spectral Doppler and Epiaortic scan. Comparison Findings There are no prior studies for comparison. IAS/IVS The interatrial septum is suboptimally visualized. The interventricular septum is suboptimally visualized. us Paul Bustamante DO CV ECHO ORDERABLES Final Resu lt * NC Myocardial Perfusion Exercise Multiple (02/01/2025 9:04 AM EDT) Max Predicted Heart Rate 165 bpm Stress/rest perfusion ratio 1.13 Nuc Stress EF 61 % SNMDIAVOL 147.0 mL SNMSYSVOL 58.0 mL Nuc Rest EF 65 % RNMDIAVOL 125.0 mL RNMSYSVOL 44.0 mL Anatomical Region Laterality Modality Heart, Vascular Ultrasound Narrative 02/03/2025 8:16 AM EDT Normal study. There is no evidence of myocardial infarction or ischemia. Normal LV size and function with no regional wall motion abnormalities. Very low likelihood of hemodynamically significant coronary artery disease. Low risk study for myocardial events or cardiac in the next two years. ECG STRESS REPORT: BMI: 33.15 Larry Sheikh exercised for 9: 34 min on a DAVID protocol achieving 10.10 METS. Test terminated due to fatigue. Baseline resting HR was 69 bpm. Max heart rate achieved was 139 bpm. (MPHR 84%). 1. ECG: Baseline ECG showed sinus rhythm with right bundle branch block and nonspecific ST T wave abnormalities. With exercise there was an exaggeration of these nonspecific ST T wave abnormalities but nothing that met strict criteria for ischemia. 2. SYMPTOMS: No chest pain and no symptoms concerning for angina. 3. EXERCISE PHYSIOLOGY: Average functional capacity for age. Blood pressure: 112/80 at rest, 150/86 with exercise, and 124/80 on discharge from stress lab. 4. ARRHYTHMIAS: Occasional isolated PVCs. Conclusion: Exercise portion of test showed no EKG changes suggestive for ischemia. There were no symptoms concerning for angina.. Nuclear images pending and will be reported separately. See attached stress report for full details. Loni Lee NP NUCLEAR REPORT: TYPE OF STUDY: Myocardial Perfusion Imaging after exercise utilizing a standard David protocol with gated SPECT. PROTOCOL USED: One day rest- stress protocol in the supine and prone position. Images were obtained in gated tomographic technique. Images were processed in SPECT format, reconstructed tomographically and compared [id number] in short axis, horizontal long axis and vertical long axis. DOSE: Technetium 99m Sestamibi 7.1 mCi injected intravenously in the right antecubital vein at rest on 02/01/2025 with post injection scan time of 60 minutes. Technetium 99m Sestamibi 22.0 mCi injected intravenously in the right arm antecubital vein during stress on 02/01/2025 with post injection scan time of 20 minutes. Overall image quality is good. Diaphragmatic attenuation is present. No motion artifact is present. Stress Function Defect Left ventricular global function is normal during stress. Stress ejection fraction is 61%. The stress end diastolic cavity size is normal. Stress end diastolic size: 147.0 mL. The stress end systolic cavity size is normal. Stress end systolic size: 58.0 mL. Rest Function Defect Left ventricular global function is normal at rest. Resting ejection fraction was 65%. The rest end diastolic cavity size is normal. Rest end diastolic size: 125.0 ml. The rest end systolic cavity size is normal. Rest end systolic size: 44.0 mL. Nuclear Prior Study There is no prior study available for comparison. Nuclear Ancillary Finding There is no evidence of transient ischemic dilation (TID). The TID ratio is 1.13, which is normal. Perfusion Scoring Resting Summed Score: 0 Percent Normal: 0.00% The left ventricular perfusion is normal. SUPINE IMAGING REST Perfusion Scoring Stress Summed Score: 0 Percent Normal: 0.00% The left ventricular perfusion is normal. PRONE IMAGING STRESS Perfusion Scores: SRS Score: 0 Percentage Abnormal: 0.00% Perfusion Scores: SSS Score: 0 Percentage Abnormal: 0.00% Perfusion Scores: SDS Score: 0 Percentage Abnormal: 0.00% Procedure Note Tyler Urrutia MD - 02/03/2025 Normal study. There is no evidence of myocardial infarction or ischemia. Normal LV size and function with no regional wall motion abnormalities. Very low likelihood of hemodynamically significant coronary arterydisease. Low risk study for myocardial events or cardiac in the next twoyears. Paul Flynn Dianna DO CV NM CARDIAC Final Result from Last 3 Months Insurance ED [facility] [employer] Pilot Relationship Specialty Start Date End Date Valeriy Ayon MD [address] [place] [address] [place] [id number] PCP - General Internal Medicine 12/26/24 Additional Source Comments The information contained in this document represents components of the legal health record. It is not the complete legal health record.[facility]
--- OUTSIDE RECORDS SUMMARY | 2025-04-25 12:20 | XMS_ITS | Patient Health Record ---
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 Problem [id number] GERD without esophagitis (K21.9) Active confirmed Vital Signs Temperature 98.7 degrees Fahrenheit 03/22/2025 Blood pressure diastolic 01 mm Hg 03/22/2025 Height 68 in 03/22/2025 Blood pressure systolic 001 mm Hg 03/22/2025 Weight 226.4 lbs 03/22/2025 BMI 34.42 kg/m2 03/22/2025 Encounters Encounter Location Date Provider Diagnosis [facility] [address] [facility] [address] [place] [phone] 03/22/2025 Burke Stewart Jr Kent esophagus K22.70 [...] Provider Name:Burke hooper Jr, 05/05/2025 08:30:00 AM, [address] [place] [address] [place], [id number], Insurance Providers Payer Name Payer Address Payer Phone Subscriber Number Group Number Insured Name Patient Relationship to Insured Coverage Start Date Coverage End Date [employer] [address] [place] [phone] [id number] ABHIJIT HENDERSON Self - patient is the insured Medical (General) History Medical History History ICD Code Arthritis Hypertension Kent's esophagus, EGD 11/06 0, no dysplasia, 2-year follow-up. H. pylori infection, treated. Colonoscopy 11/24, normal, 5-year follow- up Chest pain with negative cardiac workup Surgical History Surgery Date(Month/Year)
--- OUTSIDE RECORDS SUMMARY | 2025-04-25 12:20 | XMS_ITS | Patient Health Record ---
Author Organization [facility] Nenaarely Ramirez Address [address] [facility] [place] [address] Care Team Providers Care [employer] Out Press Operator Name Role Phone Deep Ayon MDneth Primary Care Provider Sonam Johnson Unavailable [phone] Reason For Referral No Information Medications Medication [...] Treatment Pending Test Test Name Order Date ,[id number] TENDON SHEATH/LIGAMENT 1 10/10/2019 Insurance Providers Payer Name Payer Address Payer Phone Subscriber Number Group Number Insured Name Patient Relationship to Insured Coverage Start Date Coverage End Date [facility] [address] [place] [address] [id number] Larry Thibodeaux Self - patient is the insured Medical (General) History Surgical History Surgery Date(Month/Year)
[2025-05-03 10:34] VITALS: BMI 33.4
--- NOTE | 2025-05-04 09:13 | HO.ANESPROP2 ---
Documented by User: Evelia Wang NP 05/04/25 11:39 HPI - Anesthesia Eval Consult details Narrative: 55yo M for Upper Endoscopy and Colonoscopy 03/2025 cardiac eval with [facility] for chest pain and sob. Echo and stress done and wnl. Etiology non cardiac in nature. Per 05/04/25 T/C to patient - no chest pain with recent [place] trip with a lot of walking. 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 (Acute) Status post fall (Acute) Weakness of left upper extremity (Acute) Numbness and tingling of left upper extremity (Acute) Chest congestion (Acute) Obesity (BMI 30-39.9) (Acute) Disorder of axillary nerve (Acute) Dysfunction of left rotator cuff (Acute) Nerve conduction block of motor nerve of left side of body (Acute) Left shoulder pain (Acute) Strain of latissimus dorsi muscle (Acute) Paresthesia of right upper extremity (Acute) Annual physical exam (Acute) Family history of colon cancer (Acute) Difficulty urinating (Acute) Throat swelling (Acute) Diarrhea (Acute) Helicobacter pylori gastritis (Acute) Colitis (Acute) Lesion of pelvic bone (Acute) Bony sclerosis (Acute) Gastroenteritis (Acute) Elevated blood pressure reading (Acute) Obesity (BMI 30-39.9) (Acute) Right knee pain (Acute) RBBB (Acute) Chest pain (Acute) Lumbar degenerative disc disease (Acute) Pure hypercholesterolemia (Acute) Benign essential hypertension (Acute) Cervical disc disease (Acute) Overweight (BMI 25.0-29.9) (Acute) Allergic rhinitis (Acute) Occipital headache (Acute) Achilles tendinitis (Acute) Rotator cuff arthropathy of left shoulder (Acute) Past Medical History Medical History Right knee pain RBBB Chest pain Lumbar degenerative disc disease Pure hypercholesterolemia Benign essential hypertension Cervical disc disease Overweight (BMI 25.0-29.9) Allergic rhinitis Occipital headache Achilles tendinitis Rotator cuff arthropathy of left shoulder Family History Family History Father CVD (cardiovascular disease) Mother Diabetes Brain tumor Surgical History Surgical History History of esophagogastroduodenoscopy (EGD) (11/2019) History of colonoscopy Social History Social History Household Members: Family Housing: House Are you a primary healthcare prof to a significant other at home: No Do you presently have visiting nurse or other home services: No Alcohol intake: current Alcohol intake frequency: holidays/special occasions only Patient Tobacco Use Status: Former Tobacco user e-Cigarette/Vaping Use: Never Used Second Hand Smoke Exposure: Yes Use of substances other than those prescribed or required for medical reasons: Yes Substance Use Frequency: Weekly Have you been hit, kicked, punched, or otherwise hurt by someone within the past year? If so, by whom?: No Are you DNR?: No Advance Directives: No Advance Directives Information Provided: Yes Advance Directives on File: No Poor oral hygiene: No service: No Current occupational status: employed Current occupational exposures/hazards: No Cognitive needs: No Hearing needs: No Vision needs: Yes Meds Allergies Allergy/AdvReac Type Severity Reaction Status Date / Time hydrocodone AdvReac Intermediate nausea,dizz Verified 04/20/25 11:18 iness Home Medications ?Medication ?Instructions ?Recorded ?Confirmed ?Last Taken ?Type metoprolol succinate 50 mg 50 mg PO DAILY 04/20/25 05/05/25 05/05/25 06:30 History tablet,extended release 24 hr multivitamin 1 tab PO DAILY 05/04/25 05/04/25 Unknown History Exam Height,Weight and Vital Signs: Height 5 ft 8 in Weight 99.79 kg Narrative Narrative: ECHO 2024 Nuc Stress Assessment and Plan Assessment Anesthesia Assessment: Chart Reviewed Documented by User: Flora Masters MD 05/05/25 07:53 PMFSH Past Medical History Medical History Right knee pain RBBB Chest pain Lumbar degenerative disc disease Pure hypercholesterolemia Benign essential hypertension Cervical disc disease Overweight (BMI 25.0-29.9) Allergic rhinitis Occipital headache Achilles tendinitis Rotator cuff arthropathy of left shoulder Family History Family History Father CVD (cardiovascular disease) Mother Diabetes Brain tumor Family history of problems with anesthesia: No Surgical History Surgical History History of esophagogastroduodenoscopy (EGD) (11/2019) History of colonoscopy History of Problems with Anesthesia: No Social History Social History Household Members: Family Housing: House Are you a primary healthcare prof to a significant other at home: No Do you presently have visiting nurse or other home services: No Alcohol intake: current Alcohol intake frequency: holidays/special occasions only Patient Tobacco Use Status: Former Tobacco user e-Cigarette/Vaping Use: Never Used Second Hand Smoke Exposure: Yes Use of substances other than those prescribed or required for medical reasons: Yes Substance Use Frequency: Weekly Have you been hit, kicked, punched, or otherwise hurt by someone within the past year? If so, by whom?: No Are you DNR?: No Advance Directives: No Advance Directives Information Provided: Yes Advance Directives on File: No Poor oral hygiene: No service: No Current occupational status: employed Current occupational exposures/hazards: No Cognitive needs: No Hearing needs: No Vision needs: Yes Meds Allergies Allergy/AdvReac Type Severity Reaction Status Date / Time hydrocodone AdvReac Intermediate nausea,dizz Verified 04/20/25 11:18 iness Home Medications ?Medication ?Instructions ?Recorded ?Confirmed ?Last Taken ?Type metoprolol succinate 50 mg 50 mg PO DAILY 04/20/25 05/05/25 05/05/25 06:30 History tablet,extended release 24 hr multivitamin 1 tab PO DAILY 05/04/25 05/04/25 Unknown History Exam Airway Mallampati Class: II TM Dist: >3cm Neck ROM: Full Heart: rrr Lungs: cta Assessment and Plan Assessment Anesthesia Assessment: Anesthesia Plan Discussed Final Anesthetic Review Family History of Problems with Anesthesia: No History of Problems with Anesthesia: No NPO: Yes ASA Class: II Final Preanesthetic Review: No Changes in Pt Med Stat, Meds/Allgs Chart Reviewed, Consent Obtained/Reviewed and Anes Risks/Benef Reviewed Patient Risk: Low Procedure Risk: Low Anesthetic Plan Anesthetic Plan: MAC: Disposition: Standard PACU
[2025-05-04 09:16] VITALS: BMI 32.7
[2025-05-05 07:34] VITALS: BMI 32.8
[2025-05-05 07:47] VITALS: BP 143/90; PULSE 80; RESP 18; TEMP 36.1; O2SAT 96
[2025-05-05] MEDS: Lactated Ringers 1,000 ML 100 ML IVCONT (07:56)
--- NOTE | 2025-05-05 08:21 | MHC.SHP ---
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,screening Details of Present Illness: see H&P no changes Relevant Family History (Specify if Yes): No Relevant Social History: None Present Medications: see Short Stay Collaborative assessment Medical History: No relevant PMH History of Previous Operations: No relevant previous surgery Allergies: Allergies Allergy/AdvReac Type Severity Reaction Status Date / Time hydrocodone AdvReac Intermediate nausea,dizz Verified 04/20/25 11:18 iness Review of Systems Sugical H&P ROS: Negative: Constitution, Cardiovascular, Respiratory, Neurological, Psychiatric, Hem-Onc, Allergic/Immunologic, Gastrointestinal, Genitourinary, Musculoskeletal, Integumentary, Endocrine and Eyes/Ears/Nose/Throat Exam Surgical H&P Exam: Normal: HEENT, Normal: Heart, Normal: Lungs, Normal: Extremities, Normal: Abdomen, Normal: Skin and Normal: Neurological Plan Diagnosis/Plan: Unchanged I have reviewed the history and physical and performed a pertinent physical examination on my patient. No changes have occurred unless specified. Time Spent With Patient Time: Total time managing care of this patient today ____ minutes.
[2025-05-05 09:06] VITALS: BP 107/70; PULSE 90; RESP 16; TEMP 36.1; O2SAT 96
[2025-05-05 09:21] VITALS: BP 139/98; PULSE 75; RESP 20; TEMP 36.5; O2SAT 95
--- NOTE | 2025-05-05 09:56 | OP_ITS ---
DATE OF SERVICE: 05/05/2025 SURGEON: Burke Stewart MD INDICATIONS: 1. Gastroesophageal reflux disease and Kent esophagus. 2. Colon cancer screening. PREOPERATIVE DIAGNOSIS: POSTOPERATIVE DIAGNOSIS: PROCEDURE PERFORMED: Upper endoscopy with biopsy, colonoscopy to the terminal ileum with biopsy. ESTIMATED BLOOD LOSS: COMPLICATIONS: ANESTHESIA: Monitored anesthesia care. ASSISTANTS: SPECIMENS: DESCRIPTION OF PROCEDURE: A history and physical was performed. The risks and benefits of the procedure were explained to the patient. Informed consent was obtained. The patient was placed in the left lateral decubitus position. The Olympus video gastroscope was introduced into the esophagus, stomach, and duodenum. Examination was performed. The scope was removed. He was repositioned for colonoscopy. A digital rectal exam was performed and was found to be normal. The Olympus pediatric video colonoscope was introduced into the rectum and advanced to the cecum. The cecum was identified by transillumination, palpation, and identification of ileocecal valve. Examination was performed. The scope was removed. He tolerated the procedure well and was returned to the recovery area in stable condition. FINDINGS: Upper endoscopy: 1. Esophagus: The esophagus showed a less than 1 cm area of irregular EG junction consistent with Kent esophagus. There were no raised lesions or ulcerated areas. Biopsies were obtained from the EG junction. 2. Stomach: The stomach showed no evidence of masses, ulcers, or polyps. 3. Duodenum: The bulb and 2nd portion were normal. Colonoscopy: The terminal ileum was examined and appeared normal. The visualized colonic mucosa was normal. The quality of the prep was good. There was a single polyp identified and removed with a biopsy forceps measuring less than 5 mm. This was located at 55 cm from the anal verge. No other polyps were identified. There was scattered diverticula in the sigmoid retroflexed examination showed moderate-sized internal hemorrhoids. IMPRESSION: 1. Kent esophagus. 2. Colon polyp. RECOMMENDATION: Follow up the biopsy results. MD REBECCA Go/MARC / [id number]
== END 2025-05-05 09:57 | disposition home or self-care (01) ==
PROVIDERS: PCP Internal Medicine; Visit Provider Internal Medicine Gastroenterology
PROC: (CPT 45380; principal; 2025-05-05 08:30)
DX: Z12.11 Encounter for screening for malignant neoplasm of colon (principal); D12.5 Benign neoplasm of sigmoid colon; K57.30 Diverticulosis of large intestine without perforation or abscess without bleeding; K64.8 Other hemorrhoids; Z80.0 Family history of malignant neoplasm of digestive organs; K22.70 Barrett's esophagus without dysplasia; K21.9 Gastro-esophageal reflux disease without esophagitis; I10 Essential (primary) hypertension; Z87.891 Personal history of nicotine dependence; Z79.899 Other long term (current) drug therapy
CPT/HCPCS: 45380; 43239; 88305; 88313; J2704

== ENCOUNTER 2025-05-25 08:30 | Outpatient (AMB) | payer OTHER, SELFPAY ==
--- OUTSIDE RECORDS SUMMARY | 2025-05-05 04:30 | XMS_ITS ---
Author Organization [facility] Address [address] [place] [phone] Care Team Providers Care Brick Handler Name Role Phone Gabo WARD, Valeriy Primary Care Provider Burke London Jr REASON FOR VISIT saleem's,screening Encounters Encounter Location Date Provider Diagnosis [facility] Outpatient [address] [place] [phone] 05/05/2025 Burke Stewart Jr Plan Of Treatment No Information Progress Notes * ABHIJIT ALEMANDOB: 0 (55 yo M)Acc No.[id number]:05/05/2025 EGD and COL/MAC Patient: ABHIJIT GOMEZ Provider: Mohinder Stewart MD :1970 A ge:55 Y S ex:Male Date:05/05/2025 Address:[address] [place], [place] [phone] Pcp:Valeriy Ayon MD Subjective: * Chief Complaints: * 1 . Saleem's,screening. * Medical History: Objective: * Vitals: Assessment: Plan: * Treatment: * * The named appointment provid er may or may not be the originator of this progress note, and it is not deemed complete until electronically signed by the appointment provider. Sign off status: Pending * Provider: Mohinder Stewart MD Date: 05/05/2025 Generated for Printi ng/Faxing/eTransmitting on: 05/25/2025 09:24 AM EDT
[2025-05-25 08:35] VITALS: BP 147/83; PULSE 99; RESP 18; O2SAT 95
--- NOTE | 2025-05-25 08:35 | MHC.OFFVIS ---
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 For the past month he felt no pain in the right knee. He reports excellent activities excellent mobility good social interactions related to the injection. He now requests to perform left knee injection. Informed consent was obtained and risks and benefits were explained to the patient. Risks of steroid injections were also explained to the patient. We also discussed possibility of further treatment of his pain in the knees. I explained to him possibility of treating pain in the knees with different modalities including physical therapy and PRP injections. Patient expressed understanding. I explained to him the diet and weight loss would be effective to improve knee pain. Recommend low-impact aerobic exercise including swimming and stationary bicycle, I recommend physical therapy for the knees improving strength of the adductor and hamstring muscles of the thighs. Patient expressed understanding. We agreed that he will schedule an appointment with me when his pain will come back. [facility] Medical History Right knee pain RBBB Chest pain Lumbar degenerative disc disease Pure hypercholesterolemia Benign essential hypertension Cervical disc disease Overweight (BMI 25.0-29.9) Allergic rhinitis Occipital headache Achilles tendinitis Rotator cuff arthropathy of left shoulder Surgical History History of esophagogastroduodenoscopy (EGD) (11/2019) History of colonoscopy Family History Father CVD (cardiovascular disease) Mother Diabetes Brain tumor Social History Household Members: Family Housing: House Are you a primary pet caregiver to a significant other at home: No Do you presently have visiting nurse or other home services: No 75 years or older and lives alone: No Alcohol intake: current Alcohol intake frequency: holidays/special occasions only Patient Tobacco Use Status: Former Tobacco user Tobacco use type: Cigarette e-Cigarette/Vaping Use: Never Used Second Hand Smoke Exposure: Yes service: No Current occupational status: employed Current occupational exposures/hazards: No Cognitive needs: No Hearing needs: No Vision needs: Yes Review of Systems Const All systems reviewed & are unremarkable except as noted in HPI and below Physical Exam Vital Signs: Last Vital Signs Pulse 99 05/25/25 08:35 Resp 18 05/25/25 08:35 BP 147/83 H 05/25/25 08:35 Pulse Ox 95 05/25/25 08:35 Oxygen Delivery Method Room Air 05/25/25 08:35 General: awake, alert, oriented. Answers questions appropriately. Fully engaged in examination. Skin: warm, dry, intact HEENT: Normocephalic. Hearing intact. Cardiac: External chest normal in appearance. Respiratory: No cough, audible wheezing or stridor. Abdomen: without gross distension. MS: No obvious swelling or deformities. Able to transition from sit to stand unassisted. Ambulates with bilaterally normal heel strike and toe off Right knee: Tenderness over medial side. Unable to fully flex or extend secondary to pain. Pain posteriorly with extension. Neurological: Oriented to person, place, time and situation. Thought process intact. No gait abnormalities appreciated. Psychiatric: Appropriate mood and affect. Good judgment and insight. Office Procedures AMB Joint Injection/Aspiration Joint Injection/Aspiration Primary Site: left knee Injected: 40 mg of Approach Used: anterolateral Procedure: The patient tolerated the procedure well Coding 22454 - Large joint Procedure code (CPT) selection complete Office Meds Kenalog 40 mg/mL suspension for injection Performing Provider: Colby Donnelly MD Performing Location: [facility] Administered by: Colby Donnelly MD on 05/25/25 08:59 Dose Route Admin Location Dispensed Lot Number Expiration Date [facility] Polysomnographic Technologist 40 mg intra-articular 1 mL [id number] 06/04/27 Rally Fit Total Dispensed Waste 1 mL 0 % Results Reviewed Results Reviewed: 03/06/25 XR/XR knee RT 4V FINDINGS: Four views of the right knee are submitted. Osseous mineralization is normal. There is no fracture or dislocation. There is minimal narrowing of the medial and patellofemoral compartments. The soft tissues are unremarkable. There is no joint effusion. IMPRESSION: Minimal narrowing of the medial and patellofemoral compartments. Assessment & Plan Assessment & Plan (1) Left knee pain: Code(s): M25.562 - Pain in left knee Category: Medical (2) Osteoarthritis of left knee: Code(s): M17.12 - Unilateral primary osteoarthritis, left knee Category: Medical Plan See discussion as above. Patient reports very good results of right knee injection and he looks forward for the results of the left knee injections which we performed today. He will give us a call and schedule an appointment when the pain will come back. Time limitations on the injection were explained to the patient. Orders: Orders AMB Joint Injection/Aspiration Today M17.12 - Unilateral primary osteoarthritis, left knee, M25.562 - Pain in left knee Patient Instructions: I here by testify that I spent 35 minutes in conversation with this patient as well as planning his care and organizing this note. Coding Level of Care Code Est Pt Level 4 (05543) Procedure Only Diagnoses Left knee pain M25.562 Osteoarthritis of left knee M17.12 CPT Codes Coding - 61849 Large joint: 76203 - Large joint ([id number])
--- OUTSIDE RECORDS SUMMARY | 2025-05-25 09:24 | XMS_ITS | Patient Health Record ---
Author Organization [facility] Nenaarely Ramirez Address [address] [facility] [place] [address] Care Team Providers Care Morgue Librarian Name Role Phone Deep Ayon MDneth Primary Care Provider Sonam Johnson Unavailable [phone] Reason For Referral No Information Medications Medication [...] Treatment Pending Test Test Name Order Date ,C6670-MTP TENDON SHEATH/LIGAMENT 1 10/10/2019 Insurance Providers Payer Name Payer Address Payer Phone Subscriber Number Group Number Insured Name Patient Relationship to Insured Coverage Start Date Coverage End Date [facility] [address] [place] [address] [phone] [id number] Larry Thibodeaux Self - patient is the insured Medical (General) History Surgical History Surgery Date(Month/Year)
--- OUTSIDE RECORDS SUMMARY | 2025-05-25 09:24 | XMS_ITS | Clinical Summary ---
Author Organization [facility] Address [address] [place] [address] [place] [id number] Phone Care Team Providers Care Key Punch Teacher Name Role Phone Valeriy Ayon MD Primary Care Provider [phone] Allergies No known active allergies Medications amLODIPine [...] Encounters Date Type Department Care Team Description 05/24/2025 7:52 AM EDT - 05/24/2025 11:59 PM EDT Hospital Encounter [facility] [place] [address] [place] [address] [place] [address] Paul Bustamante, Arrived Discharge Disposition: Home or Self Care 03/17/2025 8:00 AM EDT Office Visit [facility] [place] [address] [place] [address] Paul Bustamante, Localized edema (Primary Dx); Chest pain on breathing; Benign essential hypertension; Shortness of breath 02/22/2025 2:31 PM EDT - 02/22/2025 11:59 PM EDT Hospital Encounter [facility] [place] [address] [place] [address] Paul Bustamante, Discharge Disposition: Home or Self Care 12/27/2024 Procedure Pass [facility] [place] [place] [address] from Last 3 Months Social History Tobacco [...] Care Team (Late st Contact Info) Description 12/11/2025 8:00 AM EDT Office Visit [facility] [address] [place] [address] [address]rd Floor, [address] [place] [address] Paul Bustamante DO [address] [facility] [address] [place] [address] [email or web address] Health Maintenance Due Date Last Done Comments [...] Procedure Name Priority Date/Time Associated Diagnosis Comments US LOWER EXTREMITY VEINS REFLUX EVALUATION DUPLEX COMPLETE (BILATERAL) Routine 05/24/2025 8:51 AM EDT Localized edema TTE COMPREHENSIVE Routine 02/22/2025 3:1 5 PM EDT Shortness of breath from Last 3 Months Results * US Lower Extremity Veins Reflux Evaluation Duplex Complete (Bilateral) (05/24/2025 8:51 AM EDT) Height 173 cm Weight 101 kg GSV Sapheno-Femoral Junction Carline AntPost 0.6 cm Prox Great Saphenous Vein Thigh Valve Closure Time 0.5 sec Prox Great Saphenous Vein Thigh Diameter Anterior-Certified Surgical Assistant ior 0.5 cm Mid Great Saphenous Vein Thigh Valve Closure Time 0.6 sec Mid Great Saphenous Vein Thigh Diameter Anterior-Certified Surgical Assistant ior 0.3 cm Knee Great Saphenous Vein Valve Closure Time 4.5 sec Knee Great Saphenous Vein Diameter Anterior-Certified Surgical Assistant ior 0.2 cm Prox Great Saphenous Vein Calf Diameter Anterior-Certified Surgical Assistant ior 0.2 cm Mid Great Saphenous Vein Calf Diameter Anterior-Certified Surgical Assistant ior 0.2 cm Popliteal Fossa GSV Anterior-Certified Surgical Assistant ior 0.2 cm Mid Small Saphenous Vein Calf Diameter Anterior-Certified Surgical Assistant ior 0.2 cm GSV Sapheno-Femoral Diameter Anterior-Certified Surgical Assistant ior 0.7 cm Prox Great Saphenous Vein Thigh Valve Closure Time 2.9 sec Prox Great Saphenous Vein Thigh Diameter Anterior-Certified Surgical Assistant ior 0.5 cm Mid Great Saphenous Vein Thigh Valve Closure Time 3.6 sec Mid Great Saphenous Vein Thigh Diameter Anterior-Certified Surgical Assistant ior 0.4 cm Dist Great Saphenous Vein Thigh Valve Closure Time 4.3 sec Dist Great Saphenous Vein Thigh Diameter Anterior-Certified Surgical Assistant ior 0.3 cm Knee Great Saphenous Vein Closure time 1.6 sec Knee Great Saphenous Vein Diameter Anterior-Certified Surgical Assistant ior 0.3 cm Prox Great Saphenous Vein Calf Valve Closure Time 2.0 sec Prox Great Saphenous Vein Calf Diameter Anterior-Certified Surgical Assistant ior 0.3 cm Mid Small Saphenous Vein Calf Valve Closure Time 0.9 sec Mid Small Saphenous Vein Calf Diameter Anterior-Certified Surgical Assistant ior 0.2 cm Anatomical Region Laterality Modality Ultrasound Narrative 05/24/2025 9:12 AM EDT Impression: Right Great Saphenous Vein reflux is detailed above. Max reflux time is 4.5 seconds at the knee location. Small Saphenous Vein no reflux detected. There is no evidence of DVT. There is no evidence of Deep Vein reflux >1 second. Left Great Saphenous Vein reflux is detailed above. Max reflux time is 4.3 seconds at the distal thigh location.This is close to the junction of a large varicose vein. Small Saphenous Vein reflux max time 0.9 seconds. There is no evidence of DVT. There is evidence of Deep Vein reflux lasting 2 seconds in the Popliteal vein. Lower Venous Left COMMON FEMORAL VEIN normal compressibility and flow characteristics; Reflux lasting 0.6 seconds. FEMORAL VEIN normal compressibility and flow characteristics; Reflux times: Proximal- 0.6 Mid- 1.2 Distal- 0.7 seconds POPLITEAL VEIN normal compressibility and flow characteristics; Reflux lasting 2 seconds. GREAT SAPHENOUS VEIN REFLUX FINDINGS Sapheno-Femoral Junction: no reflux Proximal thigh: reflux present Mid thigh: reflux present Distal thigh: reflux present Knee: reflux present Proximal calf: reflux present SMALL SAPHENOUS VEIN REFLUX FINDINGS Mid calf: reflux present Lower Venous Right COMMON FEMORAL VEIN normal compressibility and flow characteristics FEMORAL VEIN normal compressibility and flow characteristics; Proximal reflux time 0.5 seconds. POPLITEAL VEIN normal compressibility and flow characteristics GREAT SAPHENOUS VEIN normal compressibility and flow characteristics SMALL SAPHENOUS VEIN normal compressibility and flow characteristics GREAT SAPHENOUS VEIN REFLUX FINDINGS Sapheno-Femoral Junction: no reflux Proximal thigh: reflux present Mid thigh: reflux present Knee: reflux present Proximal calf: no reflux Mid calf: no reflux SMALL SAPHENOUS VEIN REFLUX FINDINGS Popliteal Fossa: no reflux Mid calf: no reflux Introductory Comments Techniques used for this study included: color flow Doppler and spectral waveform Doppler. us Paul Bustamante DO CV US VASCULAR Final Result * (ABNORMAL) TTE COMPREHENSIVE (02/22/2025 3:15 PM [...] visualized. The interventricular septum is suboptimally visualized. Paul Bustamante DO CV ECHO ORDERABLES Final Resu lt from Last 3 Months Insurance [facility] Care Teams Key Punch Teacher Relationship Specialty Start Date End Date Valeriy Ayon MD [address] [place] [address] [place] [address] PCP - General Internal Medicine 12/26/24 Additional Source Comments The information contained in this document represents components of the legal health record. It is not the complete legal health record.[facility]
== END 2025-05-25 09:02 | disposition home or self-care (01) ==
LOC: HO.PMC 08:31
PROVIDERS: PCP Internal Medicine; Visit Provider Anesthesiology
DX: M25.562 Pain in left knee (principal); M17.12 Unilateral primary osteoarthritis, left knee
CPT/HCPCS: 20610; 99214

== ENCOUNTER → 2025-05-25 08:30 | Outpatient (BNVA) | payer OTHER, SELFPAY | PROVIDERS: PCP Internal Medicine; Visit Provider Anesthesiology | DX: M25.562 Pain in left knee (principal) | CPT/HCPCS: 20610; J3300 ==

== ENCOUNTER 2025-07-06 11:02 | Outpatient (AMB) | payer OTHER, SELFPAY ==
--- OUTSIDE RECORDS SUMMARY | 2025-05-05 04:30 | XMS_ITS ---
Author Organization [facility] Address [address] [place] [phone] Care Team Providers Care Stamp Pad Finisher Name Role Phone Gabo WARD, Valeriy Primary Care Provider Burke London Jr [phone] REASON FOR VISIT saleem's,screening Encounters Encounter Location Date Provider Diagnosis [facility] Outpatient [address] [place] [phone] 05/05/2025 Burke Stewart Jr Plan Of Treatment No Information Progress Notes * ABHIJIT ALEMANDOB: 0 (55 yo M)Acc No.[id number]:05/05/2025 EGD and COL/MAC Patient: ABHIJIT GOMEZ Provider: Mohinder Stewart MD :1970 A ge:55 Y S ex:Male Date:05/05/2025 Address:[address] [place], [place] [phone] Pcp:Valeriy Ayon MD Subjective: * Chief Complaints: [...] 0 05/05/2025 Generated for Printi ng/Faxing/eTransmitting on: 1 12:57 PM EDT
[2025-07-06 11:08] VITALS: BP 152/108; PULSE 83; TEMP 36.2; O2SAT 93; BMI 32.0
--- NOTE | 2025-07-06 11:08 | A.OFFPC_ITS ---
Vital Signs 07/06/25 11:08 Height 5 ft 8 in Weight 210 lb 8 oz BMI 32.0 BP 152/108 H Blood Pressure Location Lt brachial Position Sitting Pulse 83 Pulse Source Pulse Oximeter Temp 97.1 F Temp Source Temporal Artery Scan Pulse Oximetry (%) 93 Oxygen Delivery Method Room Air Intake Visit Reasons: Pain underneath breast and back Allergies hydrocodone Adverse Reaction (Intermediate, Verified 07/06/25 11:11) nausea,dizziness Tobacco use date assessed: 07/06/25 Dental Screening Dental Screen Date: 07/06/25 Did you have a dental visit in the last 12 months?: Yes Did you have a dental problem in the last 6 months where you did not have access to dental care?: No Was dental information given to patient?: Patient has dentist HPI HPI Comments History of Present Illness Details The patient is a 55-year-old male presenting with musculoskeletal pain and hypertension management. The patient reports experiencing sharp pains in the chest and back, exacerbated by exertion, laughter, or prolonged talking, which have been present for multiple months. The patient was seen previously for similar symptoms and ED referral was placed. In the ED his cardiac W-U was negative. These pains have been severe enough to interrupt activities, requiring the patient to stop and rest to alleviate symptoms. The patient has a history of hypertension, which led to an emergency room visit earlier this year due to elevated blood pressure. He is currently on two anti hypertensive medications but reports that his blood pressure remains elevated, particularly when he is not feeling well. The patient also reports urinary frequency, waking up four times a night to ur inate, and has concerns about potential prostate issues. He has been started on tamsulosin to address these symptoms. The patient has a history of smoking, having quit five years ago, but occasionally smokes marijuana. He has not had a CT scan of the lungs and expresses concern about potential lung issues due to his smoking history. There is a family history of colon cancer, with the patient's brother having from the disease at age 44. The patient undergoes regular colonoscopies and endoscopies for surveillance. He reports undergoing recent upper endoscopy which he reports showed esopha gitis. No records of upper endoscopy in the patient's chart. [facility] Medical History Right knee pain RBBB Chest pain Lumbar degenerative disc disease Pure hypercholesterolemia Benign essential hypertension Cervical disc disease Overweight (BMI 25.0-29.9) Allergic rhinitis Occipital headache Achilles tendinitis Rotator cuff arthropathy of left shoulder Surgical History History of esophagogastroduodenoscopy (EGD) (11/2019) History of colonoscopy Family History Father CVD (cardiovascular disease) Mother Diabetes Brain tumor Social History Household Members: Family Housing: House Are you a primary clinical care coordinator to a significant other at home: No Do you presently have visiting nurse or other home services: No 75 years or older and lives alone: No Alcohol intake: current Alcohol intake frequency: holidays/special occasions only Patient Tobacco Use Status: Former Tobacco user Tobacco use type: Cigarette e-Cigarette/Vaping Use: Never Used Second Hand Smoke Exposure: Yes service: No Current occupational status: employed Current occupational exposures/hazards: No Cognitive needs: No Hearing needs: No Vision needs: Yes Questionnaire PHQ-9 Over the last 2 weeks, how often have you been bothered by any of the following problems? 1. Little interest or pleasure in doing things: nearly every day 2. Feeling down, depressed, or hopeless: nearly every day 3. Trouble falling or staying asleep, or sleeping too much: nearly every day 4. Feeling tired or having little energy: more than half the days 5. Poor appetite or overeating: not at all 6. Feeling bad about yourself - or that you are a failure or have let yourself or your family down: not at all 7. Trouble concentrating on things, such as reading the newspaper or watching television: several days 8. Moving or speaking so slowly that other people could have noticed. Or the opposite - being so fidgety or restless that you have been moving around a lot more than usual: not at all 9. Thoughts that you would be better off or of hurting yourself in some way: not at all Total score: 12 Depression Screening Interpretation: Positive Depression Screening Follow-up: Follow-up Visit Requested Depression Screening Done: Yes Source: Developed by Drs. Solo Bach, Payton Ryan Bennett and colleagues, with an educational norris from [employer]. Thrive Questionnaire Date Thrive assessed: 04/20/25 I am a: Patient What is your living situation today?: I have a steady place to live Within the past 12 months, did the food you bought not last and you didn't have the money to get more?: Never true Within the past 12 months, did you worry whether your food would run out before you got money to buy more?: I choose not to answer this question Do you have trouble paying for medicines?: I choose not to answer this question Do you have trouble getting transportation to medical appointments?: I choose not to answer this question Do you have trouble paying your heating and electricity bill?: I choose not to answer this question Do you have trouble taking care of your child, family member or friend?: I choose not to answer this question Do you have trouble with day-to-day activities such as bathing, preparing meals, shopping, managing finances, etc.?: I choose not to answer this question Are you currently unemployed and looking for a job?: I choose not to answer this question Are you interested in more education?: I choose not to answer this question Currently or been in a relationship where the following occur: I choose not to answer THRIVE Score: 0 AUDIT C Alcohol Use Questionnaire (AUDIT-C) 1. How often do you have a drink containing alcohol?: Monthly or less 2. How many drinks containing alcohol do you have on a typical day when you are drinking?: 1 or 2 3. How often do you have six or more drinks on one occasion?: Never Total Score: 1 DYLAN-7 AMB Questionnaire DYLAN-7 Date DYLAN - 7 assessed: 04/20/25 Feeling nervous, anxious, or on edge: 0 = Not at all Not being able to stop or control worryin = Not at all Worrying too much about different things: 0 = Not at all Trouble relaxin = Not at all Being so restless that it is hard to sit still: 0 = Not at all Becoming easily annoyed or irritable: 0 = Not at all Feeling afraid as if something awful might happen: 0 = Not at all Total DYLAN-7 score (0-4 normal; 5-9 mild; 10-14 moderate; 15-21 severe): 0 Source: Developed by Drs. Solo Bach, Payton Lundy, Ryan Vallejo and colleagues, with an educational norris from [employer]. Review of Systems Const Details: Positives besides what was mentioned in HPI are in BOLD Constitutional: No Weight Change, No Fever, No Chills, No Night Sweats, No Fatigue, No Malaise ENT/Mouth: No Hearing Changes, No Ear Pain, No Nasal Congestion, No Sinus Pain, No Hoarseness, No sore throat, No Rhinorrhea, No Swallowing Difficulty Eyes: No Eye Pain, No Swelling, No Redness, No Foreign Body, No Discharge, No Vision Changes Cardiovascular: No Chest Pain, No SOB, No PND, No Dyspnea on Exertion, No Orthopnea, No Claudication, No Edema, No Palpitations Respiratory: No Cough, No Sputum, No Wheezing, No Smoke Exposure, No Dyspnea Gastrointestinal: No Nausea, No Vomiting, No Diarrhea, No Constipation, No Pain, No Heartburn, No Anorexia, No Dysphagia, No Hematochezia, No Melena, No Flatulence, No Jaundice Genitourinary: No Dysmenorrhea, No DUB, No Dyspareunia, No Dysuria, No Urinary Frequency, No Hematuria, No Urinary Incontinence, No Urgency, No Flank Pain, No Urinary Flow Changes, No Hesitancy Musculoskeletal: No Arthralgias, No Myalgias, No Joint Swelling, No Joint Stiffness, No Back Pain, No Neck Pain, No Injury History Skin: No Skin Lesions, No Pruritis, No Hair Changes, No Breast/Skin Changes, No Nipple Discharge Neuro: No Weakness, No Numbness, No Paresthesias, No Loss of Consciousness, No Syncope, No Dizziness, No Headache, No Coordination Changes, No Recent Falls Psych: No Anxiety/Panic, No Depression, No Insomnia, No Personality Changes, No Delusions, No Rumination, No SI/HI/AH/VH, No Social Issues, No Memory Changes, No Violence/Abuse Hx., No Eating Concerns Heme/Lymph: No Bruising, No Bleeding, No Transfusions History, No Lymphadenopathy Endocrine: No Polyuria, No Polydipsia, No Temperature Intolerance Physical exam (Primary Care) Vital Signs: Last Vital Signs Temp 97.1 F 07/06/25 11:08 Pulse 83 07/06/25 11:08 BP 152/108 H 07/06/25 11:08 Pulse Ox 93 07/06/25 11:08 Oxygen Delivery Method Room Air 07/06/25 11:08 BMI result Body Mass Index 32.0 Tobacco/Smoking Status: Tobacco use Status Tobacco use date assessed 07/06/25 07/06/25 11:15 Patient Tobacco Use Status Former Tobacco user 07/06/25 11:15 Tobacco use type Cigarette 07/06/25 11:15 e-Cigarette/Vaping Use Never Used 07/06/25 11:15 PHQ-9: PHQ-9 Score PHQ-9: Total score 12 07/06/25 11:15 Depression Screening Interpretation: Positive Depression Screening Follow-up: Follow-up Visit Requested Thrive Assessment: Date of Thrive Assessment Date Thrive assessed 04/20/25 07/06/25 11:15 Currently or been in a relationship where the following occur: I choose not to answer Const Other: Pertinent findings are in BOLD GENERAL APPEARANCE NAD, activity normal for age, well developed/ well nourished, no cyanosis, pallor, or diaphoresis. EYES lids/conjunctiva normal. EARS/NOSE/THROAT Mucous membranes moist, nares normal, lips/teeth normal uvula midline without oral pharyngeal erythema, exudate or swelling TMs normal bilaterally. No lymphangitis/lymphedema. HEAD/NECK normocephalic atraumatic, no facial trauma, neck is supple. RESPIRATORY respiratory effort normal, speaks in full sentences, no tripod position, no accessory muscle use. Lungs clear to auscultation without rhonchi, wheezes, rales CARDIAC Regular rate and rhythm, no edema. ABDOMINAL Soft, ND/NT. No evidence of fluid wave. No pulsatile masses on exam, rebound tenderness, Smalls sign or pain over Mcburney's point. MUSCLES/EXTREMITIES No abnormal range of motion, no swelling. Chest tenderness on palpation. SKIN Warm, pink and dry. No rashes, dermatoses, petechiae or lesions. NEUROLOGICAL Speech is clear and appropriate. Normal level of consciousness. Gait and coordination are normal. 5/5 strength in all extremities. PSYCH Normal mood and affect. Judgement/competence is appropriate Coding Level of Care Code Est Pt Level 4 (83879) Diagnoses Tobacco use disorder F17.200 Costochondritis M94.0 Urinary frequency R35.0 Esophagitis K20.90 HTN (hypertension) I10 Time Spent (min) 30 Assessment & Plan Assessment & Plan (1) Tobacco use disorder: Code(s): F17.200 - Nicotine dependence, unspecified, uncomplicated Category: Medical Plan: Referred patient to thoracic surgery for yearly CT scan screening. (2) Costochondritis: Code(s): M94.0 - Chondrocostal junction syndrome [Tietze] Category: Medical Plan: Advised patient that his chest pain is most likely MSK in nature. Continue cyclobenzaprine. Added Tylenol. Continue Ibuprofen. Start Omeprazole for esophagitis. His Sx might be GI related as well. (3) Urinary frequency: Code(s): R35.0 - Frequency of micturition Category: Medical Plan: Multiple episodes of nocturia and patient feels he is not emptying his bladder fully. - Initiated on tamsulosin to alleviate symptoms. (4) Esophagitis: Code(s): K20.90 - Esophagitis, unspecified without bleeding Category: Medical Plan: No upper endoscopy report in chart. Patient reported his upper endoscopy showed esophagitis. Start Omeprazole 20 mg. (5) HTN (hypertension): Code(s): I10 - Essential (primary) hypertension Category: Medical Plan: Continue Amlodipine and Metoprolol. Start losartan. Patient developed cough with lisinopril in the past. Plan The patient was informed about the likely musculoskeletal origin of his pain, with reassurance provided regarding the absence of significant cardiac or pulmonary issues based on previous tests. Management options for hypertension were discussed, including the potential addition of losartan to his regimen. The initiation of omeprazole for gastroesophageal reflux disease and tamsulosin for urinary frequency was explained, along with the rationale for lung cancer screening due to his smoking history. Orders: Referrals Thoracic/General Surgery Referral F17.200 - Nicotine dependence, unspecified, uncomplicated Medications: New losartan 25 mg PO DAILY 90 tabs 3RF tamsulosin 0.4 mg PO BEDTIME 90 caps 2RF omeprazole 20 mg PO DAILY 30 caps 3RF acetaminophen (Tylenol) 325 mg PO QID PRN 90 tabs 3RF pain
--- OUTSIDE RECORDS SUMMARY | 2025-07-06 12:58 | XMS_ITS | Patient Health Record ---
Author Organization [facility] Nenaarely Ramirez Address [address] [facility] [place] [address] Care Team Providers Care Tag Writer Name Role Phone Deep Ayon MDneth Primary Care Provider Sonam Johnson Unavailable [phone] Reason For Referral No Information Medications Medication [...] Treatment Pending Test Test Name Order Date ,[id number] TENDON SHEATH/LIGAMENT 1 10/10/2019 Insurance Providers Payer Name Payer Address Payer Phone Subscriber Number Group Number Insured Name Patient Relationship to Insured Coverage Start Date Coverage End Date [facility] [address] [place] [address] [id number] Larry Thibodeaux Self - patient is the insured Medical (General) History Surgical History Surgery Date(Month/Year)
--- OUTSIDE RECORDS SUMMARY | 2025-07-06 12:58 | XMS_ITS | Patient Health Record ---
Author Organization [facility] Address [address] [place] [id number] Care Team Providers Care Steam Tender Name Role Phone Gabo WARD, [place] Primary Care Provider Burke London Jr Allergies No Known Allergies Results Component Value Reference Range Notes Pathology Reviewed date:05/17/2025 08:35:38 AM Interpretation: Performing Lab:[facility], [address] [place] [id number] Notes/Report: Reason For Referral No Information Medications Medication [...] Problem Screening for malignant neoplasm of colon (224152393) Encounter for screening for malignant neoplasm of colon (Z12.11) Active confirmed Problem [id number] Change in bowel habits (R19.4) Active confirmed Problem 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 Problem [id number] GERD without esophagitis (K21.9) Active confirmed Vital Signs Temperature 98.7 degrees Fahrenheit 03/22/2025 Blood pressure diastolic 01 mm Hg 03/22/2025 Height 68 in 03/22/2025 Blood pressure systolic 001 mm Hg 03/22/2025 Weight 226.4 lbs 03/22/2025 BMI 34.42 kg/m2 03/22/2025 Encounters Encounter Location Date Provider Diagnosis [facility] [place] [address] [place] [id number] 05/05/2025 Burke Stewart Jr [facility] [address] [place] [phone] 03/22/2025 Burke Stewart Jr Kent esophagus K22.70 and Encounter for screening for malignant neoplasm of colon Z12.11 [facility] [address] [place] [phone] 05/17/2025 Burke Stewart Jr Assessments Encounter Date Diagnosis (ICD Code) Assessment [...] 08/10/2019 UPPER GI ENDOSCOPY 03/22/2025 COLONOSCOPY 03/22/2025 Insurance Providers Payer Name Payer Address Payer Phone Subscriber Number Group Number Insured Name Patient Relationship to Insured Coverage Start Date Coverage End Date [facility] [address] [place] [phone] [id number] ABHIJIT HENDERSON Self - patient is the insured Medical (General) History Medical History History ICD Code Arthritis Hypertension Kent's esophagus, EGD 11/06 0, no dysplasia, 2-year follow-up. H. pylori infection, treated. Colonoscopy 11/24, normal, 5-year follow- up Chest pain with negative cardiac workup Surgical History Surgery Date(Month/Year)
== END 2025-07-06 11:45 | disposition home or self-care (01) ==
LOC: HO.HMCH 11:02
PROVIDERS: PCP Internal Medicine; Visit Provider Internal Medicine
DX: F17.200 Nicotine dependence, unspecified, uncomplicated (principal); M94.0 Chondrocostal junction syndrome [Tietze]; R35.0 Frequency of micturition; K20.90 Esophagitis, unspecified without bleeding; I10 Essential (primary) hypertension

== ENCOUNTER 2025-07-31 09:18 | Outpatient (AMB) | payer OTHER, SELFPAY ==
--- NOTE | 2025-07-31 09:32 | AM.OFFVISNUR ---
Intake Visit Reasons: Flu Shot Allergies hydrocodone Adverse Reaction (Intermediate, Verified 07/06/25 11:11) nausea,dizziness Office Procedures Flu Questionnaire Does the patient have a severe egg allergy?: No Does the patient have severe life threatening allergies?: No Does the patient have a fever or illness today?: No Has the patient ever had Guillain-Mantee Syndrome?: No Has the patient ever had any past reaction to a flu shot?: No Immunizations Fluarix [id number] (PF) 45 mcg (15 mcg x 3)/0.5 mL IM syringe Performing Provider: Valeriy Ayon MD [facility] Administered by: Ana Maria Easton RN on 07/31/25 09:32 Dose Route Admin Location Dispensed Lot Number Expiration Date [facility] Ip/Mosaic Technician 0.5 mL IM Left Deltoid 0.5 mL [id number] 04/03/26 [id number] [employer] VIS Given Date VIS Provided VIS Publication Date 07/31/25 Single Vaccine 24 Eligibility Eligibility Date Funding Source Not [facility] Eligible 07/31/25 Private Assessment & Plan Assessment & Plan Orders: Orders Influenza [id number] Immunization Today Z23 - Encounter for immunization Coding
--- OUTSIDE RECORDS SUMMARY | 2025-07-31 10:16 | XMS_ITS | Encounter Summary ---
Author Organization [facility] Address [address] [facility] [address] [place] [address] Phone Care Team Providers Care Emergency Spill Response Technician Name Role Phone Valeriy Ayon MD Primary Care Provider [phone] Encounter Details Date Type Department Care Team (Late st Contact Info) Description 12/27/2024 Procedure Pass Echo Lab [place] [place], [place] [id number] Social History Tobacco Use Types Packs/Day Years Used Date Smoking Tobacco: Never Smokeless Tobacco: Never Education Answer Date Recorded Are you interested [...] on file Sexual Orientation Not on file documented as of this encounter Plan of Treatment Upcoming Encounters Date Type Department Care Team (Late st Contact Info) Description 12/11/2025 8:00 AM EDT Office Visit [facility] [address] Floor, [address] [place], [place] [phone] Paul Bustamante, DO 22 [facility] [address] [place] [address] documented as of this encounter Visit Diagnoses Not on filedocumented in this encounter Care Teams Emergency Spill Response Technician Relationship Specialty Start Date End Date Valeriy Ayon MD [address] [place] [address] [place] [address] PCP - General Internal Medicine 12/26/24 documented as of this encounter Additional Source Comments The information contained in this document represents components of the legal health record. It is not the complete legal health record.[facility]
--- OUTSIDE RECORDS SUMMARY | 2025-07-31 10:16 | XMS_ITS | Clinical Summary ---
Author Organization [facility] Address [address] [place] [address] [place] [address] Phone Care Team Providers Care Non Destructive Testing Supervisor Name Role Phone Valeriy Ayon MD Primary Care Provider [phone] Allergies No known active allergies Medications amLODIPine [...] 11:59 PM EDT Hospital Encounter [facility] [address]rd [place] [address] Paul Bustamante, DO Discharge Disposition: Home or Self Care from Last 3 Months Social History Tobacco [...] Description 12/11/2025 8:00 AM EDT Office Visit [facility] [address] [facility] 3rd Floor, [address] [place] [phone] Paul Bustamante DO 22 [facility] [address] [place] [address] [email or web address] Health Maintenance Due Date Last Done Comments [...] 01/17/2020 ZOSTER VACCINES (1 of 2) 01/17/2020 INFLUENZA VACCINE (#1) 2025 COVID-19 VACCINE ( - 2024-2 6 season) 2025 BLOOD PRESSURE 09/16/2025 03/17/2025 RSV VACCINE (1 - 1-dose 75+ series) 2045 SMOKING STATUS SCREENING (On ce After 26 [...] Routine 05/24/2025 8:51 AM EDT Localized edema from Last 3 Months Results * US Lower Extremity Veins Reflux Evaluation Duplex Complete (Bilateral) (05/24/2025 8:51 AM EDT) Height 173 cm Weight 101 kg GSV Sapheno-Femoral Junction Carline AntPost 0.6 cm Prox Great Saphenous Vein Thigh Valve Closure Time 0.5 sec Prox Great Saphenous Vein Thigh Diameter Anterior-Creative Recruiter ior 0.5 cm Mid Great Saphenous Vein Thigh Valve Closure Time 0.6 sec Mid Great Saphenous Vein Thigh Diameter Anterior-Creative Recruiter ior 0.3 cm Knee Great Saphenous Vein Valve Closure Time 4.5 sec Knee Great Saphenous Vein Diameter Anterior-Creative Recruiter ior 0.2 cm Prox Great Saphenous Vein Calf Diameter Anterior-Creative Recruiter ior 0.2 cm Mid Great Saphenous Vein Calf Diameter Anterior-Creative Recruiter ior 0.2 cm Popliteal Fossa GSV Anterior-Creative Recruiter ior 0.2 cm Mid Small Saphenous Vein Calf Diameter Anterior-Creative Recruiter ior 0.2 cm GSV Sapheno-Femoral Diameter Anterior-Creative Recruiter ior 0.7 cm Prox Great Saphenous Vein Thigh Valve Closure Time 2.9 sec Prox Great Saphenous Vein Thigh Diameter Anterior-Creative Recruiter ior 0.5 cm Mid Great Saphenous Vein Thigh Valve Closure Time 3.6 sec Mid Great Saphenous Vein Thigh Diameter Anterior-Creative Recruiter ior 0.4 cm Dist Great Saphenous Vein Thigh Valve Closure Time 4.3 sec Dist Great Saphenous Vein Thigh Diameter Anterior-Creative Recruiter ior 0.3 cm Knee Great Saphenous Vein Closure time 1.6 sec Knee Great Saphenous Vein Diameter Anterior-Creative Recruiter ior 0.3 cm Prox Great Saphenous Vein Calf Valve Closure Time 2.0 sec Prox Great Saphenous Vein Calf Diameter Anterior-Creative Recruiter ior 0.3 cm Mid Small Saphenous Vein Calf Valve Closure Time 0.9 sec Mid Small Saphenous Vein Calf Diameter Anterior-Creative Recruiter ior 0.2 cm Anatomical Region Laterality Modality [...] color flow Doppler and spectral waveform Doppler. Paul Bustamante DO CV US VASCULAR Final Result from Last 3 Months Insurance [facility] Care Teams Non Destructive Testing Supervisor Relationship Specialty Start Date End Date Valeriy Ayon MD [address] [place] [address] PCP - General Internal Medicine 12/26/24 Additional Source Comments The information contained in this document represents components of the legal health record. It is not the complete legal health record.[facility]
== END 2025-07-31 09:33 | disposition home or self-care (01) ==
LOC: HO.HMCH 09:19
PROVIDERS: PCP Internal Medicine
DX: Z23 Encounter for immunization (principal)

== ENCOUNTER → 2025-07-31 09:18 | Outpatient (BNVA) | payer OTHER, SELFPAY | PROVIDERS: PCP Internal Medicine | DX: Z23 Encounter for immunization (principal) | CPT/HCPCS: 90471; 90656 ==

== ENCOUNTER 2025-08-15 08:08 | Outpatient (REF) | payer OTHER, SELFPAY ==
--- OUTSIDE RECORDS SUMMARY | 2025-05-05 03:30 | XMS_ITS ---
Author Organization [facility] Address [address] [place] [id number] Care Team Providers Care Commercial Diver Name Role Phone Gabo WARD, Valeriy Primary Care Provider Burke London Jr REASON FOR VISIT saleem's,screening Encounters Encounter Location Date Provider Diagnosis [facility] Outpatient [address] [place] [phone] 05/05/2025 Burke Stewart Jr Plan Of Treatment No Information Progress Notes * ABHIJIT ALEMANDOB: 0 (55 yo M)Acc No.[id number]:05/05/2025 EGD and COL/MAC Patient: ABHIJIT GOMEZ Provider: Mohinder Stewart MD :1970 A ge:55 Y S ex:Male Date:05/05/2025 Address:[address] [place], [place] [phone] Pcp:Valeriy Ayon MD Subjective: * Chief Complaints: * 1 . Saleem's,screening. * Medical History: Objective: * Vitals: Assessment: Plan: * Treatment: * * The named appointment provid er may or may not be the originator of this progress note, and it is not deemed complete until electronically signed by the appointment provider. Sign off status: Pending * Provider: Mohinder Stewart MD Date: 0 05/05/2025 Generated for Printi ng/Fasamirg/eTransmitting on: 10/15/2024 08:11 AM EST
--- OUTSIDE RECORDS SUMMARY | 2025-08-15 08:12 | XMS_ITS | Clinical Summary ---
Author Organization [facility] Address [address] [place] [address] [place] [address] Phone Care Team Providers Care Momd Teacher Name Role Phone Valeriy Ayon MD Primary Care Provider [phone] Allergies No known active allergies Medications amLODIPine [...] 11:59 PM EDT Hospital Encounter [facility] [address] 3rd [place] [address] Paul Bustamante, DO Discharge Disposition: Home or [...] Description 12/11/2025 8:00 AM EDT Office Visit [facility] [address] [facility] 3rd Floor, [address] [place] [phone] Paul Bustamante DO 22 [facility] [address] [place] [address] [email or web address] Health Maintenance Due Date Last Done Comments [...] on patient's age to complete this topic IPV VACCINES Aged Out No longer eligi ble [...] cm Weight 101 kg GSV Sapheno-Femoral Junction Carlnie AntPost 0.6 cm Prox Great Saphenous Vein Thigh Valve Closure Time 0.5 sec Prox Great Saphenous Vein Thigh Diameter Anterior-Army Manager ior 0.5 cm Mid Great Saphenous Vein Thigh Valve Closure Time 0.6 sec Mid Great Saphenous Vein Thigh Diameter Anterior-Army Manager ior 0.3 cm Knee Great Saphenous Vein Valve Closure Time 4.5 sec Knee Great Saphenous Vein Diameter Anterior-Army Manager ior 0.2 cm Prox Great Saphenous Vein Calf Diameter Anterior-Army Manager ior 0.2 cm Mid Great Saphenous Vein Calf Diameter Anterior-Army Manager ior 0.2 cm Popliteal Fossa GSV Anterior-Army Manager ior 0.2 cm Mid Small Saphenous Vein Calf Diameter Anterior-Army Manager ior 0.2 cm GSV Sapheno-Femoral Diameter Anterior-Army Manager ior 0.7 cm Prox Great Saphenous Vein Thigh Valve Closure Time 2.9 sec Prox Great Saphenous Vein Thigh Diameter Anterior-Army Manager ior 0.5 cm Mid Great Saphenous Vein Thigh Valve Closure Time 3.6 sec Mid Great Saphenous Vein Thigh Diameter Anterior-Army Manager ior 0.4 cm Dist Great Saphenous Vein Thigh Valve Closure Time 4.3 sec Dist Great Saphenous Vein Thigh Diameter Anterior-Army Manager ior 0.3 cm Knee Great Saphenous Vein Closure time 1.6 sec Knee Great Saphenous Vein Diameter Anterior-Army Manager ior 0.3 cm Prox Great Saphenous Vein Calf Valve Closure Time 2.0 sec Prox Great Saphenous Vein Calf Diameter Anterior-Army Manager ior 0.3 cm Mid Small Saphenous Vein Calf Valve Closure Time 0.9 sec Mid Small Saphenous Vein Calf Diameter Anterior-Army Manager ior 0.2 cm Anatomical Region Laterality Modality [...] Final Result from Last [address] [place] [address]O [facility] HMO Care Teams Momd Teacher Relationship Specialty Start Date End Date Valeriy Ayon MD [address] [place] [address] [place] [address] [place] [address] PCP - General Internal Medicine 12/26/24 Additional Source Comments The information contained in this document represents components of the legal health record. It is not the complete legal health record.[facility]
--- OUTSIDE RECORDS SUMMARY | 2025-08-15 08:12 | XMS_ITS | Patient Health Record ---
Author Organization [facility] Address [address] [place] [phone] Care Team Providers Care Ranch Supervisor Name Role Phone Gabo WARD, [place] Primary Care Provider Burke London Jr Allergies No Known Allergies Results Component Value Reference Range Notes Pathology Reviewed date:05/17/2025 08:35:38 AM Interpretation: Performing Lab:[facility], [address] [place] [phone] Notes/Report: Reason For Referral No Information Medications Medication SIG (Take, Route, Frequency, Duration) Notes Start Date End Date Status Ibuprofen 200 MG 1 tablet with food o r milk as needed Orally prn Active Metoprolol Succinate ER 50 MG Oral; Duration: 30 Days Acti ve amLODIPine Besylate 10 MG TAKE 1 TABLET BY MOUTH DAILY Oral; Duration: 30 Days Active Loratadine 10 MG TAKE 1 TABLET BY MIGUEL TH EVERY DAY NEEDED FOR ALLERGY Oral; Duration: 30 Days Active amLODIPine Besylate 10 MG Oral; Duration: 30 Days Active Immunizations Vaccine Route Administration [...] Problem Screening for malignant neoplasm of colon (371778780) Encounter for screening for malignant neoplasm of colon (Z12.11) Active confirmed Problem Change in bowel habit (80762924) Change in bowel habits (R19.4) Active confirmed Problem 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 Outpatient [address] [place] [id number] 05/05/2025 Burke Stewart Jr [facility] [address] [place] [phone] 03/22/2025 Burke Stewart Jr Kent esophagus K22.70 and Encounter for screening for malignant neoplasm of colon Z12.11 [facility] [address] [facility] [place] [phone] 05/17/2025 Burke Stewart Jr Assessments Encounter Date [...] Insured Coverage Start Date Coverage End Date [facility] [address] [place] [address] [phone] [id number] ABHIJIT HENDERSON Self - patient is the insured Medical (General) History Medical History History ICD Code Arthritis Hypertension Kent's esophagus, EGD 11/06 0, no dysplasia, 2-year follow-up. H. pylori infection, treated. Colonoscopy 11/24, normal, 5-year follow- up Chest pain with negative cardiac workup Surgical History Surgery Date(Month/Year)
--- OUTSIDE RECORDS SUMMARY | 2025-08-15 08:12 | XMS_ITS | Patient Health Record ---
Author Organization [facility] Address [address] [facility] [place] [address] Care Team Providers Care Piece Work Inspector Name Role Phone Deep Ayon MDneth Primary Care Provider Sonam Johnson Unavailable [phone] Reason For Referral No Information Medications Medication [...] Treatment Pending Test Test Name Order Date ,[id number] TENDON SHEATH/LIGAMENT 1 10/10/2019 Insurance Providers Payer Name Payer Address Payer Phone Subscriber Number Group Number Insured Name Patient Relationship to Insured Coverage Start Date Coverage End Date [facility] [address] [place] [address] [id number] Larry Thibodeaux Self - patient is the insured Medical (General) History Surgical History Surgery Date(Month/Year)
--- OUTSIDE RECORDS SUMMARY | 2025-08-15 08:12 | XMS_ITS | Encounter Summary ---
Author Organization [facility] Address [address] [facility] [address] [place] [address] Phone Care Team Providers Care Multicraft Operator Name Role Phone Valeriy Ayon MD Primary Care Provider [phone] Encounter Details Date Type Department Care Team (Late st Contact Info) Description 12/27/2024 Procedure Pass Echo Lab [address] [place], [place] [phone] Social History Tobacco Use Types Packs/Day Years [...] Description 12/11/2025 8:00 AM EDT Office Visit [facility] [address] Floor, [address] [place], [place] [phone] Paul Bustamante, DO 22 [facility] [address] [place] [address] documented as of this encounter Visit Diagnoses Not on filedocumented in this encounter Care Teams Multicraft Operator Relationship Specialty Start Date End Date Valeriy Ayon MD [address] [place] [address] [place] [address] PCP - General Internal Medicine 12/26/24 documented as of this encounter Additional Source Comments The information contained in this document represents components of the legal health record. It is not the complete legal health record.[facility]
[2025-08-15 08:21] LABS: MANUAL DIFF FLAG NO
[2025-08-15 08:43] LABS: Hematocrit 44.9 % (42.0-52.0); Hemoglobin 15.1 g/dl (14.0-18.0); Imm Gran Abs Auto 0.04 X10*3/uL (0.00-0.03); Imm Gran Pct Auto 0.6 % (0.0-0.4); Lymphocytes Absolute Auto 2.3 X10*3/uL (1.2-4.9); Mean Corpuscular HGB Conc 33.6 g/dl (31.0-36.0); Mean Corpuscular Hemoglobin 31.5 pg (27.0-33.0); Mean Corpuscular Volume 93.5 fL (80.0-98.0); NRBC Abs Auto 0.000 X10*3/uL (0.0-0.012); NRBC Pct Auto 0.0 /100WBC (0.0-0.2); Platelet Count 242 X10*3/uL (160-400); Red Blood Count 4.80 X10*6/uL (4.60-5.80); White Blood Count 7.2 X10*3/uL (4.8-10.8)
[2025-08-15 08:55] LABS: Appearance Urine Clear; Glucose Urine UA Negative (Negative); PH 7.5 (5.0-9.0); Specific Gravity - Urine 1.020 (1.005-1.025)
[2025-08-15 09:29] LABS: Alanine Aminotransferase 55 U/L (0-40); Albumin Level 4.3 g/dL (3.5-5.0); Alkaline Phosphatase 83 U/L (39-117); Anion Gap 11 (12-20); Aspartate Amino Transferase 37 U/L (5-37); Blood Urea Nitrogen 18 mg/dL (9-16); Calcium 9.1 mg/dL (8.4-10.2); Carbon Dioxide 28 mmol/L (22-29); Chloride 105 mmol/L (96-108); Cholesterol 179 mg/dL (<200); Estimated Glomerular Filt Rate > 60; HDL Cholesterol 46 mg/dL (>40); Potassium 4.4 mmol/L (3.3-5.1); Sodium 140 mmol/L (135-145); Total Protein 6.8 g/dL (6.5-8.0); Triglycerides 92 mg/dL (<150)
[2025-08-24 09:04] LABS: FIB-ALT 40 U/L (9-46); FIB-Alpha-2-Macroglobulin 148 mg/dL (106-279); FIB-Apolipoprotein A1 162 mg/dL (94-176); FIB-GGT 29 U/L (3-85); FIB-Haptoglobin 118 mg/dL (43-212); FIB-Total Bilirubin 0.6 mg/dL (0.2-1.2); Liver Fibrosis Score 0.16; Liver Fibrosis Stage F0; Nec Inflam Act Grade A0-A1; Nec Inflam Act Score 0.18
== END 2025-08-15 08:09 | disposition home or self-care (01) ==
LOC: HO.LAB 08:08
PROVIDERS: PCP Internal Medicine; Visit Provider Internal Medicine
DX: E11.9 Type 2 diabetes mellitus without complications (principal); D64.9 Anemia, unspecified; E78.00 Pure hypercholesterolemia, unspecified; R79.89 Other specified abnormal findings of blood chemistry; E55.9 Vitamin D deficiency, unspecified; R30.0 Dysuria
CPT/HCPCS: 36415; 80053; 80061; 81003; 81596; 82306; 83036; 84443; 85025

== ENCOUNTER 2025-08-24 14:53 | Outpatient (AMB) | payer OTHER, SELFPAY ==
--- OUTSIDE RECORDS SUMMARY | 2025-05-05 03:30 | XMS_ITS ---
Author Organization [facility] Address [address] [place] [phone] Care Team Providers Care Tube Winder Hand Name Role Phone Gabo WARD, Valeriy Primary Care Provider Burke London Jr REASON FOR VISIT saleem's,screening Encounters Encounter Location Date Provider Diagnosis [facility] [place] [address] [place] [phone] 05/05/2025 Burke Stewart Jr Plan Of Treatment No Information Progress Notes * ABHIJIT ALEMANDOB: 0 (55 yo M)Acc No.[id number]:05/05/2025 EGD and COL/MAC Patient: ABHIJIT GOMEZ Provider: Mohinder Stewart MD :1970 A ge:55 Y S ex:Male Date:05/05/2025 Address:[address] [place], [place] [phone] Pcp:Valeriy Ayon MD Subjective: * Chief Complaints: * B arrett's,screening Billing Information: * Procedure Codes: * The named appointment provid er may or may not be the originator of this progress note, and it is not deemed complete until electronically signed by the appointment provider. Sign off status: Pending * Provider: Mohinder Stewart MD Date: 0 05/05/2025 Generated for Printi ng/Faxing/eTransmitting on: 10/24/2024 08:23 PM EST
[2025-08-24 15:28] VITALS: BP 116/74; PULSE 100; RESP 18; O2SAT 95; BMI 33.8
--- NOTE | 2025-08-24 15:28 | MHC.PC.OV ---
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 Accompanied by: Self / Same As Patient Allergies hydrocodone Adverse Reaction (Intermediate, Verified 08/24/25 15:40) nausea,dizziness Medication List - Last Reconciled 08/24/25 by LONNY Zurita acetaminophen (Tylenol) 325 mg PO QID PRN amlodipine 10 mg PO DAILY cyclobenzaprine 5 mg PO BEDTIME PRN fluticasone propionate 50 mcg/actuation 1 spray intranasal BID ibuprofen 800 mg PO TID PRN loratadine (Allergy Relief (loratadine)) 10 mg PO DAILY PRN losartan 25 mg PO DAILY metoprolol succinate ER 50 mg PO DAILY multivitamin 1 tab PO DAILY omeprazole 20 mg PO DAILY tamsulosin 0.4 mg PO BEDTIME Tobacco use date assessed: 08/24/25 Dental Screening Dental Screen Date: 08/24/25 Did you have a dental visit in the last 12 months?: Yes Did you have a dental problem in the last 6 months where you did not have access to dental care?: No Was dental information given to patient?: Patient has dentist HPI HPI Comments History of Present Illness Details History of Present Illness The patient is a 55 year old individual presenting for review of lab results and management of chronic pain. Recent lab results show an HbA1c that has increased slightly from a previous value of 5.9, remaining in the prediabetic range. Cholesterol levels have also risen slightly. The patient's vitamin D level dropped from 78 to 33, which is still within the normal range. 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 The patient reports a history of allergic rhinitis with symptoms of sneezing and difficulty breathing. Symptoms have recently recurred with the change in season to fall. The patient previously used a nasal spray but ran out. The patient has a history of chronic bilateral knee pain, for which the patient previously received cortisone shots that provided good, but temporary, relief. The pain has returned and the patient describes a feeling of swelling and stiffness in his knees. The patient also experiences chronic left shoulder pain described as a cramp, and has undergone physical therapy which provided some relief. There is also associated neck pain, which is not as severe as it was previously, and for which the patient has had pain management interventions and X-rays. The patient acknowledges that excess weight contributes to the knee pain. Past medical history is notable for a hospital visit for chest pain. Health Maintenance - Prediabetes Management: Discussed need for diet modification and increased physical activity to prevent progression to diabetes. - Weight Management: Discussed the benefit of weight loss for reducing pain in the knees. - Supplementation: The patient is taking vitamin D supplements. - Lab Monitoring: Reviewed recent results for HbA1c, cholesterol, vitamin D, and urinalysis. Social History - Exercise: The patient reports feeling better when more active but has difficulty with stairs. 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 - Diet: A stricter diet has been recommended, though the patient notes upcoming holidays may be challenging. Results - Labs: - HbA1c: Previously 5.9, now slightly elevated but still in the prediabetic range. - Cholesterol: Slightly increased. - Vitamin D: 33 ng/mL (previously 78 ng/mL). - Urinalysis: Normal. - Imaging: - X-rays of the neck were done previously. [facility] [place] Medical History History of Helicobacter pylori infection Obesity (BMI 30-39.9) HTN (hypertension) Personal history of nicotine dependence Right knee pain RBBB Chest pain Lumbar degenerative disc disease Pure hypercholesterolemia Cervical disc disease Allergic rhinitis Occipital headache Achilles tendinitis Rotator cuff arthropathy of left shoulder Surgical History History of esophagogastroduodenoscopy (EGD) (11/2019) History of colonoscopy Family History Father CVD (cardiovascular disease) Mother Diabetes Brain tumor Social History Household Members: Family Housing: House Are you a primary primary health care nurse to a significant other at home: No Do you presently have visiting nurse or other home services: No 75 years or older and lives alone: No Alcohol intake: current Alcohol intake frequency: holidays/special occasions only Patient Tobacco Use Status: Former Tobacco user Tobacco use type: Cigarette e-Cigarette/Vaping Use: Never Used Second Hand Smoke Exposure: Yes service: No Current occupational status: employed Current occupational exposures/hazards: No Cognitive needs: No Hearing needs: No Vision needs: Yes Questionnaire PHQ-9 Over the last 2 weeks, how often have you been bothered by any of the following problems? 1. Little interest or pleasure in doing things: nearly every day 2. Feeling down, depressed, or hopeless: nearly every day 3. Trouble falling or staying asleep, or sleeping too much: nearly every day 4. Feeling tired or having little energy: more than half the days 5. Poor appetite or overeating: not at all 6. Feeling bad about yourself - or that you are a failure or have let yourself or your family down: not at all 7. Trouble concentrating on things, such as reading the newspaper or watching television: several days 8. Moving or speaking so slowly that other people could have noticed. Or the opposite - being so fidgety or restless that you have been moving around a lot more than usual: not at all 9. Thoughts that you would be better off or of hurting yourself in some way: not at all Total score: 12 Depression Screening Interpretation: Positive Depression Screening Follow-up: Follow-up Visit Requested Depression Screening Done: Yes Source: Developed by Drs. Solo Bach, Payton Lundy, Ryan Vallejo and colleagues, with an educational norris from [employer]. Thrive Questionnaire Date Thrive assessed: 08/24/25 I am a: Patient What is your living situation today?: I have a steady place to live Within the past 12 months, did the food you bought not last and you didn't have the money to get more?: Never true Within the past 12 months, did you worry whether your food would run out before you got money to buy more?: I choose not to answer this question Do you have trouble paying for medicines?: I choose not to answer this question Do you have trouble getting transportation to medical appointments?: I choose not to answer this question Do you have trouble paying your heating and electricity bill?: I choose not to answer this question Do you have trouble taking care of your child, family member or friend?: I choose not to answer this question Do you have trouble with day-to-day activities such as bathing, preparing meals, shopping, managing finances, etc.?: I choose not to answer this question Are you currently unemployed and looking for a job?: I choose not to answer this question Are you interested in more education?: I choose not to answer this question Currently or been in a relationship where the following occur: I choose not to answer THRIVE Score: 0 AUDIT C Alcohol Use Questionnaire (AUDIT-C) 1. How often do you have a drink containing alcohol?: Monthly or less 2. How many drinks containing alcohol do you have on a typical day when you are drinking?: 1 or 2 3. How often do you have six or more drinks on one occasion?: Never Total Score: 1 DYLAN-7 AMB Questionnaire DYLAN-7 Date DYLAN - 7 assessed: 04/20/25 Feeling nervous, anxious, or on edge: 0 = Not at all Not being able to stop or control worryin = Not at all Worrying too much about different things: 0 = Not at all Trouble relaxin = Not at all Being so restless that it is hard to sit still: 0 = Not at all Becoming easily annoyed or irritable: 0 = Not at all Feeling afraid as if something awful might happen: 0 = Not at all Total DYLAN-7 score (0-4 normal; 5-9 mild; 10-14 moderate; 15-21 severe): 0 Source: Developed by Drs. Solo Bach, Payton Lundy, Ryan Vallejo and colleagues, with an educational norris from [employer]. Review of Systems Narrative Review of Systems - Respiratory: Reports difficulty breathing, likely related to nasal congestion. - Allergic/Immunologic: Reports recurrent episodes of sneezing several times in a row, multiple times a day, particularly in the fall. - Musculoskeletal: Reports bilateral knee pain with associated swelling and stiffness. - Reports cramping pain in the left shoulder. - Reports neck pain. - Constitutional: Reports increased energy and mood when vitamin D levels were higher. Const Denies chills, Denies fatigue, Denies fever(s), Denies headache(s), Denies malaise and Denies weakness Eyes Denies blurry vision, Denies change in vision, Denies irritation and Denies itchy eyes ENT Denies dysphagia, Denies dizziness, Denies otalgia, Denies headache(s), Denies nasal congestion, Reports neck pain (chronic), Denies odynophagia and Denies sore throat Card Denies chest pain, Denies rapid heart rate, Denies irregular heart rhythm, Denies palpitations and Denies dyspnea Resp Denies chest congestion, Denies cough, Denies dyspnea and Denies wheezing GI Denies abdominal pain, Denies bloating, Denies constipation, Denies dysphagia, Denies heartburn, Denies diarrhea, Denies nausea, Denies odynophagia and Denies vomiting Denies hematuria, Denies difficulty urinating, Denies dysuria, Denies urinary frequency and Denies urinary urgency Musc Denies back pain, Reports arthralgias (Bilateral knees and left shoulder), Denies joint swelling, Denies muscle weakness and Reports neck pain (chronic) Skin/Breast Denies change in pigmentation, Denies lesions, Denies rash and Denies unusual bruising Neuro Denies dizziness, Denies headache(s), Denies paresthesias and Denies weakness Endo Denies fatigue and Denies palpitations Aller/Immun Denies itchy eyes and Denies wheezing Physical exam (Primary Care) Vital Signs: Last Vital Signs Pulse 100 08/24/25 15:28 Resp 18 08/24/25 15:28 BP 116/74 08/24/25 15:28 Pulse Ox 95 08/24/25 15:28 Oxygen Delivery Method Room Air 08/24/25 15:28 BMI result Body Mass Index 33.8 Tobacco/Smoking Status: Tobacco use Status Tobacco use date assessed 08/24/25 08/24/25 15:36 Patient Tobacco Use Status Former Tobacco user 08/24/25 15:36 Tobacco use type Cigarette 08/24/25 15:36 e-Cigarette/Vaping Use Never Used 08/24/25 15:36 PHQ-9: PHQ-9 Score PHQ-9: Total score 12 08/24/25 15:41 Depression Screening Interpretation: Positive Depression Screening Follow-up: Follow-up Visit Requested Thrive Assessment: Date of Thrive Assessment Date Thrive assessed 08/24/25 08/24/25 15:36 Currently or been in a relationship where the following occur: I choose not to answer Narrative Physical Exam - Respiratory: Lungs are clear to auscultation bilaterally. Const General: no acute distress, alert and awake Orientation/consciousness: patient oriented x3 HENMT Head: Yes normocephalic and Yes atraumatic Ears: external ears normal, TM's normal bilaterally and EAC's normal General nose exam: No nasal discharge present Face and sinus: Yes normal facial exam and Yes sinuses nontender Teeth and gingiva: dentition normal Throat: Yes posterior oropharynx normal and Yes tonsils normal (no TP congestion) Eyes Eyelids: Yes eyelids normal Conjunctivae: conjunctivae normal Pupils: Equal, round and reactive pupils present EOM: EOMs intact bilaterally Neck Neck: No lymphadenopathy and Yes tender Thyroid: Thyroid normal Resp Auscultation: clear to auscultation bilaterally, no rales and no wheezes Cardio Rate: regular rate Rhythm: regular rhythm Heart sounds: no murmurs GI Palpation (GI): Soft to palpation, nontender and No hepatosplenomegaly present Auscultation: normal bowel sounds General: Yes no CVA tenderness Back/Spine/Pelvis Back: no CVA tenderness Cervical Spine: cervical muscular tenderness Thoracic/Lumbar Spine: No lumbar spinal tenderness Skin Lesions: no lesions Rashes: no rashes Neuro General: patient oriented x3, moves all extremities, no focal motor deficits and CN's II-XI intact bilaterally Cranial nerves: Yes Equal, round and reactive pupils present Cognition (Neuro): normal cognition Gait exam (Neuro): Normal gait present Extrem General: Yes no clubbing, cyanosis or edema Left upper extremity: shoulder/upper arm Details: tenderness Location: of the A-C joint; no swelling Right lower extremity: knee Details: tenderness Location: of the pre-patellar area; no swelling Left lower extremity: knee Details: tenderness; no swelling Results Reviewed Results Reviewed: Laboratory Tests 08/15/25 08/15/25 08:14 08:19 WBC 7.2 RBC 4.80 Hgb 15.1 Hct 44.9 MCV 93.5 MCH 31.5 MCHC 33.6 RDW 12.2 Plt Count 242 MPV 10.8 Sodium 140 Potassium 4.4 Chloride 105 Carbon Dioxide 28 Anion Gap 11 L BUN 18 H Creatinine 0.91 Estimated GFR > 60 Fasting Glucose 122 H Estimat Average Glucose 128 Hemoglobin A1c % 6.1 H Calcium 9.1 Total Bilirubin 1.0 AST 37 ALT 55 H Alkaline Phosphatase 83 Liver GGT 29 Liver Total Bilirubin 0.6 Liver Apolipoprotein A1 162 Liver Fibrosis ALT 40 Liver d-8-[id number] 148 Liver Haptoglobin 118 Liver Fibrosis Score 0.16 Necroinflammator Score 0.18 Total Protein 6.8 Albumin 4.3 Triglycerides 92 Cholesterol 179 LDL Cholesterol, Calc 115 H HDL Cholesterol 46 25-OH Vitamin D Total 33.0 TSH 2.26 Urine Color Yellow Urine Appearance Clear Urine pH 7.5 Ur Specific [place] 1.020 Urine Protein Negative Urine Glucose (UA) Negative Urine Ketones Negative Urine Blood Negative Urine Nitrite Negative Ur Leukocyte Esterase Negative Coding Level of Care Code Est Pt Level 4 (29478) Diagnoses Pure hypercholesterolemia E78.00 Benign essential hypertension I10 Impaired fasting glucose R73.01 Elevated LFTs R79.89 Chest pain, unspecified type R07.9 Chest pain type: unspecified Allergic rhinitis, unspecified seasonality, unspecified trigger J30.9 Allergic rhinitis trigger: unspecified Allergic rhinitis seasonality: unspecified Rotator cuff arthropathy of left shoulder M12.812 Cervical disc disease M50.90 Degeneration of intervertebral disc of lumbar region with discogenic back pain M51.360 Disc-related pain type: discogenic back pain only Insomnia, unspecified type G47.00 Insomnia type: unspecified Obesity (BMI 30-39.9) E66.9 Bilateral anterior knee pain M25.561; M25.562 Time Spent (min) 39 Assessment & Plan Assessment & Plan (1) Pure hypercholesterolemia: Code(s): E78.00 - Pure hypercholesterolemia, unspecified Category: Medical Plan: Triglycerides decreased from 192 to 92 mm per dL, LDL increased from 94 to 115 mg/dL Discussed lifestyle modifications including dietary changes and physical activity Will recheck his fasting lipids and labs in 4 months for follow up (2) Benign essential hypertension: Code(s): I10 - Essential (primary) hypertension Category: Medical Plan: Reinforced low sodium diet - goal is systolic BP of 120 mm or less Continue Amlodipine 10 mg QD and Metoprolol ER 50 mg QD Patient is reminded to continue monitoring his blood pressure regularly (3) Impaired fasting glucose: Code(s): R73.01 - Impaired fasting glucose Category: Medical Plan: The patient's HbA1c is 6.1%, trending upwards from 5.9, remaining in the prediabetic range. The plan is to implement a stricter diet and increase physical activity to prevent progression to diabetes. Will recheck his FBS and his HgbA1c again in 4 months for follow up (4) Elevated LFTs: Code(s): R79.89 - Other specified abnormal findings of blood chemistry Category: Medical Plan: AST decreased from 40-39 and ALT decreased from 67-55 Liver enzymes are improving, avoid alcohol, limit Tylenol or medication containing Tylenol, fatty foods intake (5) Chest pain: Comment: cardiac testing done at [facility] 11/2024 Code(s): R07.9 - Chest pain, unspecified Category: Medical Qualifiers: Chest pain type: unspecified Qualified Code(s): R07.9 - Chest pain, unspecified Plan: States that his previous recurrent left-sided chest pains were most likely musculoskeletal in etiology He was previously referred to cardiology for further evaluation and was seen by cardiology in [place] a few months ago States that his cardiac work ups all came back negative (6) Allergic rhinitis: Code(s): J30.9 - Allergic rhinitis, unspecified Category: Medical Qualifiers: Allergic rhinitis trigger: unspecified Allergic rhinitis seasonality: unspecified Qualified Code(s): J30.9 - Allergic rhinitis, unspecified Plan: Continue OTC Loratadine 10 mg QD PRN and/or Fluticasone 50 mcg nasal spray QD PRN (7) Rotator cuff arthropathy of left shoulder: Code(s): M12.812 - Other specific arthropathies, not elsewhere classified, left shoulder Category: Medical Plan: Left shoulder MRI done back in May 2022 revealed (+) mild supraspinatus tendinosis that is unchanged from previous with no measurable rotator cuff tendon tear. There is also moderate acromioclavicular osteoarthritis, slightly progressed from previous, with tiny subacromial spurs and (+) subacromial-subdeltoid bursitis, slightly more prominent when compared to the prior MRI. There is also increasing irregular fraying through the anterior and anteroinferior labrum, with (+) small glenohumeral joint effusion noted as well He was referred to physical therapy but he did not complete his sessions as he felt they were too expensive and he is just continuing with the exercise he learned from PT on his own whenever he can Repeat left shoulder MRI was denied by his insurance last year Continue Ibuprofen 800 mg TID PRN and Cyclobenzaprine 5 mg TID PRN Follow up with orthopedics as scheduled (8) Cervical disc disease: Code(s): M50.90 - Cervical disc disorder, unspecified, unspecified cervical region Category: Medical Plan: Patient still has on and off numbness and tingling sensation of the right arm related to his cervical disc disease Cervical MRI done in May 2022 revealed (+) mild lordotic reversal centered at C4-C5 with slight retrolisthesis at C6-C7, with multilevel DDD and spondylosis. There are multilevel posterior disc osteophyte complex asymmetric to the left between C3-C4 and C5-C6 inclusive and disc protrusions at C2-C3, C6-C7 and T2-T3 with mild canal stenosis at C6-C7. No spinal cord impingement. Mild spondylitic myelomalacia on the left suspected at C5-C6. (+) multilevel DJD as discussed above with extensive multilevel bilateral bony neural foraminal stenosis, left more than right and left lateral recess stenosis most apparent at C4-C5 and C5-C6 and to a lesser degree at C3-C4 and C6-C7 Have recommend physical therapy for his neck, especially when his symptoms flare up; patient would like to hold off due to concerns about cost and will call for referral as needed (9) Lumbar degenerative disc disease: Code(s): M51.36 - Other intervertebral disc degeneration, lumbar region Category: Medical Qualifiers: Disc-related pain type: discogenic back pain only Qualified Code(s): M51.360 - Other intervertebral disc degeneration, lumbar region with discogenic back pain only Plan: Reinforced activity and weight-lifting restrictions Lumbar spine x-rays done in November 2023 revealed (+) moderate multilevel lumbar spondylosis with advanced facet arthritis in the [id number] lumbar spine Continue Ibuprofen 800 mg TID PRN and Cyclobenzaprine 5 mg TID PRN (10) Insomnia: Code(s): G47.00 - Insomnia, unspecified Category: Medical Qualifiers: Insomnia type: unspecified Qualified Code(s): G47.00 - Insomnia, unspecified Plan: Sleep hygiene reinforced Continue Trazodone 50 mg Q HS PRN (11) Obesity (BMI 30-39.9): Code(s): E66.9 - Obesity, unspecified Category: Medical Plan: Reinforced diet/exercise as tolerated/lose weight (12) Bilateral anterior knee pain: Code(s): M25.561 - Pain in right knee; M25.562 - Pain in left knee Category: Medical Plan: The patient has chronic bilateral knee pain, with temporary relief from prior cortisone shots. It was recommended that the patient follow up with Dr. David for potential repeat injections. Management includes using ibuprofen as needed and focusing on weight loss, which is expected to decrease pain and potentially avoid surgery. Plan Plan Patient was informed and verbally consented to the use of an ambient scribe for clinic note documentation during this visit. 1. Prediabetes The patient's HbA1c is 6.1%, trending upwards from 5.9, remaining in the prediabetic range. The plan is to implement a stricter diet and increase physical activity to prevent progression to diabetes. 2. Hypercholesterolemia The patient's cholesterol has slightly increased. This will be monitored closely, with dietary changes and increased activity also intended to address this. 3. History Of Vitamin D Deficiency The patient's vitamin D level dropped to 33 from 72.5, but remains in the normal range. The patient will continue taking vitamin D supplements. 4. Allergic Rhinitis The patient reports recurrent seasonal sneezing spells and difficulty breathing, and has run out of a previously used nasal spray. A prescription for nasal spray will be sent to the pharmacy. 5. Chronic Bilateral Knee Pain The patient has chronic bilateral knee pain, with temporary relief from prior cortisone shots. It was recommended that the patient follow up with Dr. David for potential repeat injections. Management includes using ibuprofen as needed and focusing on weight loss, which is expected to decrease pain and potentially avoid surgery. 6. Chronic Left Shoulder And Neck Pain The patient continues to experience chronic left shoulder pain and associated neck pain. Previous physical therapy offered some help, and the patient is encouraged to continue home exercises and remain active. Discussion Notes I reviewed the lab results with the patient, noting the slight increase in HbA1c and cholesterol. We discussed that while the vitamin D level had dropped, it remains in the normal range, and the patient should continue supplementation. I emphasized that a stricter diet and increased activity would be beneficial for both the prediabetes and cholesterol levels. We also discussed the chronic bilateral knee pain. I recommended following up with Dr. David for potential repeat cortisone injections, as they were effective in the past. I stressed that weight loss would be a lazaro factor in reducing knee pain and is a better long-term strategy than relying on shots or moving toward surgery. I addressed the patient's allergy symptoms by sending a prescription for a nasal spray to the pharmacy. Patient Instructions - Follow a stricter diet and increase your physical activity to help manage your prediabetes and cholesterol, and to help with weight loss. - Continue taking your vitamin D supplement. - I have sent a prescription for a nasal spray to your pharmacy for your allergy symptoms. - Make an appointment to see Dr. David to discuss your knee pain and the possibility of getting another cortisone anjection. - You can use ibuprofen for your knee pain as needed. - Losing weight will help reduce the strain on your knees and decrease your pain. Orders: Orders Complete Blood Count Auto Diff 4 Months E66.9 - Obesity, unspecified, E78.00 - Pure hypercholesterolemia, unspecified, I10 - Essential (primary) hypertension, I45.10 - Unspecified right bundle-branch block, J30.9 - Allergic rhinitis, unspecified, K52.9 - Noninfective gastroenteritis and colitis, unspecified, R09.81 - Nasal congestion, R73.01 - Impaired fasting glucose, R79.89 - Other specified abnormal findings of blood chemistry UA CC w/rflx Micro + Cult 4 Months E66.9 - Obesity, unspecified, E78.00 - Pure hypercholesterolemia, unspecified, I10 - Essential (primary) hypertension, I45.10 - Unspecified right bundle-branch block, J30.9 - Allergic rhinitis, unspecified, K52.9 - Noninfective gastroenteritis and colitis, unspecified, R09.81 - Nasal congestion, R73.01 - Impaired fasting glucose, R79.89 - Other specified abnormal findings of blood chemistry [facility]. Panel Fast 4 Months E66.9 - Obesity, unspecified, E78.00 - Pure hypercholesterolemia, unspecified, I10 - Essential (primary) hypertension, I45.10 - Unspecified right bundle-branch block, J30.9 - Allergic rhinitis, unspecified, K52.9 - Noninfective gastroenteritis and colitis, unspecified, R09.81 - Nasal congestion, R73.01 - Impaired fasting glucose, R79.89 - Other specified abnormal findings of blood chemistry Lipid Panel 4 Months E66.9 - Obesity, unspecified, E78.00 - Pure hypercholesterolemia, unspecified, I10 - Essential (primary) hypertension, I45.10 - Unspecified right bundle-branch block, J30.9 - Allergic rhinitis, unspecified, K52.9 - Noninfective gastroenteritis and colitis, unspecified, R09.81 - Nasal congestion, R73.01 - Impaired fasting glucose, R79.89 - Other specified abnormal findings of blood chemistry TSH reflex Free T4 4 Months E66.9 - Obesity, unspecified, E78.00 - Pure hypercholesterolemia, unspecified, I10 - Essential (primary) hypertension, I45.10 - Unspecified right bundle-branch block, J30.9 - Allergic rhinitis, unspecified, K52.9 - Noninfective gastroenteritis and colitis, unspecified, R09.81 - Nasal congestion, R73.01 - Impaired fasting glucose, R79.89 - Other specified abnormal findings of blood chemistry Vitamin D 25-OH Total 4 Months E66.9 - Obesity, unspecified, E78.00 - Pure hypercholesterolemia, unspecified, I10 - Essential (primary) hypertension, I45.10 - Unspecified right bundle-branch block, J30.9 - Allergic rhinitis, unspecified, K52.9 - Noninfective gastroenteritis and colitis, unspecified, R09.81 - Nasal congestion, R73.01 - Impaired fasting glucose, R79.89 - Other specified abnormal findings of blood chemistry Hemoglobin A1c 4 Months E66.9 - Obesity, unspecified, E78.00 - Pure hypercholesterolemia, unspecified, I10 - Essential (primary) hypertension, I45.10 - Unspecified right bundle-branch block, J30.9 - Allergic rhinitis, unspecified, K52.9 - Noninfective gastroenteritis and colitis, unspecified, R09.81 - Nasal congestion, R73.01 - Impaired fasting glucose, R79.89 - Other specified abnormal findings of blood chemistry Medications: Refilled fluticasone propionate 50 mcg/actuation administer into each nostril 1 spray intranasal BID 16 grams 3RF R09.81 - Nasal congestion fluticasone propionate 50 mcg/actuation administer into each nostril 1 spray intranasal BID 16 grams 3RF R09.81 - Nasal congestion loratadine (Allergy Relief (loratadine)) 10 mg PO DAILY PRN 30 tabs 0RF allergy symptoms J30.9 - Allergic rhinitis, unspecified loratadine (Allergy Relief (loratadine)) 10 mg PO DAILY PRN 30 tabs 0RF allergy symptoms J30.9 - Allergic rhinitis, unspecified
--- OUTSIDE RECORDS SUMMARY | 2025-08-24 20:23 | XMS_ITS | Clinical Summary ---
Author Organization [facility] Address [address] [place] [address] Phone Care Team Providers Care General Internal Medicine Doctor Name Role Phone Valeriy Ayon MD Primary Care Provider [phone] Allergies No known active allergies Medications amLODIPine [...] 11:59 PM EDT Hospital Encounter [facility] [address]rd [place] [address] Paul Bustamante, DO Discharge Disposition: Home or [...] Description 12/11/2025 8:00 AM EDT Office Visit [facility] [address] [facility] 3rd Floor, [address] [place] [address] [phone] Paul Bustamante DO [address] [facility] [address] [place] [phone] [email or web address] Health Maintenance Due Date Last Done Comments [...] 01/17/2020 INFLUENZA VACCINE (#1) 2025 COVID-19 VACCINE (1 - 2024-2 6 season) 2025 BLOOD PRESSURE [...] sec Prox Great Saphenous Vein Thigh Diameter Anterior-Human Resources Department Supervisor ior 0.5 cm Mid Great Saphenous Vein Thigh Valve Closure Time 0.6 sec Mid Great Saphenous Vein Thigh Diameter Anterior-Human Resources Department Supervisor ior 0.3 cm Knee Great Saphenous Vein Valve Closure Time 4.5 sec Knee Great Saphenous Vein Diameter Anterior-Human Resources Department Supervisor ior 0.2 cm Prox Great Saphenous Vein Calf Diameter Anterior-Human Resources Department Supervisor ior 0.2 cm Mid Great Saphenous Vein Calf Diameter Anterior-Human Resources Department Supervisor ior 0.2 cm Popliteal Fossa GSV Anterior-Human Resources Department Supervisor ior 0.2 cm Mid Small Saphenous Vein Calf Diameter Anterior-Human Resources Department Supervisor ior 0.2 cm GSV Sapheno-Femoral Diameter Anterior-Human Resources Department Supervisor ior 0.7 cm Prox Great Saphenous Vein Thigh Valve Closure Time 2.9 sec Prox Great Saphenous Vein Thigh Diameter Anterior-Human Resources Department Supervisor ior 0.5 cm Mid Great Saphenous Vein Thigh Valve Closure Time 3.6 sec Mid Great Saphenous Vein Thigh Diameter Anterior-Human Resources Department Supervisor ior 0.4 cm Dist Great Saphenous Vein Thigh Valve Closure Time 4.3 sec Dist Great Saphenous Vein Thigh Diameter Anterior-Human Resources Department Supervisor ior 0.3 cm Knee Great Saphenous Vein Closure time 1.6 sec Knee Great Saphenous Vein Diameter Anterior-Human Resources Department Supervisor ior 0.3 cm Prox Great Saphenous Vein Calf Valve Closure Time 2.0 sec Prox Great Saphenous Vein Calf Diameter Anterior-Human Resources Department Supervisor ior 0.3 cm Mid Small Saphenous Vein Calf Valve Closure Time 0.9 sec Mid Small Saphenous Vein Calf Diameter Anterior-Human Resources Department Supervisor ior 0.2 cm Anatomical Region Laterality Modality [...] Final Result from Last [address] [place] [id number] [place] [id number] [facility] H[facility] Care Teams General Internal Medicine Doctor Relationship Specialty Start Date End Date Valeriy Ayon MD [address] [place] [address] [place] [address] [place] [address] PCP - General Internal Medicine 12/26/24 Additional Source Comments The information contained in this document represents components of the legal health record. It is not the complete legal health record.[facility]
--- OUTSIDE RECORDS SUMMARY | 2025-08-24 20:23 | XMS_ITS | Patient Health Record ---
Author Organization [facility] Nenaarely Ramirez Address [address] [facility] [place] [address] Care Team Providers Care Metal Hardener Name Role Phone Deep Ayon MDneth Primary Care Provider Sonam Johnson Unavailable [phone] Reason For Referral No Information Medications Medication [...] Treatment Pending Test Test Name Order Date ,[id number] TENDON SHEATH/LIGAMENT 1 10/10/2019 Insurance Providers Payer Name Payer Address Payer Phone Subscriber Number Group Number Insured Name Patient Relationship to Insured Coverage Start Date Coverage End Date [facility] [address] [place] [address] [phone] [id number] Larry Thibodeaux Self - patient is the insured Medical (General) History Surgical History Surgery Date(Month/Year)
--- OUTSIDE RECORDS SUMMARY | 2025-08-24 20:23 | XMS_ITS | Encounter Summary ---
Author Organization [facility] Address [address] [facility] [address] [place] [address] Phone Care Team Providers Care Mobile Patrol Officer Name Role Phone Valeriy Ayon MD Primary Care Provider [phone] Encounter Details Date Type Department Care Team (Late st Contact Info) Description 12/27/2024 Procedure Pass Echo [facility] [place], [place] [phone] Social History Tobacco Use Types Packs/Day Years [...] Description 12/11/2025 8:00 AM EDT Office Visit [facility] [address] Floor, [address] [place], [place] [phone] Paul Bustamante, DO [address] [facility] [address] [place] [address] documented as of this encounter Visit Diagnoses Not on filedocumented in this encounter Care Teams Mobile Patrol Officer Relationship Specialty Start Date End Date Valeriy Ayon MD [address] [place] [address] [place] [address] PCP - General Internal Medicine 12/26/24 documented as of this encounter Additional Source Comments The information contained in this document represents components of the legal health record. It is not the complete legal health record.[facility]
--- OUTSIDE RECORDS SUMMARY | 2025-08-24 20:23 | XMS_ITS | Patient Health Record ---
Author Organization [facility] Address [address] [place] [phone] Care Team Providers Care Customer Sales Service Manager Name Role Phone Gabo WARD Power Primary Care Provider Burke London Jr [phone] Allergies No Known Allergies Results Component Value Reference Range Notes Pathology Reviewed date:05/17/2025 08:35:38 AM Interpretation: Performing Lab:[facility], [address] [place] [phone] Notes/Report: Reason For Referral No Information Medications Medication SIG (Take, Route, Frequency, Duration) Notes Start Date End Date Status Ibuprofen 200 MG Tablet 1 tablet with fo od or milk as needed Orally prn Active Metoprolol Succinate ER 50 MG Tablet Extended Release 24 Hour Oral; Duration: 30 Days Acti ve amLODIPine Besylate 10 MG Tablet TAKE 1 TABLET BY MOUTH DAILY Oral; Duration: 30 Days Active Loratadine 10 MG Tablet TAKE 1 TABLET BY MOUTH EVERY DAY NEEDED FOR ALLERGY Oral; Duration: 30 Days Active amLODIPine Besylate 10 MG Tablet Oral; Duration: 30 Days Acti ve Immunizations Vaccine Route Administration Date Status Comme nts Influenza Unknown 08/10/2019 Refused Influenza Unknown 07/26/2024 Administered Social History Tobacco Use: Social History Observation Description Date Details (start date - stop date) Former Smoker NA - NA Social History Drugs/Alcohol: Social Info Question Answer Notes Alcohol Screen Did you have a drink containing alcohol in the past year? Yes How often did you have a drink containing [...] Never (0 point) Points 2 Interpretation Negative Tobacco Use: Social Info Question Answer Notes Tobacco Use/Smoking Patient is a former smoker How long has it been since you last smoked? 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 Problem Gastroesophageal reflux disease (750939921) GERD without esophagitis (K21.9) Active confirmed Vital Signs Temperature 98.7 degrees Fahrenheit 03/22/2025 Blood pressure diastolic 01 mm Hg 03/22/2025 Height 68 in 03/22/2025 Blood pressure systolic 001 mm Hg 03/22/2025 Weight 226.4 lbs 03/22/2025 BMI 34.42 kg/m2 03/22/2025 Encounters Encounter Location Date Provider Diagnosis [facility] Outpatient [address] [place] [id number] 05/05/2025 Burke Stewart Jr [facility] [address] [place] [phone] 03/22/2025 Burke Stewart Jr Kent esophagus K22.70 and Encounter for screening for malignant neoplasm of colon Z12.11 [facility] [address] [place] [phone] 05/17/2025 Burke Stewart Jr Assessments Encounter Date [...] Insured Coverage Start Date Coverage End Date [facility] [address] [place] [phone] [id number] ABHIJIT HENDERSON Self - patient is the insured Medical (General) History Medical History History ICD Code Arthritis Hypertension Kent's esophagus, EGD 11/06 0, no dysplasia, 2-year follow-up. H. pylori infection, treated. Colonoscopy 11/24, normal, 5-year follow- up Chest pain with negative cardiac workup Surgical History Surgery Date(Month/Year)
== END 2025-08-24 15:57 | disposition home or self-care (01) ==
LOC: HO.HMCH 14:54
PROVIDERS: PCP Internal Medicine
DX: E78.00 Pure hypercholesterolemia, unspecified (principal); I10 Essential (primary) hypertension; R73.01 Impaired fasting glucose; R79.89 Other specified abnormal findings of blood chemistry; R07.9 Chest pain, unspecified; J30.9 Allergic rhinitis, unspecified; M12.812 Other specific arthropathies, not elsewhere classified, left shoulder; M50.90 Cervical disc disorder, unspecified, unspecified cervical region; M51.360 Other intervertebral disc degeneration, lumbar region with discogenic back pain only; G47.00 Insomnia, unspecified; M25.561 Pain in right knee; M25.562 Pain in left knee

== ENCOUNTER 2025-09-15 07:21 | Outpatient (AMB) | payer OTHER, SELFPAY ==
--- NOTE | 2025-09-08 09:56 | MHC.OFFVIS ---
Intake Visit Reasons: Former Smoker Allergies hydrocodone Adverse Reaction (Intermediate, Verified 08/24/25 15:40) nausea,dizziness HPI HPI Former Smoker: Details: Initial telehealth visit for this 55yo former smoker with a 35PYH. Patient started smoking at age 15 for 39 years at 1ppd. Quit 10/2024 Currently occasionally vaping. ) . Reports daily marijuana use. Denies second hand smoke exposure. Denies exposure to chemicals or substances like asbestos. . Denies known family history of lung cancer. Denies personal history of cancers. Denies chest CT in last year. . Denies recent travel outside the [place]. Denies recent respiratory illness or recent hospitalization for respiratory issues. History testing positive for COVID. x3. Admits receiving COVID Vaccine. . Denies fever, chills, new/worsening cough, hemoptysis, hoarseness or dysphagia. Denies significant chest pain, significant dyspnea or unintentional weight loss. Patient Lung Cancer Screening Questionnaire reviewed with patient by provider. . Shared Decision Making Completed. Patient meets criteria. Discussed in detail with patient, the risk vs benefit of LDCT screening. Patient consents to proceed with scan. Discussed smoking cessation. [facility] Medical History (Updated 09/08/25 @ 10:05 by Bee Trevizo PA-C) History of Helicobacter pylori infection Obesity (BMI 30-39.9) HTN (hypertension) Personal history of nicotine dependence Right knee pain RBBB Chest pain Lumbar degenerative disc disease Pure hypercholesterolemia Cervical disc disease Allergic rhinitis Occipital headache Achilles tendinitis Rotator cuff arthropathy of left shoulder Surgical History History of esophagogastroduodenoscopy (EGD) (11/2019) History of colonoscopy Family History (Updated 09/08/25 @ 09:59 by Bee Trveizo PA-C) Father CVD (cardiovascular disease) Mother Diabetes Brain tumor Brother Lung cancer Brother Colon cancer Social History (Updated 09/08/25 @ 10:05 by Bee Trevizo PA-C) Household Members: Family Housing: House Are you a primary interior plant caretaker to a significant other at home: No Do you presently have visiting nurse or other home services: No 75 years or older and lives alone: No Alcohol intake: current Alcohol intake frequency: holidays/special occasions only Patient Tobacco Use Status: Former Tobacco user Tobacco use type: Cigarette Years Smoked: (onset 15yo, 1ppd x 39yrs, 35pyh, quit 10/2024, now vaping e-Cigarette/Vaping Use: Currently Using Second Hand Smoke Exposure: Yes service: No Current occupational status: employed Current occupational exposures/hazards: No Cognitive needs: No Hearing needs: No Vision needs: Yes Telehealth Telehealth Telehealth Platform: Telephone Location of provider rendering services: practice address Location of patient: address on file Patient Identification confirmed using: Name, : Yes Telehealth method: voice only Patient verbally consented to treatment: Yes Patient verbally consented to billing insurance company: Yes Patient informed of any privacy concerns related to visit: Yes Minutes spent on Phone/Video with Pt.: 15 Assessment & Plan Assessment & Plan (1) Personal history of nicotine dependence: Comment: (onset 15yo, 1ppd x 39yrs, 35pyh, quit 10/2024, now vaping Code(s): Z87.891 - Personal history of nicotine dependence Category: Medical Plan: - SDM visit completed today via phone - LDCT scan scheduled for 09/15/25. - Patient meets criteria for LDCT for lung cancer screening purposes and is asymptomatic. - Smoking cessation counseling offered. Patients can always call [phone]. - Will arrange for a LDCT scan of the chest for screening purposes at [facility]. - Risks, benefits, and alternatives were discussed in detail and the patient agrees to proceed. - Risks discussed include but are not limited to: radiation exposure, anxiety during testing and while awaiting results, false negatives, false positives and possibility of additional intervention such as further imaging or surgical procedures for benign disease. - Benefits are obviously detection of lung cancer at an early stage which can lead to improved outcomes. - Discussed the importance of screening program compliance with adherence to yearly LDCT scan as scheduled - or sooner interval scans for personalized screening regimen. - Discussed follow up plan. Our office will send a letter discussing results and if needed set up phone call and office visit based on CT findings. - Patient educated on results categorization and the management decisions for suspicious findings potentially found on the screening LDCT scan. Any patient with a Lung RADS score of 3 or 4 will be reviewed by a multidisciplinary team at [facility] to form a plan of action in regards to scan findings. - If further work up is warranted for a suspicious lung finding this will be followed by the Lung Cancer Screening program in conjunction with the Thoracic Surgery Department at [facility]. - A copy of the office note and LDCT will be sent to the patient's PCP - as well as documentation on any associated further plans of care. - Incidental findings on LDCT are the PCP's responsibility. These findings are indicated with an S finding on the LDCT Assessment. A note discussing the findings will be sent to the PCP who is then responsible for further management. - All questions answered.? Coding Level of Care Code Lung Cancer Screening G0296 Diagnoses Personal history of nicotine dependence Z87.891
--- OUTSIDE RECORDS SUMMARY | 2025-09-15 07:28 | XMS_ITS | Patient Health Record ---
Author Organization [facility] Nenaarely Ramirez Address [address] [facility] [place] [address] Care Team Providers Care Fire Supervisor Name Role Phone Deep Ayon MDneth Primary Care Provider Sonam Johnson Unavailable [phone] Reason For Referral No Information Medications Medication [...] Treatment Pending Test Test Name Order Date ,[id number] TENDON SHEATH/LIGAMENT 1 10/10/2019 Insurance Providers Payer Name Payer Address Payer Phone Subscriber Number Group Number Insured Name Patient Relationship to Insured Coverage Start Date Coverage End Date [facility] [address] [place] [address] [id number] Larry Thibodeaux Self - patient is the insured Medical (General) History Surgical History Surgery Date(Month/Year)
--- OUTSIDE RECORDS SUMMARY | 2025-09-15 07:28 | XMS_ITS | Patient Health Record ---
Author Organization [facility] Address [address] [place] [phone] Care Team Providers Care Clinical Research Assistant Name Role Phone Gabo WARD [place] Primary Care Provider Burke London Jr Allergies No Known Allergies Results Component Value Reference Range Notes Pathology Reviewed date:05/17/2025 08:35:38 AM Interpretation: Performing Lab:[facility], [address] [place] [phone] Notes/Report: Reason For Referral No Information Medications [...] Info Options Details Miscellaneous: Marital status: 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 Problems Problem Type SNOMED Code ICD Code Onset Dates Problem Status W/U Status Risk Notes Problem Screening for malignant neoplasm of colon (341555384) Encounter for screening for malignant neoplasm of colon (Z12.11) Active confirmed Problem Change in bowel habit (46665181) Change in bowel habits (R19.4) Active confirmed Problem Kent esophagus (689377095) 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 Problem Gastroesophageal reflux disease (074208187) GERD without esophagitis (K21.9) Active confirmed Vital Signs Temperature 98.7 degrees Fahrenheit 03/22/2025 Blood pressure diastolic 01 mm Hg 03/22/2025 Height 68 in 03/22/2025 Blood pressure systolic 001 mm Hg 03/22/2025 Weight 226.4 lbs 03/22/2025 BMI 34.42 kg/m2 03/22/2025 Encounters Encounter Location Date Provider Diagnosis [facility] Outpatient [address] [place] [id number] 05/05/2025 Burke Stewart Jr [facility] [address] [place] [phone] 03/22/2025 Burke Stewart Jr Kent esophagus K22.70 and Encounter for screening for malignant neoplasm of colon Z12.11 [facility] [address] [place] [phone] 05/17/2025 Burke Stewart Jr Assessments Encounter Date [...] Insured Coverage Start Date Coverage End Date [facility] [address] [place] [address] [id number] ABHIJIT HENDERSON Self - patient is the insured Medical (General) History Medical History History ICD Code Arthritis Hypertension Kent's esophagus, EGD 11/06 0, no dysplasia, 2-year follow-up. H. pylori infection, treated. Colonoscopy 11/24, normal, 5-year follow- up Chest pain with negative cardiac workup Surgical History Surgery Date(Month/Year)
== END 2025-09-15 07:31 ==
LOC: HO.HPS 07:21
PROVIDERS: PCP Internal Medicine; Visit Provider Physician Assistant Medical
DX: Z87.891 Personal history of nicotine dependence (principal)
CPT/HCPCS: G0296

== ENCOUNTER 2025-09-15 10:41 | Outpatient (REF) | payer OTHER, SELFPAY ==
--- NOTE | ~2025-09-15 | CT_ITS ---
EXAMINATION: CT LOW-DOSE SCREENING CHEST WITHOUT CONTRAST CLINICAL INFORMATION: 55-year-old male, former smoker, quit 1 year ago, 37 pack years. Lung cancer screening. COMPARISON: None available. TECHNIQUE: Multidetector volumetric CT imaging of the chest is performed on a Siemens SOMATOM Definition scanner without contrast using low dose technique. Additional 2D coronal and sagittal reformatted images and axial 3D maximum intensity projection (MIP) images are generated on the CT workstation. This CT examination was performed using dose optimization techniques as appropriate, variously including the following: *Automated exposure control *Adjustment of mA and/or kV according to patient size (this includes techniques or standardized protocols for targeted exams where dose is matched to indication/reason for exam; i.e. extremities or head) *Use of iterative reconstruction technique FINDINGS: PULMONARY NODULES: There are no suspicious pulmonary nodules. LUNGS: Lungs are well inspired bilaterally. Minor scarring is present in the anteromedial right lower lobe. Lungs otherwise clear. No significant emphysema present. No effusions or pneumothorax. Small airways normal. MEDIASTINUM: Normal thyroid. No mediastinal lymph nodes or masses. Aorta is normal in caliber and course. No aneurysm. Pulmonary trunk is normal in size. Heart size is normal. No pericardial effusion. Esophagus is unremarkable. Central airways are normal. CORONARY ARTERY CALCIFICATION: Minimal. CHEST WALL/AXILLA: No abnormal lymph nodes or masses. UPPER ABDOMEN: There is hepatomegaly with diffuse fatty infiltration of the liver. There is no suspicious focal liver lesion. There is focal fatty sparing abutting the gallbladder fossa. There is a small diverticulum arising from the gastric fundus dorsally. Remainder of the upper abdominal contents included in the imaging appear normal allowing for low-dose noncontrast technique. OSSEOUS STRUCTURES: No suspicious lytic or blastic bone lesions. CT/CT lung screening IMPRESSION: 1. No suspicious pulmonary nodules are present. 2. The lungs are clear without active disease. ASSESSMENT: 1. Lung-RADS Category 1: Negative. There are no nodules or there are definitely benign nodules. 2. Lung-RADS Category S: Negative. There are no clinically significant or potentially clinically significant findings not related to the lungs requiring urgent additional evaluation. RECOMMENDATION: Continued routine annual low-dose CT lung screening in 1 year is recommended. An order for CT CHEST LOW DOSE CANCER SCREENING ([id number]) can be placed. Electronically signed by: Johnny Martins MD 09/15/2025 11:27 AM EST
== END 2025-09-15 10:42 | disposition home or self-care (01) ==
LOC: HO.CT 10:41
PROVIDERS: PCP Internal Medicine; Visit Provider Physician Assistant Medical
DX: Z12.2 Encounter for screening for malignant neoplasm of respiratory organs (principal); Z87.891 Personal history of nicotine dependence
CPT/HCPCS: 71271; G0296

== ENCOUNTER → 2025-09-15 10:42 | Outpatient (BNV) | payer OTHER, SELFPAY | PROVIDERS: PCP Internal Medicine; Visit Provider Radiology Diagnostic Radiology | DX: Z87.891 Personal history of nicotine dependence (principal) | CPT/HCPCS: 71271 ==